=== PATIENT | male | born 1940 | race Caucasian/White ===

== ENCOUNTER 2017-03-13 10:06 | Outpatient (CLI) | payer MEDICARE, BC, SELFPAY | END 2017-03-13 13:30 | disposition home or self-care (01) | PROVIDERS: Visit Provider Internal Medicine | DX: R06.02 Shortness of breath (principal); Z86.39 Personal history of other endocrine, nutritional and metabolic disease; C67.9 Malignant neoplasm of bladder, unspecified | CPT/HCPCS: 71250; 94060; 94620; 94726; 94729; 96365; J0256 ==

== ENCOUNTER 2017-03-21 09:00 | Outpatient (CLI) | payer MEDICARE, BC, SELFPAY | END 2017-03-21 11:55 | disposition home or self-care (01) | PROVIDERS: Visit Provider Internal Medicine Adolescent Medicine | DX: C67.9 Malignant neoplasm of bladder, unspecified (principal) | CPT/HCPCS: 82728; 96365; J0256 ==

== ENCOUNTER 2017-03-28 11:30 | Outpatient (CLI) | payer MEDICARE, BC, SELFPAY ==
[2017-03-28 12:02] VITALS: BMI 24.7
[2017-03-28 14:30] VITALS: BP 145/70; PULSE 83; RESP 20; TEMP 37.1; O2SAT 96
== END 2017-03-28 15:00 | disposition home or self-care (01) ==
LOC: INF 13:16
PROVIDERS: Family Provider Internal Medicine Adolescent Medicine; PCP Internal Medicine Adolescent Medicine; Visit Provider Internal Medicine Adolescent Medicine
DX: C67.9 Malignant neoplasm of bladder, unspecified (principal)
CPT/HCPCS: 96365; 96366; 99195; J0256

== ENCOUNTER 2017-04-04 12:30 | Outpatient (CLI) | payer MEDICARE, BC, SELFPAY ==
[2017-04-04 12:51] VITALS: BMI 25.2
[2017-04-04 13:20] VITALS: BP 141/83; PULSE 68; RESP 20; TEMP 36.9; O2SAT 98
[2017-04-04 14:00] VITALS: BP 135/78; PULSE 72; RESP 18; TEMP 36.9; O2SAT 98
[2017-04-04 14:25] LABS: Ferritin 52 ng/mL (8-388)
[2017-04-04 14:55] VITALS: BP 133/71; PULSE 68; RESP 18; TEMP 36.9; O2SAT 98
--- NOTE | 2017-04-04 15:15 | PC.NURSE ---
START TIME 1320 STOP TIME 2467
--- NOTE | 2017-04-04 15:16 | PC.NURSE ---
START TIME 1320 STOP TIME 1500
== END 2017-04-04 15:10 | disposition home or self-care (01) ==
PROVIDERS: Family Provider Internal Medicine Adolescent Medicine; PCP Internal Medicine Adolescent Medicine; Visit Provider Internal Medicine Adolescent Medicine
DX: C67.9 Malignant neoplasm of bladder, unspecified (principal)
CPT/HCPCS: 82728; 96365; J0256

== ENCOUNTER 2017-04-11 12:15 | Outpatient (CLI) | payer MEDICARE, BC, SELFPAY ==
[2017-04-11 12:55] VITALS: BP 134/87; PULSE 90; RESP 20; O2SAT 93
[2017-04-11 13:25] VITALS: BP 170/88; PULSE 86; RESP 18
[2017-04-11 13:55] VITALS: BP 129/72; PULSE 81; RESP 18
[2017-04-11 14:25] VITALS: BP 128/79; PULSE 78; RESP 18
[2017-04-11 14:40] VITALS: BP 140/76; PULSE 79; RESP 18
--- NOTE | 2017-04-11 15:03 | PC.NURSE ---
TOTAL VOLUME INCLUDES PROLASTIN AND NS.
== END 2017-04-11 15:00 | disposition home or self-care (01) ==
LOC: INF 12:23
PROVIDERS: Family Provider Internal Medicine Adolescent Medicine; PCP Internal Medicine Adolescent Medicine; Visit Provider Internal Medicine Adolescent Medicine
DX: C67.9 Malignant neoplasm of bladder, unspecified (principal)
CPT/HCPCS: 96365; 96366; J0256

== ENCOUNTER 2017-04-18 10:35 | Outpatient (CLI) | payer MEDICARE, BC, SELFPAY ==
[2017-04-18 10:34] VITALS: BP 141/58; PULSE 68; RESP 20; TEMP 36.4; O2SAT 98
[2017-04-18 15:20] VITALS: BP 123/49; PULSE 68; RESP 20; TEMP 36.4; O2SAT 98
== END 2017-04-18 12:00 | disposition home or self-care (01) ==
LOC: INF 15:25
PROVIDERS: Family Provider Internal Medicine Adolescent Medicine; PCP Internal Medicine Adolescent Medicine; Visit Provider Internal Medicine Adolescent Medicine
DX: C67.9 Malignant neoplasm of bladder, unspecified (principal)
CPT/HCPCS: 96365; J0256

== ENCOUNTER 2017-04-25 11:00 | Outpatient (CLI) | payer MEDICARE, BC, SELFPAY ==
[2017-04-25 11:45] VITALS: BP 140/80; PULSE 68; RESP 20; TEMP 36.4; O2SAT 98
[2017-04-25 12:30] VITALS: BP 118/70; PULSE 68; RESP 20; TEMP 36.6; O2SAT 96
[2017-04-25 13:05] VITALS: BP 150/65; PULSE 68; RESP 20; TEMP 36.4; O2SAT 94
== END 2017-04-25 13:10 | disposition home or self-care (01) ==
LOC: INF 18:12
PROVIDERS: Family Provider Internal Medicine Adolescent Medicine; PCP Internal Medicine Adolescent Medicine; Visit Provider Internal Medicine Adolescent Medicine
DX: C67.9 Malignant neoplasm of bladder, unspecified (principal)
CPT/HCPCS: 96365; J0256

== ENCOUNTER 2017-05-02 12:00 | Outpatient (CLI) | payer MEDICARE, BC, SELFPAY ==
[2017-05-02 12:49] VITALS: BMI 24.7
[2017-05-02 13:10] VITALS: BP 164/85; PULSE 72; RESP 20
[2017-05-02 13:54] LABS: Ferritin 54 ng/mL (8-388)
[2017-05-02 14:10] VITALS: BP 156/81; PULSE 77; RESP 18
--- NOTE | 2017-05-02 17:19 | PC.NURSE ---
NS AND PROLASTIN TOTAL VOLUME = 150 ML
== END 2017-05-02 14:20 | disposition home or self-care (01) ==
LOC: INF 13:09
PROVIDERS: Family Provider Internal Medicine Adolescent Medicine; PCP Internal Medicine Adolescent Medicine; Visit Provider Internal Medicine Adolescent Medicine
DX: C67.9 Malignant neoplasm of bladder, unspecified (principal)
CPT/HCPCS: 82728; 96365; J0256

== ENCOUNTER 2017-05-09 12:00 | Outpatient (CLI) | payer MEDICARE, BC, SELFPAY ==
[2017-05-09 12:30] VITALS: BP 137/75; PULSE 81; RESP 20; TEMP 36.6; O2SAT 95
[2017-05-09 12:45] VITALS: BP 132/69; PULSE 79; RESP 20; TEMP 36.6; O2SAT 96
[2017-05-09 13:15] VITALS: BP 140/72; PULSE 69; RESP 20; O2SAT 95
[2017-05-09 13:45] VITALS: BP 139/68; PULSE 74; RESP 18; O2SAT 95
[2017-05-09 14:00] VITALS: BP 136/78; PULSE 72; RESP 20; TEMP 36.5; O2SAT 94
== END 2017-05-09 14:00 | disposition home or self-care (01) ==
LOC: INF 16:05
PROVIDERS: Family Provider Internal Medicine Adolescent Medicine; PCP Internal Medicine Adolescent Medicine; Visit Provider Internal Medicine Adolescent Medicine
DX: C67.9 Malignant neoplasm of bladder, unspecified (principal)
CPT/HCPCS: 96365; J0256

== ENCOUNTER 2017-05-16 11:00 | Outpatient (CLI) | payer MEDICARE, BC, SELFPAY ==
[2017-05-16 11:45] VITALS: BP 152/85; PULSE 81; RESP 16; O2SAT 94
[2017-05-16 12:15] VITALS: BP 148/81; PULSE 73; RESP 16; O2SAT 94
[2017-05-16 12:45] VITALS: BP 134/71; PULSE 78; RESP 16; O2SAT 94
[2017-05-16 16:31] VITALS: BP 122/71; PULSE 71; RESP 18
--- NOTE | 2017-05-16 16:35 | PC.NURSE ---
iv dc'd @[id number]. CATHETER INTACT. COVERED WITH 2X2S AND FLORINDA PER ROSLYN.
== END 2017-05-16 13:55 | disposition home or self-care (01) ==
LOC: INF 11:15
PROVIDERS: Family Provider Internal Medicine Adolescent Medicine; PCP Internal Medicine Adolescent Medicine; Visit Provider Internal Medicine Adolescent Medicine
DX: C67.9 Malignant neoplasm of bladder, unspecified (principal); Z51.11 Encounter for antineoplastic chemotherapy
CPT/HCPCS: 96365; J0256

== ENCOUNTER 2017-05-23 11:27 | Outpatient (CLI) | payer MEDICARE, BC, SELFPAY ==
[2017-05-23 12:30] VITALS: BP 140/72; PULSE 79; RESP 18; TEMP 36.7; O2SAT 92
[2017-05-23 13:00] VITALS: BP 138/77; PULSE 77
[2017-05-23 13:30] VITALS: BP 101/83; PULSE 77; RESP 22
== END 2017-05-23 13:30 | disposition home or self-care (01) ==
LOC: INF 11:27
PROVIDERS: Family Provider Internal Medicine Adolescent Medicine; PCP Internal Medicine Adolescent Medicine; Visit Provider Internal Medicine Adolescent Medicine
DX: C67.9 Malignant neoplasm of bladder, unspecified
CPT/HCPCS: 96365; J0256

== ENCOUNTER 2017-05-30 11:00 | Outpatient (CLI) | payer MEDICARE, BC, SELFPAY ==
[2017-05-30 11:04] VITALS: BMI 24.7
[2017-05-30 11:59] LABS: Ferritin 48 ng/mL (8-388)
[2017-05-30 12:10] VITALS: BP 161/92; PULSE 75; RESP 20; O2SAT 90
[2017-05-30 12:40] VITALS: BP 152/91; PULSE 81; RESP 18
[2017-05-30 13:10] VITALS: BP 141/74; PULSE 82; RESP 18
[2017-05-30 13:35] VITALS: BP 123/60; PULSE 71; RESP 18
--- NOTE | 2017-05-30 15:48 | PC.NURSE ---
1210 - PROLASTIN INFUSION STARTED AT THIS TIME.
--- NOTE | 2017-05-30 15:51 | PC.NURSE ---
TOTAL VOLUME INCLUDES NS AND PROLASTIN
== END 2017-05-30 14:00 | disposition home or self-care (01) ==
LOC: INF 11:16
PROVIDERS: Family Provider Internal Medicine Adolescent Medicine; PCP Internal Medicine Adolescent Medicine; Visit Provider Internal Medicine Adolescent Medicine
DX: Z51.11 Encounter for antineoplastic chemotherapy (principal); C67.9 Malignant neoplasm of bladder, unspecified
CPT/HCPCS: 82728; 96365; J0256

== ENCOUNTER 2017-06-06 10:50 | Outpatient (CLI) | payer MEDICARE, BC, SELFPAY ==
[2017-06-06 11:05] VITALS: BP 124/70; PULSE 68; RESP 20; TEMP 36.9; O2SAT 96
[2017-06-06 12:00] VITALS: BP 126/70; PULSE 70; RESP 20; TEMP 36.9; O2SAT 96
[2017-06-06 13:00] VITALS: BP 132/70; PULSE 72; RESP 20; TEMP 36.4; O2SAT 96
== END 2017-06-06 13:00 | disposition home or self-care (01) ==
LOC: INF 10:50
PROVIDERS: Family Provider Internal Medicine Adolescent Medicine; PCP Internal Medicine Adolescent Medicine; Visit Provider Internal Medicine Adolescent Medicine
DX: Z51.11 Encounter for antineoplastic chemotherapy (principal); C67.9 Malignant neoplasm of bladder, unspecified
CPT/HCPCS: 96365; 96366; J0256

== ENCOUNTER 2017-06-13 11:40 | Outpatient (CLI) | payer MEDICARE, BC, SELFPAY ==
[2017-06-13 12:20] VITALS: BP 151/92; PULSE 89; RESP 22
[2017-06-13 12:50] VITALS: BP 156/86; PULSE 91; RESP 20
[2017-06-13 13:20] VITALS: BP 148/80; PULSE 90; RESP 20
[2017-06-13 13:40] VITALS: BP 142/72; PULSE 91; RESP 20
== END 2017-06-13 15:10 | disposition home or self-care (01) ==
LOC: INF 11:48
PROVIDERS: Family Provider Internal Medicine Adolescent Medicine; PCP Internal Medicine Adolescent Medicine; Visit Provider Internal Medicine Adolescent Medicine
DX: C67.9 Malignant neoplasm of bladder, unspecified (principal)
CPT/HCPCS: 96365; J0256

== ENCOUNTER 2017-06-20 10:40 | Outpatient (CLI) | payer MEDICARE, BC, SELFPAY ==
[2017-06-20 11:30] VITALS: BP 140/88; PULSE 79; RESP 20
[2017-06-20 12:00] VITALS: BP 158/83; PULSE 101; RESP 18
[2017-06-20 12:30] VITALS: BP 144/72; PULSE 88; RESP 18
--- NOTE | 2017-06-20 14:18 | PC.NURSE ---
TOTAL VOLUME INCLUDES PROLASTIN AND NS
== END 2017-06-20 14:00 | disposition home or self-care (01) ==
LOC: INF 10:44
PROVIDERS: Family Provider Internal Medicine Adolescent Medicine; PCP Internal Medicine Adolescent Medicine; Visit Provider Internal Medicine Adolescent Medicine
DX: Z51.11 Encounter for antineoplastic chemotherapy (principal); C67.9 Malignant neoplasm of bladder, unspecified
CPT/HCPCS: 96365; J0256

== ENCOUNTER → 2017-06-23 10:42 | Outpatient (CLI) | payer MEDICARE, BC, SELFPAY ==
--- NOTE | 2017-06-23 10:55 | XR_ITS ---
XR chest 2V XR chest 2V Ordering Physician: Fatemeh Harper Patient Age: 76 years: Male HISTORY: ITS.REASON: COPD, SOB TECHNIQUE: PA and lateral chest COMPARISON :02/25/2017 2 view chest . Also CTA chest from February 2017 FINDINGS Advanced COPD hyperexpansion again noted but I see nothing definitely acute. No focal pneumonia. No pneumothorax. No pleural effusion. Abundant chronic changes . Again on as on previous studies are some thickening at the top of a bleb along,. Beneath the fissure on right. Most prominent bleb is was previously seen at the medial right base, again noted-stable. Fibrotic changes at the left lower lobe are again noted and yield stable coarsening markings here. No pleural effusion with no pneumothorax. Heart jaky and Structures appear stable. Chest wall intact. Old wedge compression fracture at lower T-spine stable I believe T12 IMPRESSION: Nothing definitely acute Stable chest Advanced COPD/emphysema
[2017-06-23 11:03] LABS: Basophils % 0.3 % (0.1-2.0); Eosinophils # 0.2 K/mm3 (0.0-0.4); Eosinophils % 1.7 % (0.1-12.0); Hematocrit 43.8 % (42.0-52.0); Hemoglobin 13.3 g/dL (14.1-18.0); Lymphocytes # 1.4 K/mm3 (0.7-4.5); Mean Corpuscular HGB Conc 30.4 g/dL (31.8-35.4); Mean Corpuscular Hemoglobin 20.7 pg (27.0-31.2); Mean Corpuscular Volume 68.3 fl (80-94); Mean Platelet Volume 8.2 fl (7.4-10.4); Monocytes # 0.8 K/mm3 (0.1-1.0); Monocytes % 7.7 % (1.7-9.3); Neutrophils # 8.5 K/mm3 (1.8-7.8); Neutrophils % 77.3 % (37.0-80.0); Platelet Count 160 K/mm3 (142-424); Red Blood Count 6.42 M/mm3 (4.60-6.20); Red Cell Distribution Width 16.7 % (11.5-17.5)
[2017-06-23 11:08] LABS: Alanine Aminotransferase 24 U/L (12-78); Albumin Level 3.2 gm/dL (3.4-5.0); Albumin/Globulin Ratio 0.8 (1.1-1.8); Alkaline Phosphatase 114 U/L (46-116); Anion Gap 10.2 mEq/L (5-15); Aspartate Amino Transferase 17 U/L (15-37); Bilirubin,Total 1.4 mg/dL (0.2-1.0); Blood Urea Nitrogen 20 mg/dL (7-18); Calcium 8.5 mg/dL (8.5-10.1); Carbon Dioxide 29 mmol/L (21.0-32.0); Chloride 106 mmol/L (98-107); Creatinine,Serum 0.75 mg/dL (0.70-1.30); Estimated Glomerular Filt Rate 101 ml/min (>60); GFR (African American) 122 ML/MIN (>60); Globulin 3.8 gm/dl (1.3-3.2); Glucose 94 mg/dL (74-106); Potassium 4.2 mmoL/L (3.5-5.1); Sodium 141 mmol/L (136-145)
== END ==
PROVIDERS: Visit Provider Nurse Practitioner Family
DX: J44.1 Chronic obstructive pulmonary disease with (acute) exacerbation (principal); R06.02 Shortness of breath
CPT/HCPCS: 36415; 71046; 80053; 85025

== ENCOUNTER 2017-06-27 11:35 | Outpatient (CLI) | payer MEDICARE, BC, SELFPAY ==
[2017-06-27 11:55] VITALS: BMI 25.4
[2017-06-27 12:40] VITALS: BP 147/74; PULSE 79; RESP 20
[2017-06-27 13:03] LABS: Ferritin 155 ng/mL (8-388)
[2017-06-27 14:30] VITALS: BP 130/80; PULSE 91; RESP 18
== END 2017-06-27 14:45 | disposition home or self-care (01) ==
LOC: INF 11:44
PROVIDERS: Family Provider Internal Medicine Adolescent Medicine; PCP Internal Medicine Adolescent Medicine; Visit Provider Internal Medicine Adolescent Medicine
DX: Z51.11 Encounter for antineoplastic chemotherapy (principal); C67.9 Malignant neoplasm of bladder, unspecified
CPT/HCPCS: 82728; 96365; 96366; J0256

== ENCOUNTER 2017-07-04 09:50 | Outpatient (CLI) | payer MEDICARE, BC, SELFPAY ==
[2017-07-04 11:30] VITALS: BP 125/78; PULSE 68; RESP 20; TEMP 36.9; O2SAT 98
[2017-07-04 12:30] VITALS: BP 122/70; PULSE 68; RESP 20; TEMP 36.9; O2SAT 96
[2017-07-04 13:40] VITALS: BP 135/70; PULSE 68; RESP 20; TEMP 36.9; O2SAT 96
== END 2017-07-04 13:45 | disposition home or self-care (01) ==
LOC: INF 11:00
PROVIDERS: Family Provider Internal Medicine Adolescent Medicine; PCP Internal Medicine Adolescent Medicine; Visit Provider Internal Medicine Adolescent Medicine
DX: C67.9 Malignant neoplasm of bladder, unspecified (principal)
CPT/HCPCS: 96365; 96366; 99195; J0256

== ENCOUNTER 2017-07-11 09:25 | Outpatient (CLI) | payer MEDICARE, BC, SELFPAY ==
[2017-07-11 09:43] VITALS: BMI 25.4
[2017-07-11 10:50] VITALS: BP 166/68; PULSE 77; RESP 20; O2SAT 94
[2017-07-11 10:59] LABS: Ferritin 79 ng/mL (8-388)
[2017-07-11 11:20] VITALS: BP 149/73; PULSE 88; RESP 18
[2017-07-11 11:50] VITALS: BP 142/84; PULSE 83; RESP 18
[2017-07-11 12:10] VITALS: BP 127/103; PULSE 100; RESP 18
== END 2017-07-11 12:40 | disposition home or self-care (01) ==
LOC: INF 09:40
PROVIDERS: Family Provider Internal Medicine Adolescent Medicine; PCP Internal Medicine Adolescent Medicine; Visit Provider Internal Medicine Adolescent Medicine
DX: Z51.11 Encounter for antineoplastic chemotherapy (principal); R79.89 Other specified abnormal findings of blood chemistry; C67.9 Malignant neoplasm of bladder, unspecified
CPT/HCPCS: 82728; 96365; J0256

== ENCOUNTER → 2017-07-15 08:42 | Outpatient (POV) | payer MEDICARE, BC, SELFPAY | PROVIDERS: Visit Provider Internal Medicine | DX: Z00.00 Encounter for general adult medical examination without abnormal findings (principal) ==

== ENCOUNTER 2017-07-18 13:41 | Outpatient (CLI) | payer MEDICARE, BC, SELFPAY ==
[2017-07-18 14:10] VITALS: BP 122/78; PULSE 66; RESP 20; TEMP 37.1; O2SAT 96
[2017-07-18 15:30] VITALS: BP 142/75; PULSE 68; RESP 20; TEMP 36.4; O2SAT 96
== END 2017-07-18 15:20 | disposition home or self-care (01) ==
LOC: INF 13:41
PROVIDERS: Family Provider Internal Medicine Adolescent Medicine; Visit Provider Internal Medicine Adolescent Medicine
DX: C67.9 Malignant neoplasm of bladder, unspecified (principal)
CPT/HCPCS: 96365; J0256

== ENCOUNTER 2017-07-25 08:21 | Outpatient (CLI) | payer MEDICARE, BC, SELFPAY ==
[2017-07-25 10:00] VITALS: BP 162/88; PULSE 67; RESP 18; TEMP 36.6
[2017-07-25 10:30] VITALS: BP 158/78; PULSE 62; RESP 18
[2017-07-25 11:00] VITALS: BP 164/89; PULSE 66; RESP 18
[2017-07-25 11:15] VITALS: BP 164/89; PULSE 66; RESP 18
== END 2017-07-25 11:15 | disposition home or self-care (01) ==
LOC: INF 08:21
PROVIDERS: Family Provider Internal Medicine Adolescent Medicine; Visit Provider Internal Medicine Adolescent Medicine
DX: C67.9 Malignant neoplasm of bladder, unspecified (principal)
CPT/HCPCS: 96365; J0256

== ENCOUNTER 2017-08-01 15:00 | Outpatient (CLI) | payer MEDICARE, BC, SELFPAY ==
[2017-08-01 15:15] VITALS: BP 124/70; PULSE 68; RESP 20; TEMP 36.9; O2SAT 98
[2017-08-01 16:20] VITALS: BP 128/70; PULSE 68; RESP 20; TEMP 36.9; O2SAT 96
== END 2017-08-01 16:30 | disposition home or self-care (01) ==
LOC: INF 16:28
PROVIDERS: Family Provider Internal Medicine Adolescent Medicine; Visit Provider Internal Medicine Adolescent Medicine
DX: C67.9 Malignant neoplasm of bladder, unspecified (principal)
CPT/HCPCS: 96365; J0256

== ENCOUNTER 2017-08-08 12:30 | Outpatient (CLI) | payer MEDICARE, BC, SELFPAY ==
[2017-08-08 14:15] VITALS: BP 128/69; PULSE 82; RESP 20; TEMP 36.5; O2SAT 96
[2017-08-08 14:45] VITALS: BP 128/67; PULSE 79; RESP 18
[2017-08-08 15:25] VITALS: BP 132/71; PULSE 79; RESP 18
== END 2017-08-08 15:46 | disposition home or self-care (01) ==
LOC: INF 12:54
PROVIDERS: Family Provider Internal Medicine Adolescent Medicine; Visit Provider Internal Medicine Adolescent Medicine
DX: Z51.11 Encounter for antineoplastic chemotherapy (principal); C67.9 Malignant neoplasm of bladder, unspecified
CPT/HCPCS: 96365; 99195; J0256

== ENCOUNTER 2017-08-15 11:31 | Outpatient (CLI) | payer MEDICARE, BC, SELFPAY ==
[2017-08-15 11:37] VITALS: BMI 25.4
[2017-08-15 12:00] VITALS: BP 151/87; PULSE 72; RESP 18; TEMP 36.7; O2SAT 94
[2017-08-15 12:20] VITALS: BP 166/97; PULSE 83; RESP 22
[2017-08-15 12:44] LABS: Ferritin 76 ng/mL (8-388)
[2017-08-15 12:50] VITALS: BP 158/78; PULSE 82; RESP 22
[2017-08-15 13:20] VITALS: BP 141/74; PULSE 74; RESP 20
[2017-08-15 13:45] VITALS: BP 141/76; PULSE 79; RESP 18
== END 2017-08-15 13:45 | disposition home or self-care (01) ==
LOC: INF 11:31
PROVIDERS: Family Provider Internal Medicine Adolescent Medicine; Visit Provider Internal Medicine Adolescent Medicine
DX: Z51.11 Encounter for antineoplastic chemotherapy (principal); C67.9 Malignant neoplasm of bladder, unspecified
CPT/HCPCS: 82728; 96365; J0256

== ENCOUNTER 2017-08-22 12:25 | Outpatient (CLI) | payer MEDICARE, BC, SELFPAY ==
[2017-08-22 13:30] VITALS: BP 120/74; PULSE 87; RESP 20; O2SAT 91
[2017-08-22 14:00] VITALS: BP 126/58; PULSE 84; RESP 20
[2017-08-22 14:30] VITALS: BP 128/58; PULSE 74; RESP 20
== END 2017-08-22 15:00 | disposition home or self-care (01) ==
LOC: INF 12:44
PROVIDERS: Family Provider Internal Medicine Adolescent Medicine; Visit Provider Internal Medicine Adolescent Medicine
DX: Z51.11 Encounter for antineoplastic chemotherapy (principal); C67.9 Malignant neoplasm of bladder, unspecified
CPT/HCPCS: 96365; J0256

== ENCOUNTER 2017-08-29 09:50 | Outpatient (CLI) | payer MEDICARE, BC, SELFPAY ==
[2017-08-29 10:14] VITALS: BMI 25.4
[2017-08-29 10:55] VITALS: BP 155/88; PULSE 77; RESP 20; O2SAT 97
[2017-08-29 10:57] LABS: Ferritin 53 ng/mL (8-388)
[2017-08-29 11:25] VITALS: BP 151/87; PULSE 72; RESP 20
[2017-08-29 11:55] VITALS: BP 156/97; PULSE 85; RESP 20
[2017-08-29 12:20] VITALS: BP 124/72; PULSE 77; RESP 20
== END 2017-08-29 12:40 | disposition home or self-care (01) ==
LOC: INF 10:12
PROVIDERS: Family Provider Internal Medicine Adolescent Medicine; Visit Provider Internal Medicine Adolescent Medicine
DX: Z51.11 Encounter for antineoplastic chemotherapy (principal); C67.9 Malignant neoplasm of bladder, unspecified; E88.01 Alpha-1-antitrypsin deficiency
CPT/HCPCS: 82728; 96365; J0256

== ENCOUNTER 2017-09-05 10:50 | Outpatient (CLI) | payer MEDICARE, BC, SELFPAY ==
[2017-09-05 11:50] VITALS: BP 161/95; PULSE 70; RESP 20; O2SAT 96
[2017-09-05 12:20] VITALS: BP 139/70; PULSE 75; RESP 18
[2017-09-05 12:50] VITALS: BP 141/82; PULSE 79; RESP 18
[2017-09-05 13:10] VITALS: BP 130/73; PULSE 84; RESP 20
== END 2017-09-05 13:45 | disposition home or self-care (01) ==
LOC: INF 11:04
PROVIDERS: Family Provider Internal Medicine Adolescent Medicine; Visit Provider Internal Medicine Adolescent Medicine
DX: E88.01 Alpha-1-antitrypsin deficiency (principal)
CPT/HCPCS: 96365; J0256

== ENCOUNTER 2017-09-12 12:30 | Outpatient (CLI) | payer MEDICARE, BC, SELFPAY ==
[2017-09-12 13:15] VITALS: BP 170/95; PULSE 69; RESP 20; O2SAT 98
[2017-09-12 13:45] VITALS: BP 149/72; PULSE 74; RESP 18
[2017-09-12 14:15] VITALS: BP 128/90; PULSE 95; RESP 18
[2017-09-12 15:00] VITALS: BP 134/83; PULSE 76; RESP 18
== END 2017-09-12 15:15 | disposition home or self-care (01) ==
LOC: INF 12:41
PROVIDERS: Family Provider Internal Medicine Adolescent Medicine; Visit Provider Internal Medicine Adolescent Medicine
DX: E88.01 Alpha-1-antitrypsin deficiency (principal)
CPT/HCPCS: 96365; 96366; J0256

== ENCOUNTER 2017-09-19 09:50 | Outpatient (CLI) | payer MEDICARE, BC, SELFPAY ==
[2017-09-19 11:25] VITALS: BP 122/70; PULSE 68; RESP 20; TEMP 36.9; O2SAT 92
[2017-09-19 12:32] VITALS: BP 136/78; PULSE 79; RESP 22; TEMP 36.8; O2SAT 93
== END 2017-09-19 13:00 | disposition home or self-care (01) ==
LOC: INF 09:54
PROVIDERS: Family Provider Internal Medicine Adolescent Medicine; Visit Provider Internal Medicine Adolescent Medicine
DX: E88.01 Alpha-1-antitrypsin deficiency (principal)
CPT/HCPCS: 96365; J0256

== ENCOUNTER 2017-09-26 13:35 | Outpatient (CLI) | payer MEDICARE, BC, SELFPAY ==
[2017-09-26 13:35] VITALS: BP 162/99; PULSE 63; RESP 22; TEMP 36.9; O2SAT 95
[2017-09-26 14:00] VITALS: BP 122/70; PULSE 68; RESP 20; TEMP 36.9; O2SAT 95
[2017-09-26 15:00] VITALS: BP 150/78; PULSE 68; RESP 20; TEMP 36.9; O2SAT 94
== END 2017-09-26 15:15 | disposition home or self-care (01) ==
LOC: INF 14:02
PROVIDERS: Family Provider Internal Medicine Adolescent Medicine; Visit Provider Internal Medicine Adolescent Medicine
DX: E88.01 Alpha-1-antitrypsin deficiency (principal)
CPT/HCPCS: 96365; J0256

== ENCOUNTER → 2017-10-03 11:35 | Outpatient (CLI) | payer MEDICARE, BC, SELFPAY ==
[2017-10-03 12:40] VITALS: BP 133/71; PULSE 68; RESP 20; TEMP 37.1; O2SAT 94
[2017-10-03 13:15] VITALS: BP 136/72; PULSE 68; RESP 20; TEMP 37.1; O2SAT 64
[2017-10-03 13:45] VITALS: BP 140/74; PULSE 68; RESP 20; TEMP 36.7; O2SAT 94
== END ==
PROVIDERS: Family Provider Internal Medicine Adolescent Medicine; Visit Provider Internal Medicine Adolescent Medicine
DX: E88.01 Alpha-1-antitrypsin deficiency (principal)
CPT/HCPCS: 96365; J0256

== ENCOUNTER 2017-10-13 10:59 | Outpatient (CLI) | payer MEDICARE, BC, SELFPAY ==
[2017-10-13 12:50] VITALS: BP 101/69; PULSE 75; RESP 16; TEMP 36.6; O2SAT 95
[2017-10-13 13:30] VITALS: BP 127/71; PULSE 77; RESP 18; O2SAT 95
== END 2017-10-13 13:30 | disposition home or self-care (01) ==
LOC: INF 10:59
PROVIDERS: Family Provider Internal Medicine Adolescent Medicine; Visit Provider Internal Medicine Adolescent Medicine
DX: E88.01 Alpha-1-antitrypsin deficiency (principal)
CPT/HCPCS: 96365; J0256

== ENCOUNTER 2017-10-17 13:45 | Outpatient (CLI) | payer MEDICARE, BC, SELFPAY ==
[2017-10-17 14:11] VITALS: BMI 25.4
[2017-10-17 14:45] VITALS: BP 149/76; PULSE 104; RESP 20; O2SAT 91
[2017-10-17 15:04] LABS: Ferritin 130 ng/mL (8-388)
[2017-10-17 15:15] VITALS: BP 116/59; PULSE 91; RESP 18
[2017-10-17 15:45] VITALS: BP 123/67; PULSE 87; RESP 18
[2017-10-17 16:00] VITALS: BP 134/76; PULSE 91; RESP 18
== END 2017-10-17 16:25 | disposition home or self-care (01) ==
LOC: INF 14:07
PROVIDERS: Family Provider Internal Medicine Adolescent Medicine; Visit Provider Internal Medicine Adolescent Medicine
DX: E88.01 Alpha-1-antitrypsin deficiency (principal); C67.9 Malignant neoplasm of bladder, unspecified
CPT/HCPCS: 82728; 96365; J0256

== ENCOUNTER 2017-10-24 11:50 | Outpatient (CLI) | payer MEDICARE, BC, SELFPAY ==
[2017-10-24 12:45] VITALS: BP 156/92; PULSE 74; RESP 18; TEMP 36.2; O2SAT 97
[2017-10-24 13:15] VITALS: BP 152/94; PULSE 65; RESP 18
[2017-10-24 13:45] VITALS: BP 168/83; PULSE 83; RESP 20
[2017-10-24 14:00] VITALS: BP 168/83; PULSE 83; RESP 20
== END 2017-10-24 14:00 | disposition home or self-care (01) ==
LOC: INF 12:04
PROVIDERS: Family Provider Internal Medicine Adolescent Medicine; Visit Provider Internal Medicine Adolescent Medicine
DX: E88.01 Alpha-1-antitrypsin deficiency (principal)
CPT/HCPCS: 96365; 99195; J0256

== ENCOUNTER 2017-10-31 10:00 | Outpatient (CLI) | payer MEDICARE, BC, SELFPAY ==
[2017-10-31 10:00] VITALS: BMI 25.5
[2017-10-31 11:23] LABS: Ferritin 174 ng/mL (8-388)
[2017-10-31 11:40] VITALS: BP 125/70; PULSE 66; RESP 20; TEMP 36.7; O2SAT 96
[2017-10-31 12:10] VITALS: BP 122/78; PULSE 68; RESP 20; TEMP 36.9; O2SAT 96
[2017-10-31 12:40] VITALS: BP 118/70; PULSE 68; RESP 20; TEMP 36.9; O2SAT 96
== END 2017-10-31 13:00 | disposition home or self-care (01) ==
LOC: INF 10:03
PROVIDERS: Family Provider Internal Medicine Adolescent Medicine; Visit Provider Internal Medicine Adolescent Medicine
DX: R79.89 Other specified abnormal findings of blood chemistry (principal); E88.01 Alpha-1-antitrypsin deficiency
CPT/HCPCS: 82728; 96365; J0256

== ENCOUNTER 2017-11-07 13:33 | Outpatient (CLI) | payer MEDICARE, BC, SELFPAY ==
[2017-11-07 14:32] VITALS: BP 147/78; PULSE 90; RESP 18; TEMP 37.2; O2SAT 95
[2017-11-07 15:44] VITALS: BP 124/68; PULSE 82; RESP 18; TEMP 36.9
== END 2017-11-07 15:47 | disposition home or self-care (01) ==
LOC: INF 13:34
PROVIDERS: Family Provider Internal Medicine Adolescent Medicine; Visit Provider Internal Medicine Adolescent Medicine
DX: Z51.11 Encounter for antineoplastic chemotherapy (principal); E88.01 Alpha-1-antitrypsin deficiency; C67.9 Malignant neoplasm of bladder, unspecified
CPT/HCPCS: 96365; J0256

== ENCOUNTER 2017-11-14 11:21 | Outpatient (CLI) | payer MEDICARE, BC, SELFPAY ==
[2017-11-14 12:45] VITALS: BP 122/70; PULSE 66; RESP 20; TEMP 36.9; O2SAT 96
[2017-11-14 13:45] VITALS: BP 150/70; PULSE 68; RESP 20; TEMP 36.6; O2SAT 92
[2017-11-14 14:10] VITALS: BP 145/70; PULSE 66; RESP 20; TEMP 37.1; O2SAT 96
== END 2017-11-14 14:15 | disposition home or self-care (01) ==
LOC: INF 11:21
PROVIDERS: Family Provider Internal Medicine Adolescent Medicine; Visit Provider Internal Medicine Adolescent Medicine
DX: Z51.11 Encounter for antineoplastic chemotherapy (principal); C67.9 Malignant neoplasm of bladder, unspecified; E88.01 Alpha-1-antitrypsin deficiency
CPT/HCPCS: 96365; 96366; J0256

== ENCOUNTER → 2017-11-21 15:00 | Outpatient (CLI) | payer MEDICARE, BC, SELFPAY ==
[2017-11-21 16:00] VITALS: BP 112/63; PULSE 68; RESP 20; TEMP 36.7; O2SAT 98
[2017-11-21 16:24] VITALS: BP 118/74; PULSE 68; RESP 20; TEMP 36.9; O2SAT 98
[2017-11-21 16:46] VITALS: BP 118/62; PULSE 66; RESP 20; TEMP 36.9; O2SAT 96
== END ==
PROVIDERS: Family Provider Internal Medicine Adolescent Medicine; Visit Provider Internal Medicine Adolescent Medicine
DX: E88.01 Alpha-1-antitrypsin deficiency (principal); C67.9 Malignant neoplasm of bladder, unspecified
CPT/HCPCS: 96365; J0256

== ENCOUNTER 2017-11-28 09:10 | Outpatient (CLI) | payer MEDICARE, BC, SELFPAY ==
[2017-11-28 09:38] VITALS: BMI 24.5
[2017-11-28 10:13] LABS: Basophils % 0.5 % (0.1-2.0); Eosinophils # 0.2 K/mm3 (0.0-0.4); Eosinophils % 3.5 % (0.1-12.0); Hematocrit 40.8 % (42.0-52.0); Hemoglobin 12.6 g/dL (14.1-18.0); Lymphocytes # 1.7 K/mm3 (0.7-4.5); Lymphocytes % 25.2 K/mm3 (10-50); Mean Corpuscular HGB Conc 30.8 g/dL (31.8-35.4); Mean Corpuscular Hemoglobin 20.5 pg (27.0-31.2); Mean Corpuscular Volume 66.4 fl (80-94); Mean Platelet Volume 7.7 fl (7.4-10.4); Monocytes # 0.5 K/mm3 (0.1-1.0); Monocytes % 8.2 % (1.7-9.3); Neutrophils # 4.1 K/mm3 (1.8-7.8); Neutrophils % 62.5 % (37.0-80.0); Platelet Count 189 K/mm3 (142-424); Red Blood Count 6.15 M/mm3 (4.60-6.20); White Blood Count 6.6 K/mm3 (4.8-10.8)
[2017-11-28 10:40] VITALS: BP 120/98; PULSE 66; RESP 20; TEMP 36.7; O2SAT 96
[2017-11-28 10:41] LABS: Alanine Aminotransferase 26 U/L (12-78); Albumin Level 3.3 gm/dL (3.4-5.0); Albumin/Globulin Ratio 0.9 (1.1-1.8); Alkaline Phosphatase 160 U/L (46-116); Anion Gap 10.9 mEq/L (5-15); Aspartate Amino Transferase 20 U/L (15-37); Bilirubin,Direct 0.2 mg/dL (0.0-0.2); Bilirubin,Indirect 0.7 mg/dL (0.0-0.9); Bilirubin,Total 0.9 mg/dL (0.2-1.0); Blood Urea Nitrogen 16 mg/dL (7-18); Calcium 8.4 mg/dL (8.5-10.1); Carbon Dioxide 28 mmol/L (21.0-32.0); Chloride 109 mmol/L (98-107); Creatinine Clearance Estimated 65 mL/min (0-300); Creatinine,Serum 0.77 mg/dL (0.70-1.30); Estimated Glomerular Filt Rate 98 ml/min (>60); Ferritin 116 ng/mL (8-388); GFR (African American) 118 ML/MIN (>60); Globulin 3.7 gm/dl (1.3-3.2); Glucose 94 mg/dL (74-106); Potassium 3.9 mmoL/L (3.5-5.1); Sodium 144 mmol/L (136-145)
[2017-11-28 11:10] VITALS: BP 122/70; PULSE 68; RESP 20; TEMP 36.9; O2SAT 94
[2017-11-28 11:40] VITALS: BP 122/74; PULSE 68; RESP 20; TEMP 36.9; O2SAT 93
== END 2017-11-28 11:55 | disposition home or self-care (01) ==
LOC: INF 09:36
PROVIDERS: Family Provider Internal Medicine Adolescent Medicine; Visit Provider Internal Medicine Adolescent Medicine
DX: Z51.11 Encounter for antineoplastic chemotherapy (principal); E88.01 Alpha-1-antitrypsin deficiency; C67.9 Malignant neoplasm of bladder, unspecified
CPT/HCPCS: 80053; 80076; 82728; 85025; 96365; J0256

== ENCOUNTER 2017-12-05 09:15 | Outpatient (CLI) | payer MEDICARE, BC, SELFPAY ==
[2017-12-05 10:15] VITALS: BP 154/86; PULSE 64; RESP 18; O2SAT 93
[2017-12-05 10:45] VITALS: BP 141/76; PULSE 61; RESP 18
[2017-12-05 11:15] VITALS: BP 179/94; PULSE 79; RESP 18
[2017-12-05 11:30] VITALS: BP 172/91; PULSE 75; RESP 18
== END 2017-12-05 11:50 | disposition home or self-care (01) ==
LOC: INF 09:34
PROVIDERS: PCP Internal Medicine Adolescent Medicine; Visit Provider Internal Medicine Adolescent Medicine
DX: E88.01 Alpha-1-antitrypsin deficiency (principal); C67.9 Malignant neoplasm of bladder, unspecified
CPT/HCPCS: 96365; J0256

== ENCOUNTER 2017-12-12 10:45 | Outpatient (CLI) | payer MEDICARE, BC, SELFPAY ==
[2017-12-12 10:55] VITALS: BMI 25.1
[2017-12-12 12:15] VITALS: BP 131/76; PULSE 67; RESP 20
[2017-12-12 12:33] LABS: Ferritin 104 ng/mL (8-388)
[2017-12-12 12:45] VITALS: BP 120/78; PULSE 77; RESP 18
[2017-12-12 13:15] VITALS: BP 121/71; PULSE 63; RESP 18
== END 2017-12-12 14:10 | disposition home or self-care (01) ==
LOC: INF 10:52
PROVIDERS: PCP Internal Medicine Adolescent Medicine; Visit Provider Internal Medicine Adolescent Medicine
DX: E88.01 Alpha-1-antitrypsin deficiency (principal); C67.9 Malignant neoplasm of bladder, unspecified
CPT/HCPCS: 82728; 96365; 99195; J0256

== ENCOUNTER 2017-12-19 13:30 | Outpatient (CLI) | payer MEDICARE, BC, SELFPAY ==
[2017-12-19 13:30] VITALS: BP 167/88; PULSE 82; RESP 18; TEMP 36.6; O2SAT 94
[2017-12-19 14:12] VITALS: BMI 25.2
[2017-12-19 14:46] LABS: Ferritin 113 ng/mL (8-388)
[2017-12-19 15:31] VITALS: BMI 25.1
== END 2017-12-19 16:05 | disposition home or self-care (01) ==
LOC: INF 14:51
PROVIDERS: Visit Provider Internal Medicine Adolescent Medicine
DX: E88.01 Alpha-1-antitrypsin deficiency; R79.89 Other specified abnormal findings of blood chemistry
CPT/HCPCS: 82728; 96365; J0256

== ENCOUNTER 2017-12-26 12:17 | Outpatient (CLI) | payer MEDICARE, BC, SELFPAY ==
[2017-12-26 13:15] VITALS: BP 118/74; PULSE 68; RESP 20; TEMP 36.4; O2SAT 93
[2017-12-26 13:40] VITALS: BP 116/70; PULSE 66; RESP 20; TEMP 36.9; O2SAT 93
[2017-12-26 14:30] VITALS: BP 142/78; PULSE 66; RESP 20; TEMP 36.9; O2SAT 93
== END 2017-12-26 14:30 | disposition home or self-care (01) ==
LOC: INF 12:17
PROVIDERS: Family Provider Internal Medicine Adolescent Medicine; PCP Internal Medicine Adolescent Medicine; Visit Provider Internal Medicine Adolescent Medicine
DX: E88.01 Alpha-1-antitrypsin deficiency (principal)
CPT/HCPCS: 96365; 99195; J0256

== ENCOUNTER 2018-01-02 09:35 | Outpatient (CLI) | payer MEDICARE, BC, SELFPAY ==
[2018-01-02 09:44] VITALS: BMI 25.1
[2018-01-02 10:15] VITALS: BP 142/75; PULSE 43; RESP 20; O2SAT 95
[2018-01-02 10:31] LABS: Ferritin 99 ng/mL (8-388)
[2018-01-02 10:45] VITALS: BP 162/88; PULSE 74; RESP 18
[2018-01-02 11:15] VITALS: BP 156/83; PULSE 72; RESP 18
== END 2018-01-02 11:40 | disposition home or self-care (01) ==
LOC: INF 09:41
PROVIDERS: Family Provider Internal Medicine Adolescent Medicine; PCP Internal Medicine Adolescent Medicine; Visit Provider Internal Medicine Adolescent Medicine
DX: R79.89 Other specified abnormal findings of blood chemistry (principal); E88.01 Alpha-1-antitrypsin deficiency
CPT/HCPCS: 82728; 96365; J0256

== ENCOUNTER 2018-01-09 09:05 | Outpatient (CLI) | payer MEDICARE, BC, SELFPAY ==
[2018-01-09 10:10] VITALS: BP 131/75; PULSE 75; RESP 22; TEMP 36.5; O2SAT 93
[2018-01-09 10:47] VITALS: RESP 20
--- NOTE | 2018-01-09 10:48 | PC.NURSE ---
pt sleeping at this time, no distress noted
[2018-01-09 11:15] VITALS: BP 135/80; PULSE 76; RESP 22; O2SAT 93
== END 2018-01-09 11:26 | disposition home or self-care (01) ==
LOC: INF 09:32
PROVIDERS: Family Provider Internal Medicine Adolescent Medicine; PCP Internal Medicine Adolescent Medicine; Visit Provider Internal Medicine Adolescent Medicine
DX: E88.01 Alpha-1-antitrypsin deficiency (principal)
CPT/HCPCS: 96365; J0256

== ENCOUNTER 2018-01-16 14:45 | Outpatient (CLI) | payer MEDICARE, BC, SELFPAY ==
[2018-01-16 15:25] VITALS: BP 151/96; PULSE 76; RESP 20; O2SAT 95
[2018-01-16 15:55] VITALS: BP 157/89; PULSE 76; RESP 18
[2018-01-16 16:25] VITALS: BP 148/82; PULSE 78; RESP 18
[2018-01-16 16:45] VITALS: BP 145/78; PULSE 74; RESP 18
== END 2018-01-16 17:10 | disposition home or self-care (01) ==
LOC: INF 15:07
PROVIDERS: Visit Provider Internal Medicine Adolescent Medicine
DX: E88.01 Alpha-1-antitrypsin deficiency (principal)
CPT/HCPCS: 96365; J0256

== ENCOUNTER 2018-01-23 11:51 | Outpatient (CLI) | payer MEDICARE, BC, SELFPAY ==
[2018-01-23 12:15] VITALS: BP 133/74; PULSE 68; RESP 20; TEMP 36.9; O2SAT 94
[2018-01-23 12:45] VITALS: BP 132/74; PULSE 68; RESP 20; TEMP 36.9; O2SAT 94
[2018-01-23 13:20] VITALS: BP 133/74; PULSE 68; RESP 20; TEMP 36.9; O2SAT 94
== END 2018-01-23 13:15 | disposition home or self-care (01) ==
LOC: INF 11:51
PROVIDERS: Visit Provider Internal Medicine Adolescent Medicine
DX: E88.01 Alpha-1-antitrypsin deficiency (principal)
CPT/HCPCS: 96365; J0256

== ENCOUNTER 2018-01-30 12:35 | Outpatient (CLI) | payer MEDICARE, BC, SELFPAY ==
[2018-01-30 13:14] VITALS: BMI 23.1
[2018-01-30 13:35] VITALS: BP 153/71; PULSE 79; RESP 20
[2018-01-30 13:59] LABS: Ferritin 86 ng/mL (8-388)
[2018-01-30 14:05] VITALS: BP 162/96; PULSE 84; RESP 18
[2018-01-30 14:35] VITALS: BP 123/54; PULSE 78; RESP 18
== END 2018-01-30 15:40 | disposition home or self-care (01) ==
LOC: INF 12:56
PROVIDERS: Visit Provider Internal Medicine Adolescent Medicine
DX: R79.89 Other specified abnormal findings of blood chemistry (principal); E88.01 Alpha-1-antitrypsin deficiency
CPT/HCPCS: 82728; 96365; J0256

== ENCOUNTER 2018-02-06 12:23 | Outpatient (CLI) | payer MEDICARE, BC, SELFPAY ==
[2018-02-06 13:20] VITALS: BP 143/84; PULSE 72; RESP 20; O2SAT 92
[2018-02-06 13:50] VITALS: BP 140/80; PULSE 84; RESP 18
[2018-02-06 14:20] VITALS: BP 124/65; PULSE 70; RESP 18
== END 2018-02-06 14:45 | disposition home or self-care (01) ==
LOC: INF 12:23
PROVIDERS: Visit Provider Internal Medicine Adolescent Medicine
DX: E88.01 Alpha-1-antitrypsin deficiency (principal)
CPT/HCPCS: 96365; 99195; J0256

== ENCOUNTER 2018-02-11 13:50 | Outpatient (CLI) | payer MEDICARE, BC, SELFPAY ==
[2018-02-11 14:05] VITALS: BP 140/91; PULSE 82; RESP 22; TEMP 36.3; O2SAT 95
[2018-02-11 14:35] VITALS: RESP 20; O2SAT 2
[2018-02-11 15:05] VITALS: PULSE 80; RESP 20
[2018-02-11 15:32] VITALS: BP 163/98; PULSE 88; RESP 20; O2SAT 95
== END 2018-02-11 15:39 | disposition home or self-care (01) ==
LOC: INF 13:50
PROVIDERS: Visit Provider Internal Medicine Adolescent Medicine
DX: E88.01 Alpha-1-antitrypsin deficiency (principal)
CPT/HCPCS: 96365; J0256

== ENCOUNTER 2018-02-20 14:35 | Outpatient (CLI) | payer MEDICARE, BC, SELFPAY ==
[2018-02-20 15:10] VITALS: BP 146/80; PULSE 77; RESP 20
[2018-02-20 15:40] VITALS: BP 157/103; PULSE 78; RESP 18
[2018-02-20 16:10] VITALS: BP 148/79; PULSE 78; RESP 18
[2018-02-20 16:40] VITALS: BP 128/71; PULSE 67; RESP 18
== END 2018-02-20 17:05 | disposition home or self-care (01) ==
LOC: INF 14:40
PROVIDERS: Visit Provider Internal Medicine Adolescent Medicine
DX: E88.01 Alpha-1-antitrypsin deficiency (principal)
CPT/HCPCS: 96365; J0256

== ENCOUNTER 2018-02-27 12:40 | Outpatient (CLI) | payer MEDICARE, BC, SELFPAY ==
[2018-02-27 13:15] VITALS: BP 179/92; PULSE 82; RESP 20
[2018-02-27 13:45] VITALS: BP 146/74; PULSE 84; RESP 20
[2018-02-27 14:15] VITALS: BP 134/64; PULSE 76; RESP 18
[2018-02-27 14:45] VITALS: BP 136/67; PULSE 75; RESP 18
== END 2018-02-27 15:30 | disposition home or self-care (01) ==
LOC: INF 12:46
PROVIDERS: Visit Provider Internal Medicine Adolescent Medicine
DX: E88.01 Alpha-1-antitrypsin deficiency (principal)
CPT/HCPCS: 96365; J0256

== ENCOUNTER 2018-03-06 11:55 | Outpatient (CLI) | payer MEDICARE, BC, SELFPAY ==
[2018-03-06 12:02] VITALS: BMI 23.1
[2018-03-06 12:30] VITALS: BP 153/92; PULSE 74; RESP 20; O2SAT 95
[2018-03-06 13:00] VITALS: BP 147/86; PULSE 83; RESP 20
[2018-03-06 13:04] LABS: Ferritin 76 ng/mL (8-388)
[2018-03-06 13:30] VITALS: BP 149/78; PULSE 83; RESP 18
[2018-03-06 14:00] VITALS: BP 150/76; PULSE 79; RESP 18
[2018-03-06 14:30] VITALS: BP 126/65; PULSE 79; RESP 18
== END 2018-03-06 15:00 | disposition home or self-care (01) ==
LOC: INF 12:00
PROVIDERS: Visit Provider Internal Medicine Adolescent Medicine
DX: E88.01 Alpha-1-antitrypsin deficiency (principal); R79.89 Other specified abnormal findings of blood chemistry
CPT/HCPCS: 82728; 96365; 96366; J0256

== ENCOUNTER 2018-03-13 13:22 | Outpatient (CLI) | payer MEDICARE, BC, SELFPAY ==
[2018-03-13 13:30] VITALS: BP 169/84; PULSE 68; RESP 20; TEMP 36.9; O2SAT 95
[2018-03-13 14:30] VITALS: BP 135/82; PULSE 72; RESP 20; TEMP 36.9; O2SAT 94
== END 2018-03-13 14:30 | disposition home or self-care (01) ==
LOC: INF 13:22
PROVIDERS: Visit Provider Internal Medicine Adolescent Medicine
DX: E88.01 Alpha-1-antitrypsin deficiency (principal)
CPT/HCPCS: 96365; J0256

== ENCOUNTER 2018-03-20 12:46 | Outpatient (CLI) | payer MEDICARE, BC, SELFPAY ==
[2018-03-20 14:00] VITALS: BP 146/78; PULSE 70; RESP 20; TEMP 36.9; O2SAT 95
[2018-03-20 15:00] VITALS: BP 138/71; PULSE 72; RESP 20; TEMP 36.9; O2SAT 95
[2018-03-20 15:30] VITALS: BP 142/74; PULSE 68; RESP 20; TEMP 36.9; O2SAT 95
== END 2018-03-20 15:30 | disposition home or self-care (01) ==
LOC: INF 12:46
PROVIDERS: Visit Provider Internal Medicine Adolescent Medicine
DX: E88.01 Alpha-1-antitrypsin deficiency (principal)
CPT/HCPCS: 96365; 96366; 99195; J0256

== ENCOUNTER 2018-03-27 12:44 | Outpatient (CLI) | payer MEDICARE, BC, SELFPAY ==
[2018-03-27 13:14] VITALS: BMI 24.6
[2018-03-27 13:30] VITALS: BP 180/100; PULSE 77; RESP 18; O2SAT 93
[2018-03-27 13:45] LABS: Ferritin 62 ng/mL (8-388)
[2018-03-27 14:00] VITALS: BP 139/75; PULSE 78; RESP 18
[2018-03-27 14:40] VITALS: BP 144/78; PULSE 77; RESP 18; O2SAT 93
== END 2018-03-27 14:44 | disposition home or self-care (01) ==
LOC: INF 12:44
PROVIDERS: Visit Provider Internal Medicine Adolescent Medicine
DX: E88.01 Alpha-1-antitrypsin deficiency (principal); C67.9 Malignant neoplasm of bladder, unspecified
CPT/HCPCS: 82728; 96365; J0256

== ENCOUNTER 2018-04-03 14:39 | Outpatient (CLI) | payer MEDICARE, BC, SELFPAY ==
[2018-04-03] VITALS (7 sets, daily range): BP systolic 124–139; BP diastolic 69–82; PULSE 74–83; RESP 18–22; TEMP 36.5–36.7; O2SAT 94–95; BMI 24.6
[2018-04-03 15:22] LABS: Basophils % 0.5 % (0.1-2.0); Eosinophils # 0.3 K/mm3 (0.0-0.4); Eosinophils % 4.3 % (0.1-12.0); Hematocrit 41.3 % (42.0-52.0); Hemoglobin 12.1 g/dL (14.1-18.0); Lymphocytes # 1.6 K/mm3 (0.7-4.5); Lymphocytes % 24.7 % (10-50); Mean Corpuscular HGB Conc 29.4 g/dL (31.8-35.4); Mean Platelet Volume 7.9 fl (7.4-10.4); Monocytes # 0.7 K/mm3 (0.1-1.0); Monocytes % 10.3 % (1.7-9.3); Neutrophils % 60.3 % (37.0-80.0); Platelet Count 181 K/mm3 (142-424); Red Blood Count 6.08 M/mm3 (4.60-6.20); Red Cell Distribution Width 16.3 % (11.5-17.5); White Blood Count 6.6 K/mm3 (4.8-10.8)
[2018-04-03 15:50] LABS: Alanine Aminotransferase 26 U/L (12-78); Albumin Level 3.5 gm/dL (3.4-5.0); Alkaline Phosphatase 127 U/L (46-116); Anion Gap 11.3 mEq/L (5-15); Aspartate Amino Transferase 21 U/L (15-37); Bilirubin,Direct 0.3 mg/dL (0.0-0.2); Bilirubin,Total 0.9 mg/dL (0.2-1.0); Blood Urea Nitrogen 13 mg/dL (7-18); Calcium 8.5 mg/dL (8.5-10.1); Carbon Dioxide 29 mmol/L (21.0-32.0); Chloride 105 mmol/L (98-107); Creatinine Clearance Estimated 64 mL/min (50-200); Creatinine,Serum 0.92 mg/dL (0.70-1.30); Estimated Glomerular Filt Rate 79 ml/min (>60); GFR (African American) 96 ML/MIN (>60); Globulin 3.4 gm/dl (1.3-3.2); Glucose 83 mg/dL (74-106); Potassium 4.3 mmoL/L (3.5-5.1); Sodium 141 mmol/L (136-145); Total Protein,Serum 6.9 gm/dL (6.4-8.2)
== END 2018-04-03 16:55 | disposition home or self-care (01) ==
LOC: INF 14:40
PROVIDERS: Visit Provider Internal Medicine Adolescent Medicine
DX: E88.01 Alpha-1-antitrypsin deficiency (principal)
CPT/HCPCS: 80053; 82248; 85025; 96365; J0256

== ENCOUNTER 2018-04-10 12:31 | Outpatient (CLI) | payer MEDICARE, BC, SELFPAY ==
[2018-04-10] VITALS (7 sets, daily range): BP systolic 136–165; BP diastolic 69–92; PULSE 72–82; RESP 18–22; TEMP 36.5–36.7; O2SAT 93–94
== END 2018-04-10 15:00 | disposition home or self-care (01) ==
LOC: INF 12:31
PROVIDERS: Visit Provider Internal Medicine Adolescent Medicine
DX: E88.01 Alpha-1-antitrypsin deficiency (principal)
CPT/HCPCS: 96365; J0256

== ENCOUNTER 2018-04-17 13:00 | Outpatient (CLI) | payer MEDICARE, BC, SELFPAY ==
[2018-04-17 13:09] VITALS: BMI 24.6
[2018-04-17 13:50] VITALS: BP 165/82; PULSE 84; RESP 20; O2SAT 94
[2018-04-17 14:10] LABS: Ferritin 69 ng/mL (8-388)
[2018-04-17 14:20] VITALS: BP 147/75; PULSE 91; RESP 18
[2018-04-17 14:50] VITALS: BP 118/58; PULSE 82; RESP 18
[2018-04-17 15:20] VITALS: BP 108/55; PULSE 66; RESP 18
== END 2018-04-17 16:45 | disposition home or self-care (01) ==
LOC: INF 13:07
PROVIDERS: Visit Provider Internal Medicine Adolescent Medicine
DX: E88.01 Alpha-1-antitrypsin deficiency (principal); C67.9 Malignant neoplasm of bladder, unspecified
CPT/HCPCS: 82728; 96365; J0256

== ENCOUNTER 2018-04-24 12:30 | Outpatient (CLI) | payer MEDICARE, BC, SELFPAY ==
[2018-04-24 13:50] VITALS: BP 146/74; PULSE 78; RESP 18; TEMP 36.7; O2SAT 94
[2018-04-24 14:50] VITALS: BP 143/84; PULSE 81; RESP 18
[2018-04-24 15:40] VITALS: BP 145/72; PULSE 73; RESP 18
== END 2018-04-24 16:00 | disposition home or self-care (01) ==
LOC: INF 12:42
PROVIDERS: Visit Provider Internal Medicine Adolescent Medicine
DX: Z51.11 Encounter for antineoplastic chemotherapy (principal); E88.01 Alpha-1-antitrypsin deficiency; C67.9 Malignant neoplasm of bladder, unspecified
CPT/HCPCS: 96365; 96366; 99195; J0256

== ENCOUNTER 2018-05-01 13:22 | Outpatient (CLI) | payer MEDICARE, BC, SELFPAY ==
[2018-05-01 13:22] VITALS: BMI 24.6
[2018-05-01 14:30] VITALS: BP 132/75; PULSE 83; RESP 20; O2SAT 93
[2018-05-01 15:05] LABS: Ferritin 56 ng/mL (8-388)
[2018-05-01 15:30] VITALS: BP 125/70; PULSE 87; RESP 18
== END 2018-05-01 15:30 | disposition home or self-care (01) ==
LOC: INF 13:22
PROVIDERS: Visit Provider Internal Medicine Adolescent Medicine
DX: R79.89 Other specified abnormal findings of blood chemistry (principal); E88.01 Alpha-1-antitrypsin deficiency; C67.9 Malignant neoplasm of bladder, unspecified
CPT/HCPCS: 82728; 96365; J0256

== ENCOUNTER 2018-05-08 13:09 | Outpatient (CLI) | payer MEDICARE, BC, SELFPAY ==
[2018-05-08 14:00] VITALS: BP 156/74; PULSE 82; RESP 18; TEMP 36.8; O2SAT 98
[2018-05-08 15:15] VITALS: BP 140/82; PULSE 85; RESP 18; TEMP 36.8; O2SAT 98
== END 2018-05-08 15:21 | disposition home or self-care (01) ==
LOC: INF 13:09
PROVIDERS: Visit Provider Internal Medicine Adolescent Medicine
DX: E88.01 Alpha-1-antitrypsin deficiency (principal); C67.9 Malignant neoplasm of bladder, unspecified
CPT/HCPCS: 96365; J0256

== ENCOUNTER 2018-05-15 12:20 | Outpatient (CLI) | payer MEDICARE, BC, SELFPAY ==
[2018-05-15 13:00] VITALS: BP 165/99; PULSE 75; RESP 20; O2SAT 96
[2018-05-15 13:30] VITALS: BP 159/80; PULSE 74; RESP 20
[2018-05-15 14:00] VITALS: BP 133/78; PULSE 72; RESP 20
[2018-05-15 14:30] VITALS: BP 143/71; PULSE 75; RESP 20
== END 2018-05-15 14:55 | disposition home or self-care (01) ==
LOC: INF 12:30
PROVIDERS: Visit Provider Internal Medicine Adolescent Medicine
DX: E88.01 Alpha-1-antitrypsin deficiency (principal)
CPT/HCPCS: 96365; J0256

== ENCOUNTER 2018-05-22 12:35 | Outpatient (CLI) | payer MEDICARE, BC, SELFPAY ==
[2018-05-22 12:50] VITALS: BP 136/71; PULSE 80; RESP 18; TEMP 36.8; O2SAT 94
[2018-05-22 14:00] VITALS: BP 140/77; PULSE 76; RESP 20; O2SAT 93
== END 2018-05-22 14:00 | disposition home or self-care (01) ==
LOC: INF 12:57
PROVIDERS: PCP Internal Medicine Adolescent Medicine; Visit Provider Internal Medicine Adolescent Medicine
DX: E88.01 Alpha-1-antitrypsin deficiency (principal)
CPT/HCPCS: 96365; J0256

== ENCOUNTER 2018-05-29 12:14 | Outpatient (CLI) | payer MEDICARE, BC, SELFPAY ==
[2018-05-29 12:31] VITALS: BMI 24.6
[2018-05-29 13:50] VITALS: BP 158/77; PULSE 76; RESP 20; O2SAT 95
[2018-05-29 14:20] VITALS: BP 142/68; PULSE 71; RESP 20
[2018-05-29 14:32] LABS: Ferritin 117 ng/mL (8-388)
[2018-05-29 14:50] VITALS: BP 127/61; PULSE 68; RESP 18
[2018-05-29 15:15] VITALS: BP 122/72; PULSE 66; RESP 18
== END 2018-05-29 16:15 | disposition home or self-care (01) ==
LOC: INF 12:14
PROVIDERS: Visit Provider Internal Medicine Adolescent Medicine
DX: E88.01 Alpha-1-antitrypsin deficiency (principal); C67.9 Malignant neoplasm of bladder, unspecified; R79.89 Other specified abnormal findings of blood chemistry
CPT/HCPCS: 82728; 96365; J0256

== ENCOUNTER 2018-06-05 13:02 | Outpatient (CLI) | payer MEDICARE, BC, SELFPAY ==
[2018-06-05 14:35] VITALS: BP 131/72; PULSE 81; RESP 20; O2SAT 95
[2018-06-05 15:15] VITALS: BP 156/81; PULSE 74; RESP 18; O2SAT 95
[2018-06-05 16:20] VITALS: BP 152/68; PULSE 68; RESP 20; TEMP 36.9; O2SAT 95
== END 2018-06-05 16:35 | disposition home or self-care (01) ==
LOC: INF 13:02
PROVIDERS: Visit Provider Internal Medicine Adolescent Medicine
DX: E88.01 Alpha-1-antitrypsin deficiency (principal)
CPT/HCPCS: 96365; 99195; J0256

== ENCOUNTER 2018-06-12 12:05 | Outpatient (CLI) | payer MEDICARE, BC, SELFPAY ==
[2018-06-12 12:11] VITALS: BMI 24.6
[2018-06-12 12:30] VITALS: BP 197/101; PULSE 76; RESP 20; O2SAT 92
[2018-06-12 13:05] LABS: Ferritin 75 ng/mL (8-388)
[2018-06-12 13:15] VITALS: BP 159/86; PULSE 82; RESP 20
[2018-06-12 14:00] VITALS: BP 132/77; PULSE 80; RESP 20
== END 2018-06-12 14:45 | disposition home or self-care (01) ==
LOC: INF 12:10
PROVIDERS: Visit Provider Internal Medicine Adolescent Medicine
DX: R79.89 Other specified abnormal findings of blood chemistry (principal); E88.01 Alpha-1-antitrypsin deficiency
CPT/HCPCS: 82728; 96365; J0256

== ENCOUNTER 2018-06-19 13:10 | Outpatient (CLI) | payer MEDICARE, BC, SELFPAY ==
[2018-06-19 14:00] VITALS: BP 187/91; PULSE 84; RESP 20; O2SAT 95
[2018-06-19 14:30] VITALS: BP 152/76; PULSE 81; RESP 18
[2018-06-19 15:00] VITALS: BP 140/72; PULSE 86; RESP 18
[2018-06-19 15:25] VITALS: BP 144/79; PULSE 84; RESP 20
== END 2018-06-19 15:45 | disposition home or self-care (01) ==
LOC: INF 13:18
PROVIDERS: Visit Provider Internal Medicine Adolescent Medicine
DX: E88.01 Alpha-1-antitrypsin deficiency (principal)
CPT/HCPCS: 96365; J0256

== ENCOUNTER 2018-06-26 12:53 | Outpatient (CLI) | payer MEDICARE, BC, SELFPAY ==
[2018-06-26 13:00] VITALS: BP 123/84; PULSE 84; RESP 22; TEMP 36.6; O2SAT 95
[2018-06-26 14:15] VITALS: BP 134/80; PULSE 80; RESP 22
== END 2018-06-26 14:30 | disposition home or self-care (01) ==
LOC: INF 12:54
PROVIDERS: Visit Provider Internal Medicine Adolescent Medicine
DX: E88.01 Alpha-1-antitrypsin deficiency (principal)
CPT/HCPCS: 96365; J0256

== ENCOUNTER 2018-07-03 13:10 | Outpatient (CLI) | payer MEDICARE, BC, SELFPAY ==
[2018-07-03 13:24] VITALS: BMI 24.6
[2018-07-03 14:05] VITALS: BP 151/80; PULSE 77; RESP 20; O2SAT 93
[2018-07-03 14:32] LABS: Ferritin 59 ng/mL (8-388)
[2018-07-03 14:35] VITALS: BP 123/64; PULSE 91; RESP 18
[2018-07-03 15:05] VITALS: BP 136/69; PULSE 77; RESP 18
[2018-07-03 15:25] VITALS: BP 142/75; PULSE 83; RESP 18
== END 2018-07-03 16:00 | disposition home or self-care (01) ==
LOC: INF 13:19
PROVIDERS: Visit Provider Internal Medicine Adolescent Medicine
DX: R79.89 Other specified abnormal findings of blood chemistry (principal); E88.01 Alpha-1-antitrypsin deficiency
CPT/HCPCS: 82728; 96365; J0256

== ENCOUNTER 2018-07-10 13:00 | Outpatient (CLI) | payer MEDICARE, BC, SELFPAY ==
[2018-07-10 14:22] VITALS: BP 137/78; PULSE 68; RESP 20; TEMP 36.9; O2SAT 95
[2018-07-10 15:45] VITALS: BP 136/74; PULSE 68; RESP 20; TEMP 36.9; O2SAT 95
== END 2018-07-10 16:00 | disposition home or self-care (01) ==
LOC: INF 13:22
PROVIDERS: Visit Provider Internal Medicine Adolescent Medicine
DX: E88.01 Alpha-1-antitrypsin deficiency (principal)
CPT/HCPCS: 96365; J0256

== ENCOUNTER 2018-07-17 10:25 | Outpatient (CLI) | payer MEDICARE, BC, SELFPAY ==
[2018-07-17 10:25] VITALS: BMI 24.6
[2018-07-17 10:49] LABS: Basophils % 0.3 % (0.1-2.0); Eosinophils # 0.2 K/mm3 (0.0-0.4); Eosinophils % 3.1 % (0.1-12.0); Hematocrit 40.4 % (42.0-52.0); Hemoglobin 12.6 g/dL (14.1-18.0); Lymphocytes # 1.7 K/mm3 (0.7-4.5); Lymphocytes % 25.8 % (10-50); Mean Corpuscular HGB Conc 31.3 g/dL (31.8-35.4); Mean Corpuscular Hemoglobin 20.6 pg (27.0-31.2); Mean Corpuscular Volume 65.8 fl (80-94); Monocytes # 0.5 K/mm3 (0.1-1.0); Monocytes % 7.5 % (1.7-9.3); Neutrophils # 4.2 K/mm3 (1.8-7.8); Neutrophils % 63.2 % (37.0-80.0); Platelet Count 172 K/mm3 (142-424); Red Blood Count 6.13 M/mm3 (4.60-6.20); Red Cell Distribution Width 16.5 % (11.5-17.5); White Blood Count 6.6 K/mm3 (4.8-10.8)
[2018-07-17 11:24] LABS: Alanine Aminotransferase 27 U/L (12-78); Albumin Level 3.7 gm/dL (3.4-5.0); Alkaline Phosphatase 111 U/L (46-116); Anion Gap 13.1 mEq/L (5-15); Aspartate Amino Transferase 20 U/L (15-37); Bilirubin,Direct 0.2 mg/dL (0.0-0.2); Bilirubin,Indirect 0.6 mg/dL (0.0-0.9); Bilirubin,Total 0.8 mg/dL (0.2-1.0); Blood Urea Nitrogen 18 mg/dL (7-18); Calcium 8.7 mg/dL (8.5-10.1); Carbon Dioxide 28 mmol/L (21.0-32.0); Chloride 103 mmol/L (98-107); Creatinine Clearance Estimated 64 mL/min (50-200); Creatinine,Serum 0.88 mg/dL (0.70-1.30); Estimated Glomerular Filt Rate 84 ml/min (>60); GFR (African American) 101 ML/MIN (>60); Globulin 3.6 gm/dl (1.3-3.2); Glucose 110 mg/dL (74-106); Potassium 4.1 mmoL/L (3.5-5.1); Sodium 140 mmol/L (136-145); Total Protein,Serum 7.3 gm/dL (6.4-8.2)
[2018-07-17 11:27] LABS: Ferritin 69 ng/mL (8-388)
[2018-07-17 11:37] VITALS: BP 148/69; PULSE 69; RESP 18; TEMP 36.6; O2SAT 94
[2018-07-17 11:41] VITALS: BMI 24.6
[2018-07-17 12:08] VITALS: BP 145/70; PULSE 70; RESP 18; TEMP 36.4; O2SAT 91
== END 2018-07-17 12:12 | disposition home or self-care (01) ==
LOC: INF 10:25
PROVIDERS: Visit Provider Internal Medicine Adolescent Medicine
DX: E88.01 Alpha-1-antitrypsin deficiency (principal); R79.89 Other specified abnormal findings of blood chemistry
CPT/HCPCS: 80053; 80076; 82728; 85025; 96365; J0256

== ENCOUNTER → 2018-07-27 12:15 | Outpatient (CLI) | payer MEDICARE, BC, SELFPAY ==
[2018-07-27 14:00] VITALS: BP 128/76; PULSE 96; RESP 20; TEMP 36.9; O2SAT 95
[2018-07-27 15:00] VITALS: BP 132/74; PULSE 68; RESP 20; TEMP 36.9; O2SAT 98
[2018-07-27 15:45] VITALS: BP 132/74; PULSE 68; RESP 20; TEMP 36.9; O2SAT 95
== END ==
PROVIDERS: Visit Provider Internal Medicine Adolescent Medicine
DX: E88.01 Alpha-1-antitrypsin deficiency (principal)
CPT/HCPCS: 96365; 99195; J0256

== ENCOUNTER 2018-07-31 12:17 | Outpatient (CLI) | payer MEDICARE, BC, SELFPAY ==
[2018-07-31 12:17] VITALS: BMI 24.7
[2018-07-31 12:20] VITALS: BP 122/64; PULSE 68; RESP 20; TEMP 36.9; O2SAT 95
[2018-07-31 13:01] LABS: Ferritin 56 ng/mL (8-388)
[2018-07-31 15:30] VITALS: BP 134/74; PULSE 68; RESP 20; TEMP 36.9
== END 2018-07-31 15:40 | disposition home or self-care (01) ==
LOC: INF 12:17
PROVIDERS: Visit Provider Internal Medicine Adolescent Medicine
DX: R79.89 Other specified abnormal findings of blood chemistry (principal); E88.01 Alpha-1-antitrypsin deficiency
CPT/HCPCS: 82728; 96365; J0256

== ENCOUNTER 2018-08-07 10:00 | Outpatient (CLI) | payer MEDICARE, BC, SELFPAY ==
[2018-08-07 10:48] VITALS: BP 147/78; PULSE 74; RESP 20; O2SAT 94
[2018-08-07 11:00] VITALS: BP 147/80; PULSE 75; RESP 18
[2018-08-07 11:30] VITALS: BP 162/92; PULSE 82; RESP 20
[2018-08-07 12:00] VITALS: BP 143/78; PULSE 78; RESP 20
[2018-08-07 12:35] VITALS: BP 148/75; PULSE 80; RESP 20
== END 2018-08-07 12:35 | disposition home or self-care (01) ==
LOC: INF 10:16
PROVIDERS: Visit Provider Internal Medicine Adolescent Medicine
DX: E88.01 Alpha-1-antitrypsin deficiency (principal)
CPT/HCPCS: 96365; J0256

== ENCOUNTER 2018-08-14 14:10 | Outpatient (CLI) | payer MEDICARE, BC, SELFPAY ==
[2018-08-14 14:35] VITALS: BP 144/82; PULSE 75; RESP 20; O2SAT 93
[2018-08-14 15:05] VITALS: BP 152/83; PULSE 68; RESP 20
[2018-08-14 15:35] VITALS: BP 142/86; PULSE 78; RESP 20
[2018-08-14 16:05] VITALS: BP 142/74; PULSE 75; RESP 20
== END 2018-08-14 16:35 | disposition home or self-care (01) ==
LOC: INF 14:13
PROVIDERS: Visit Provider Internal Medicine Adolescent Medicine
DX: E88.01 Alpha-1-antitrypsin deficiency (principal)
CPT/HCPCS: 96365; J0256

== ENCOUNTER 2018-08-21 09:51 | Outpatient (CLI) | payer MEDICARE, BC, SELFPAY ==
[2018-08-21 10:50] VITALS: BP 159/71; PULSE 68; RESP 20; TEMP 36.9; O2SAT 95
[2018-08-21 11:50] VITALS: BP 139/71; PULSE 87; RESP 20; TEMP 36.9; O2SAT 95
[2018-08-21 12:35] VITALS: BP 135/74; PULSE 68; RESP 20; TEMP 36.9; O2SAT 95
== END 2018-08-21 12:40 | disposition home or self-care (01) ==
LOC: INF 09:51
PROVIDERS: Visit Provider Internal Medicine Adolescent Medicine
DX: E88.01 Alpha-1-antitrypsin deficiency (principal)
CPT/HCPCS: 96365; 96366; J0256

== ENCOUNTER 2018-08-28 11:00 | Outpatient (CLI) | payer MEDICARE, BC, SELFPAY ==
[2018-08-28 11:14] VITALS: BMI 24.9
[2018-08-28 12:14] LABS: Ferritin 88 ng/mL (8-388)
[2018-08-28 12:15] VITALS: BP 153/74; PULSE 82; RESP 20; O2SAT 95
[2018-08-28 13:25] VITALS: BP 135/67; PULSE 89; RESP 20
== END 2018-08-28 13:45 | disposition home or self-care (01) ==
LOC: INF 11:12
PROVIDERS: Visit Provider Internal Medicine Adolescent Medicine
DX: E88.01 Alpha-1-antitrypsin deficiency (principal); R79.89 Other specified abnormal findings of blood chemistry
CPT/HCPCS: 82728; 96365; J0256

== ENCOUNTER 2018-09-04 12:30 | Outpatient (CLI) | payer MEDICARE, BC, SELFPAY ==
[2018-09-04 13:25] VITALS: BP 145/88; PULSE 68; RESP 20; TEMP 36.9; O2SAT 95
[2018-09-04 14:00] VITALS: BP 152/78; PULSE 68; RESP 20; TEMP 36.9; O2SAT 95
[2018-09-04 15:00] VITALS: BP 115/68; PULSE 78; RESP 20; TEMP 36.9; O2SAT 95
== END 2018-09-04 15:00 | disposition home or self-care (01) ==
LOC: INF 12:43
PROVIDERS: Visit Provider Internal Medicine Adolescent Medicine
DX: E88.01 Alpha-1-antitrypsin deficiency (principal)
CPT/HCPCS: 96365; J0256

== ENCOUNTER 2018-09-11 13:00 | Outpatient (CLI) | payer MEDICARE, BC, SELFPAY ==
[2018-09-11 13:59] VITALS: BP 155/78; PULSE 69; RESP 22; TEMP 36.3; O2SAT 98
[2018-09-11 14:42] VITALS: BP 136/84; PULSE 80; RESP 22; O2SAT 98
[2018-09-11 15:00] VITALS: BP 159/72; PULSE 86; RESP 20
[2018-09-11 15:30] VITALS: BP 119/59; PULSE 78; RESP 20
== END 2018-09-11 16:35 | disposition home or self-care (01) ==
LOC: INF 14:06
PROVIDERS: Visit Provider Internal Medicine Adolescent Medicine
DX: E88.01 Alpha-1-antitrypsin deficiency (principal)
CPT/HCPCS: 96365; J0256

== ENCOUNTER 2018-09-18 12:53 | Outpatient (CLI) | payer MEDICARE, BC, SELFPAY ==
[2018-09-18 14:00] VITALS: BP 124/79; PULSE 84; RESP 20; O2SAT 97
[2018-09-18 15:00] VITALS: BP 135/77; PULSE 76; RESP 18; O2SAT 93
== END 2018-09-18 16:00 | disposition home or self-care (01) ==
LOC: INF 12:53
PROVIDERS: Visit Provider Internal Medicine Adolescent Medicine
DX: E88.01 Alpha-1-antitrypsin deficiency (principal)
CPT/HCPCS: 96365; J0256

== ENCOUNTER 2018-09-25 11:50 | Outpatient (CLI) | payer MEDICARE, BC, SELFPAY ==
[2018-09-25 11:57] VITALS: BMI 24.9
[2018-09-25 12:18] LABS: Basophils % 0.3 % (0.1-2.0); Eosinophils # 0.3 K/mm3 (0.0-0.4); Eosinophils % 3.5 % (0.1-12.0); Lymphocytes # 1.7 K/mm3 (0.7-4.5); Lymphocytes % 23.5 % (10-50); Mean Corpuscular HGB Conc 30.6 g/dL (31.8-35.4); Mean Corpuscular Hemoglobin 20.3 pg (27.0-31.2); Mean Corpuscular Volume 66.3 fl (80-94); Mean Platelet Volume 7.8 fl (7.4-10.4); Monocytes # 0.5 K/mm3 (0.1-1.0); Monocytes % 6.7 % (1.7-9.3); Neutrophils # 4.7 K/mm3 (1.8-7.8); Neutrophils % 65.9 % (37.0-80.0); Platelet Count 208 K/mm3 (142-424); White Blood Count 7.2 K/mm3 (4.8-10.8)
[2018-09-25 12:25] VITALS: BP 125/74; PULSE 85; RESP 18; O2SAT 94
[2018-09-25 12:34] LABS: Hemoglobin 12.3 g/dL (14.1-18.0); Red Blood Count 6.03 M/mm3 (4.60-6.20)
[2018-09-25 12:47] LABS: Alanine Aminotransferase 35 U/L (12-78); Albumin Level 3.2 gm/dL (3.4-5.0); Alkaline Phosphatase 132 U/L (46-116); Aspartate Amino Transferase 25 U/L (15-37); Bilirubin,Direct 0.2 mg/dL (0.0-0.2); Bilirubin,Indirect 0.7 mg/dL (0.0-0.9); Bilirubin,Total 0.9 mg/dL (0.2-1.0); Blood Urea Nitrogen 15 mg/dL (7-18); Calcium 8.5 mg/dL (8.5-10.1); Carbon Dioxide 27 mmol/L (21.0-32.0); Chloride 105 mmol/L (98-107); Creatinine Clearance Estimated 65 mL/min (50-200); Creatinine,Serum 0.77 mg/dL (0.70-1.30); Estimated Glomerular Filt Rate 97 ml/min (>60); Ferritin 96 ng/mL (8-388); GFR (African American) 118 ML/MIN (>60); Globulin 3.3 gm/dl (1.3-3.2); Glucose 91 mg/dL (74-106); Sodium 140 mmol/L (136-145); Total Protein,Serum 6.5 gm/dL (6.4-8.2)
[2018-09-25 14:40] VITALS: BP 141/76; PULSE 103; RESP 22; O2SAT 93
== END 2018-09-25 14:40 | disposition home or self-care (01) ==
LOC: INF 11:53
PROVIDERS: Visit Provider Internal Medicine Adolescent Medicine
DX: E88.01 Alpha-1-antitrypsin deficiency (principal); R79.89 Other specified abnormal findings of blood chemistry
CPT/HCPCS: 80053; 80076; 82728; 85025; 96365; J0256

== ENCOUNTER 2018-10-02 13:15 | Outpatient (CLI) | payer MEDICARE, BC, SELFPAY ==
[2018-10-02 14:02] VITALS: BP 139/67; PULSE 67; RESP 22; O2SAT 94
[2018-10-02 15:20] VITALS: BP 140/62; PULSE 82; RESP 20; O2SAT 93
== END 2018-10-02 15:20 | disposition home or self-care (01) ==
LOC: INF 13:17
PROVIDERS: Visit Provider Internal Medicine Adolescent Medicine
DX: E88.01 Alpha-1-antitrypsin deficiency (principal)
CPT/HCPCS: 96365; 99195; J0256

== ENCOUNTER 2018-10-09 15:09 | Outpatient (CLI) | payer MEDICARE, BC, SELFPAY ==
[2018-10-09 15:34] VITALS: BP 131/82; PULSE 75; RESP 18; TEMP 36.6; O2SAT 93
[2018-10-09 16:00] VITALS: BP 136/78; PULSE 78; RESP 20; TEMP 36.6; O2SAT 94
[2018-10-09 16:31] VITALS: BP 124/76; PULSE 80; RESP 20; TEMP 36.6; O2SAT 93
[2018-10-09 16:42] VITALS: BP 135/69; PULSE 74; RESP 22; TEMP 36.6; O2SAT 94
== END 2018-10-09 16:47 | disposition home or self-care (01) ==
LOC: INF 15:09
PROVIDERS: Visit Provider Internal Medicine Adolescent Medicine
DX: E88.01 Alpha-1-antitrypsin deficiency (principal)
CPT/HCPCS: 96365; J0256

== ENCOUNTER 2018-10-16 12:05 | Outpatient (CLI) | payer MEDICARE, BC, SELFPAY ==
[2018-10-16 12:45] VITALS: BP 157/79; PULSE 67; RESP 20; O2SAT 97
[2018-10-16 13:15] VITALS: BP 183/102; PULSE 84; RESP 20
[2018-10-16 13:45] VITALS: BP 167/85; PULSE 80; RESP 20
[2018-10-16 14:00] VITALS: BP 127/63; PULSE 86; RESP 20
== END 2018-10-16 14:15 | disposition home or self-care (01) ==
LOC: INF 12:15
PROVIDERS: Visit Provider Internal Medicine Adolescent Medicine
DX: E88.01 Alpha-1-antitrypsin deficiency (principal)
CPT/HCPCS: 96365; J0256

== ENCOUNTER 2018-10-23 12:00 | Outpatient (CLI) | payer MEDICARE, BC, SELFPAY ==
[2018-10-23 12:30] VITALS: BP 146/83; PULSE 71; RESP 20; TEMP 36.3; O2SAT 95
[2018-10-23 13:15] VITALS: BP 170/88; PULSE 75; RESP 20
[2018-10-23 14:00] VITALS: BP 161/83; PULSE 73; RESP 20
== END 2018-10-23 14:30 | disposition home or self-care (01) ==
LOC: INF 12:00
PROVIDERS: Visit Provider Internal Medicine Adolescent Medicine
DX: E88.01 Alpha-1-antitrypsin deficiency (principal)
CPT/HCPCS: 96365; J0256

== ENCOUNTER 2018-10-30 09:35 | Outpatient (CLI) | payer MEDICARE, BC, SELFPAY ==
[2018-10-30 09:40] VITALS: BMI 24.9
[2018-10-30 09:55] VITALS: BP 162/94; PULSE 72; RESP 20; O2SAT 94
[2018-10-30 10:29] LABS: Ferritin 83 ng/mL (8-388)
[2018-10-30 10:30] VITALS: BP 135/72; PULSE 79; RESP 20
[2018-10-30 11:00] VITALS: BP 144/80; PULSE 78; RESP 20; O2SAT 94
== END 2018-10-30 11:40 | disposition home or self-care (01) ==
LOC: INF 09:39
PROVIDERS: Visit Provider Internal Medicine Adolescent Medicine
DX: E88.01 Alpha-1-antitrypsin deficiency (principal); R79.89 Other specified abnormal findings of blood chemistry
CPT/HCPCS: 82728; 96365; J0256

== ENCOUNTER 2018-11-06 11:52 | Outpatient (CLI) | payer MEDICARE, BC, SELFPAY ==
[2018-11-06 12:30] VITALS: BP 125/76; PULSE 84; RESP 20
== END 2018-11-06 14:20 | disposition home or self-care (01) ==
LOC: INF 11:53
PROVIDERS: Visit Provider Internal Medicine Adolescent Medicine
DX: E88.01 Alpha-1-antitrypsin deficiency (principal)
CPT/HCPCS: 96365; 99195; J0256

== ENCOUNTER 2018-11-13 13:15 | Outpatient (CLI) | payer MEDICARE, BC, SELFPAY ==
[2018-11-13 13:24] VITALS: BMI 24.9
[2018-11-13 13:45] VITALS: BP 123/60; PULSE 82; RESP 20; O2SAT 100
[2018-11-13 14:40] LABS: Ferritin 60 ng/mL (8-388)
[2018-11-13 15:00] VITALS: BP 112/50; PULSE 72; RESP 20
== END 2018-11-13 15:15 | disposition home or self-care (01) ==
LOC: INF 13:23
PROVIDERS: Visit Provider Internal Medicine Adolescent Medicine
DX: E88.01 Alpha-1-antitrypsin deficiency (principal); R79.89 Other specified abnormal findings of blood chemistry
CPT/HCPCS: 82728; 96365; J0256

== ENCOUNTER 2018-11-20 11:25 | Outpatient (CLI) | payer MEDICARE, BC, SELFPAY ==
[2018-11-20 12:05] VITALS: BP 139/74; PULSE 76; RESP 20; O2SAT 91
[2018-11-20 12:35] VITALS: BP 145/81; PULSE 74; RESP 20
[2018-11-20 13:05] VITALS: BP 141/87; PULSE 83; RESP 20
[2018-11-20 13:20] VITALS: BP 124/68; PULSE 84; RESP 20
== END 2018-11-20 13:45 | disposition home or self-care (01) ==
LOC: INF 11:37
PROVIDERS: Visit Provider Internal Medicine Adolescent Medicine
DX: E88.01 Alpha-1-antitrypsin deficiency (principal)
CPT/HCPCS: 96365; J0256

== ENCOUNTER 2018-11-27 13:09 | Outpatient (CLI) | payer MEDICARE, BC, SELFPAY ==
[2018-11-27 13:25] VITALS: BP 154/87; PULSE 75; RESP 20; O2SAT 94
[2018-11-27 15:45] VITALS: BP 129/68; PULSE 70; RESP 20; O2SAT 93
== END 2018-11-27 15:45 | disposition home or self-care (01) ==
LOC: INF 13:09
PROVIDERS: Visit Provider Nurse Practitioner Family
DX: E88.01 Alpha-1-antitrypsin deficiency (principal)
CPT/HCPCS: 96365; J0256

== ENCOUNTER 2018-12-04 12:21 | Outpatient (CLI) | payer MEDICARE, BC, SELFPAY ==
[2018-12-04 13:19] VITALS: BMI 23.9
[2018-12-04 13:25] VITALS: BP 131/66; PULSE 81; RESP 18; TEMP 36.7; O2SAT 93
[2018-12-04 13:55] VITALS: BP 129/76; PULSE 78; RESP 22; TEMP 36.6; O2SAT 94
[2018-12-04 13:59] LABS: Ferritin 53 ng/mL (8-388)
[2018-12-04 14:25] VITALS: BP 133/74; PULSE 76; RESP 22; TEMP 36.5; O2SAT 93
[2018-12-04 15:05] VITALS: BP 138/79; PULSE 75; RESP 20; TEMP 36.6; O2SAT 93
== END 2018-12-04 15:05 | disposition home or self-care (01) ==
LOC: INF 12:21
PROVIDERS: Visit Provider Nurse Practitioner Family
DX: R79.89 Other specified abnormal findings of blood chemistry (principal); E88.01 Alpha-1-antitrypsin deficiency
CPT/HCPCS: 82728; 96365; J0256

== ENCOUNTER 2018-12-11 13:08 | Outpatient (CLI) | payer MEDICARE, BC, SELFPAY ==
[2018-12-11 13:25] VITALS: BP 140/70; PULSE 80; RESP 20; O2SAT 92
[2018-12-11 14:10] VITALS: BP 162/93; PULSE 78; RESP 18
[2018-12-11 14:55] VITALS: BP 136/73; PULSE 78; RESP 18
== END 2018-12-11 15:15 | disposition home or self-care (01) ==
LOC: INF 13:08
PROVIDERS: Visit Provider Internal Medicine Adolescent Medicine
DX: E88.01 Alpha-1-antitrypsin deficiency (principal)
CPT/HCPCS: 96365; J0256

== ENCOUNTER 2018-12-18 09:58 | Outpatient (CLI) | payer MEDICARE, BC, SELFPAY ==
[2018-12-18 10:35] VITALS: BP 125/70; PULSE 69; RESP 20
[2018-12-18 12:10] VITALS: BP 132/76; PULSE 73; RESP 20
== END 2018-12-18 12:10 | disposition home or self-care (01) ==
LOC: INF 09:58
PROVIDERS: Visit Provider Internal Medicine Adolescent Medicine
DX: E88.01 Alpha-1-antitrypsin deficiency (principal)
CPT/HCPCS: 96365; J0256

== ENCOUNTER 2018-12-25 10:25 | Outpatient (CLI) | payer MEDICARE, BC, SELFPAY ==
[2018-12-25 11:00] VITALS: BP 137/79; PULSE 75; RESP 20; TEMP 36.4
[2018-12-25 12:00] VITALS: BP 158/79; PULSE 72; RESP 18
[2018-12-25 12:45] VITALS: BP 166/76; PULSE 80; RESP 20
== END 2018-12-25 13:15 | disposition home or self-care (01) ==
LOC: INF 10:38
PROVIDERS: Visit Provider Internal Medicine Adolescent Medicine
DX: E88.01 Alpha-1-antitrypsin deficiency (principal)
CPT/HCPCS: 96365; 96366; J0256

== ENCOUNTER 2019-01-01 14:15 | Outpatient (CLI) | payer MEDICARE, BC, SELFPAY ==
[2019-01-01 14:28] VITALS: BMI 24.7
[2019-01-01 14:49] LABS: Basophils # 0.1 K/mm3 (0-0.2); Basophils % 0.6 % (0.1-2.0); Eosinophils # 0.3 K/mm3 (0.0-0.4); Eosinophils % 3.5 % (0.1-12.0); Hematocrit 42.7 % (42.0-52.0); Hemoglobin 12.7 g/dL (14.1-18.0); Lymphocytes # 2.2 K/mm3 (0.7-4.5); Lymphocytes % 25.7 % (10-50); Mean Corpuscular HGB Conc 29.8 g/dL (31.8-35.4); Mean Corpuscular Volume 67.1 fl (80-94); Mean Platelet Volume 7.6 fl (7.4-10.4); Monocytes # 0.8 K/mm3 (0.1-1.0); Monocytes % 8.8 % (1.7-9.3); Neutrophils # 5.3 K/mm3 (1.8-7.8); Neutrophils % 61.4 % (37.0-80.0); Platelet Count 212 K/mm3 (142-424); Red Blood Count 6.36 M/mm3 (4.60-6.20); Red Cell Distribution Width 16.1 % (11.5-17.5); White Blood Count 8.6 K/mm3 (4.8-10.8)
[2019-01-01 14:50] VITALS: BP 137/78; PULSE 83; RESP 20; O2SAT 95
[2019-01-01 15:25] VITALS: BP 130/82; PULSE 68; RESP 18
[2019-01-01 16:00] VITALS: BP 160/80; PULSE 76; RESP 20
[2019-01-01 18:21] LABS: Alanine Aminotransferase 24 U/L (12-78); Albumin Level 3.7 gm/dL (3.4-5.0); Albumin/Globulin Ratio 1.1 (1.1-1.8); Alkaline Phosphatase 121 U/L (46-116); Anion Gap 14.8 mEq/L (5-15); Aspartate Amino Transferase 23 U/L (15-37); Bilirubin,Direct 0.2 mg/dL (0.0-0.2); Bilirubin,Indirect 0.7 mg/dL (0.0-0.9); Bilirubin,Total 0.9 mg/dL (0.2-1.0); Blood Urea Nitrogen 15 mg/dL (7-18); Calcium 8.8 mg/dL (8.5-10.1); Carbon Dioxide 25 mmol/L (21.0-32.0); Chloride 105 mmol/L (98-107); Creatinine Clearance Estimated 64 mL/min (50-200); Creatinine,Serum 0.73 mg/dL (0.70-1.30); Estimated Glomerular Filt Rate 103 ml/min (>60); Ferritin 63 ng/mL (8-388); GFR (African American) 125 ML/MIN (>60); Globulin 3.5 gm/dl (1.3-3.2); Glucose 92 mg/dL (74-106); Potassium 3.8 mmoL/L (3.5-5.1); Sodium 141 mmol/L (136-145); Total Protein,Serum 7.2 gm/dL (6.4-8.2)
== END 2019-01-01 16:15 | disposition home or self-care (01) ==
LOC: INF 14:26
PROVIDERS: Visit Provider Internal Medicine Adolescent Medicine
DX: R79.89 Other specified abnormal findings of blood chemistry (principal); E88.01 Alpha-1-antitrypsin deficiency
CPT/HCPCS: 80053; 80076; 82728; 85025; 96365; J0256

== ENCOUNTER 2019-01-08 13:30 | Outpatient (CLI) | payer MEDICARE, BC, SELFPAY ==
[2019-01-08 14:05] VITALS: BP 130/78; PULSE 75; RESP 20; O2SAT 92
[2019-01-08 15:45] VITALS: BP 149/84; PULSE 77; RESP 20; O2SAT 93
== END 2019-01-08 15:45 | disposition home or self-care (01) ==
LOC: INF 13:37
PROVIDERS: Visit Provider Internal Medicine Adolescent Medicine
DX: E88.01 Alpha-1-antitrypsin deficiency (principal)
CPT/HCPCS: 96365; J0256

== ENCOUNTER 2019-01-15 10:17 | Outpatient (CLI) | payer MEDICARE, BC, SELFPAY ==
[2019-01-15 10:40] VITALS: BP 134/70; PULSE 73; RESP 20; O2SAT 94
[2019-01-15 11:10] VITALS: BP 155/83; PULSE 72; RESP 20
[2019-01-15 11:40] VITALS: BP 147/72; PULSE 70; RESP 18
== END 2019-01-15 12:05 | disposition home or self-care (01) ==
LOC: INF 10:17
PROVIDERS: Visit Provider Nurse Practitioner Family
DX: E88.01 Alpha-1-antitrypsin deficiency (principal)
CPT/HCPCS: 96365; J0256

== ENCOUNTER 2019-01-22 12:07 | Outpatient (CLI) | payer MEDICARE, BC, SELFPAY ==
[2019-01-22 12:26] VITALS: BMI 24.7
[2019-01-22 12:57] VITALS: BP 150/78; PULSE 65; RESP 22; TEMP 36.5; O2SAT 96
[2019-01-22 13:08] LABS: Ferritin 77 ng/mL (8-388)
[2019-01-22 13:15] VITALS: BP 142/74; PULSE 69; RESP 22; TEMP 36.6; O2SAT 95
[2019-01-22 13:45] VITALS: BP 135/79; PULSE 71; RESP 20; TEMP 36.6; O2SAT 94
[2019-01-22 14:10] VITALS: BP 140/80; PULSE 74; RESP 20; TEMP 36.6; O2SAT 94
== END 2019-01-22 14:10 | disposition home or self-care (01) ==
LOC: INF 12:07
PROVIDERS: Visit Provider Internal Medicine Adolescent Medicine
DX: E88.09 Other disorders of plasma-protein metabolism, not elsewhere classified (principal); R79.89 Other specified abnormal findings of blood chemistry
CPT/HCPCS: 82728; 96365; J0256

== ENCOUNTER 2019-01-29 09:58 | Outpatient (CLI) | payer MEDICARE, BC, SELFPAY ==
[2019-01-29 11:10] VITALS: BP 138/88; PULSE 68; RESP 20; TEMP 36.9; O2SAT 95
[2019-01-29 11:40] VITALS: BP 134/80; PULSE 68; RESP 20; TEMP 36.9; O2SAT 95
[2019-01-29 12:15] VITALS: BP 136/74; PULSE 68; RESP 20; TEMP 36.9; O2SAT 98
== END 2019-01-29 12:45 | disposition home or self-care (01) ==
LOC: INF 09:58
PROVIDERS: Visit Provider Internal Medicine Adolescent Medicine
DX: E88.01 Alpha-1-antitrypsin deficiency (principal)
CPT/HCPCS: 96365; 99195; J0256

== ENCOUNTER 2019-02-05 13:08 | Outpatient (CLI) | payer MEDICARE, BC, SELFPAY ==
[2019-02-05 13:12] VITALS: BMI 24.7
[2019-02-05 13:30] VITALS: BP 151/76; PULSE 87; RESP 20; O2SAT 100
[2019-02-05 13:58] LABS: Ferritin 81 ng/mL (8-388)
[2019-02-05 14:00] VITALS: BP 150/79; PULSE 86; RESP 20
[2019-02-05 14:30] VITALS: BP 138/71; PULSE 81; RESP 20
[2019-02-05 14:45] VITALS: BP 148/80; PULSE 74; RESP 20
== END 2019-02-05 15:25 | disposition home or self-care (01) ==
LOC: INF 13:08
PROVIDERS: Visit Provider Nurse Practitioner Family
DX: R79.89 Other specified abnormal findings of blood chemistry (principal); E88.01 Alpha-1-antitrypsin deficiency
CPT/HCPCS: 82728; 96365; J0256

== ENCOUNTER 2019-02-12 12:45 | Outpatient (CLI) | payer MEDICARE, BC, SELFPAY ==
[2019-02-12 13:07] VITALS: BMI 24.7
[2019-02-12 13:45] VITALS: BP 140/77; PULSE 91; RESP 20; O2SAT 92
[2019-02-12 13:51] LABS: Ferritin 108 ng/mL (8-388)
[2019-02-12 14:30] VITALS: BP 142/80; PULSE 94; RESP 20
== END 2019-02-12 15:30 | disposition home or self-care (01) ==
LOC: INF 13:03
PROVIDERS: Visit Provider Internal Medicine Adolescent Medicine
DX: E88.01 Alpha-1-antitrypsin deficiency (principal); R79.89 Other specified abnormal findings of blood chemistry
CPT/HCPCS: 82728; 96365; J0256

== ENCOUNTER 2019-02-17 14:15 | Outpatient (CLI) | payer MEDICARE, BC, SELFPAY ==
[2019-02-17 14:50] VITALS: BP 126/63; PULSE 92; RESP 20; O2SAT 92
[2019-02-17 15:25] VITALS: BP 112/59; PULSE 76; RESP 20
[2019-02-17 16:00] VITALS: BP 135/83; PULSE 81; RESP 20
== END 2019-02-17 16:35 | disposition home or self-care (01) ==
LOC: INF 14:19
PROVIDERS: Visit Provider Nurse Practitioner Family
DX: E88.01 Alpha-1-antitrypsin deficiency (principal)
CPT/HCPCS: 96365; 99195; J0256

== ENCOUNTER 2019-02-26 13:44 | Outpatient (CLI) | payer MEDICARE, BC, SELFPAY ==
[2019-02-26 13:44] VITALS: BMI 24.5
[2019-02-26 13:45] VITALS: BP 143/68; PULSE 84; RESP 20; O2SAT 93
[2019-02-26 14:00] VITALS: BP 136/76; PULSE 96; RESP 20; O2SAT 93
[2019-02-26 14:23] LABS: Ferritin 100 ng/mL (8-388)
== END 2019-02-26 15:45 | disposition home or self-care (01) ==
LOC: INF 13:44
PROVIDERS: Visit Provider Nurse Practitioner Family
DX: R79.89 Other specified abnormal findings of blood chemistry (principal); E88.01 Alpha-1-antitrypsin deficiency
CPT/HCPCS: 82728; 96365; J0256

== ENCOUNTER 2019-03-05 12:44 | Outpatient (CLI) | payer MEDICARE, BC, SELFPAY ==
[2019-03-05 13:50] VITALS: BP 149/79; PULSE 80; RESP 22; O2SAT 84
[2019-03-05 15:15] VITALS: BP 136/58; PULSE 73; RESP 22
== END 2019-03-05 16:00 | disposition home or self-care (01) ==
LOC: INF 12:44
PROVIDERS: Visit Provider Nurse Practitioner Family
DX: E88.01 Alpha-1-antitrypsin deficiency (principal)
CPT/HCPCS: 96365; 99195; J0256

== ENCOUNTER 2019-03-12 10:59 | Outpatient (CLI) | payer MEDICARE, BC, SELFPAY ==
[2019-03-12 11:00] VITALS: BMI 24.5
[2019-03-12 11:30] VITALS: BP 173/95; PULSE 69; RESP 20; O2SAT 94
[2019-03-12 12:00] VITALS: BP 152/73; PULSE 83; RESP 18
[2019-03-12 12:19] LABS: Ferritin 70 ng/mL (8-388)
[2019-03-12 12:50] VITALS: BP 135/67; PULSE 93; RESP 18
== END 2019-03-12 13:24 | disposition home or self-care (01) ==
LOC: INF 10:59
PROVIDERS: Visit Provider Internal Medicine Adolescent Medicine
DX: R79.89 Other specified abnormal findings of blood chemistry (principal); E88.01 Alpha-1-antitrypsin deficiency
CPT/HCPCS: 82728; 96365; J0256

== ENCOUNTER 2019-03-19 13:28 | Outpatient (CLI) | payer MEDICARE, BC, SELFPAY ==
[2019-03-19 13:35] VITALS: BP 136/81; PULSE 91; RESP 20; O2SAT 94
[2019-03-19 14:15] VITALS: BP 131/56; PULSE 80; RESP 18
== END 2019-03-19 15:15 | disposition home or self-care (01) ==
LOC: INF 13:28
PROVIDERS: Visit Provider Internal Medicine Adolescent Medicine
DX: E88.01 Alpha-1-antitrypsin deficiency (principal)
CPT/HCPCS: 96365; J0256

== ENCOUNTER 2019-03-23 14:23 | Outpatient (CLI) | payer MEDICARE, BC, SELFPAY ==
[2019-03-23 14:20] VITALS: BP 112/74; PULSE 80; RESP 20; TEMP 36.9; O2SAT 95
[2019-03-23 15:20] VITALS: BP 118/61; PULSE 83; RESP 20; TEMP 36.9; O2SAT 95
[2019-03-23 15:30] VITALS: BP 132/68; PULSE 68; RESP 20; TEMP 36.9; O2SAT 95
== END 2019-03-23 15:30 | disposition home or self-care (01) ==
LOC: INF 14:23
PROVIDERS: Visit Provider Nurse Practitioner Family
DX: E88.01 Alpha-1-antitrypsin deficiency (principal)
CPT/HCPCS: 96365; 96366; J0256

== ENCOUNTER 2019-04-02 12:20 | Outpatient (CLI) | payer MEDICARE, BC, SELFPAY ==
[2019-04-02 12:35] VITALS: BMI 24.7
[2019-04-02 13:05] VITALS: BP 143/84; PULSE 74; RESP 20; O2SAT 93
[2019-04-02 13:19] LABS: Ferritin 45 ng/mL (8-388)
[2019-04-02 14:30] VITALS: BP 153/75; PULSE 99; RESP 20
== END 2019-04-02 14:55 | disposition home or self-care (01) ==
LOC: INF 12:30
PROVIDERS: Visit Provider Internal Medicine Adolescent Medicine
DX: E88.01 Alpha-1-antitrypsin deficiency; R79.89 Other specified abnormal findings of blood chemistry
CPT/HCPCS: 82728; 96365; J0256

== ENCOUNTER 2019-04-09 12:04 | Outpatient (CLI) | payer MEDICARE, BC, SELFPAY ==
[2019-04-09 12:11] VITALS: BMI 24.3
[2019-04-09 12:35] VITALS: BP 140/70; PULSE 76; RESP 20
[2019-04-09 12:38] LABS: Basophils % 0.6 % (0.1-2.0); Eosinophils # 0.3 K/mm3 (0.0-0.4); Eosinophils % 5.1 % (0.1-12.0); Hematocrit 38.2 % (42.0-52.0); Hemoglobin 12.1 g/dL (14.1-18.0); Lymphocytes # 1.6 K/mm3 (0.7-4.5); Lymphocytes % 27.2 % (10-50); Mean Corpuscular HGB Conc 31.8 g/dL (31.8-35.4); Mean Corpuscular Hemoglobin 21.9 pg (27.0-31.2); Mean Corpuscular Volume 68.9 fl (80-94); Mean Platelet Volume 7.9 fl (7.4-10.4); Monocytes # 0.6 K/mm3 (0.1-1.0); Monocytes % 9.9 % (1.7-9.3); Neutrophils # 3.3 K/mm3 (1.8-7.8); Neutrophils % 57.3 % (37.0-80.0); Platelet Count 155 K/mm3 (142-424); Red Blood Count 5.55 M/mm3 (4.60-6.20); Red Cell Distribution Width 16.3 % (11.5-17.5); White Blood Count 5.7 K/mm3 (4.8-10.8)
[2019-04-09 13:00] LABS: Alanine Aminotransferase 29 U/L (12-78); Albumin Level 3.4 gm/dL (3.4-5.0); Alkaline Phosphatase 117 U/L (46-116); Anion Gap 10.9 mEq/L (5-15); Aspartate Amino Transferase 21 U/L (15-37); Bilirubin,Direct 0.2 mg/dL (0.0-0.2); Bilirubin,Indirect 0.7 mg/dL (0.0-0.9); Bilirubin,Total 0.9 mg/dL (0.2-1.0); Blood Urea Nitrogen 16 mg/dL (7-18); Calcium 8.5 mg/dL (8.5-10.1); Carbon Dioxide 30 mmol/L (21.0-32.0); Chloride 104 mmol/L (98-107); Creatinine Clearance Estimated 62 mL/min (50-200); Creatinine,Serum 0.83 mg/dL (0.70-1.30); Estimated Glomerular Filt Rate 89 ml/min (>60); Ferritin 53 ng/mL (8-388); GFR (African American) 108 ML/MIN (>60); Globulin 3.3 gm/dl (1.3-3.2); Glucose 87 mg/dL (74-106); Potassium 3.9 mmoL/L (3.5-5.1); Sodium 141 mmol/L (136-145); Total Protein,Serum 6.7 gm/dL (6.4-8.2)
[2019-04-09 15:10] VITALS: BP 132/78; PULSE 81; RESP 20
== END 2019-04-09 15:15 | disposition home or self-care (01) ==
LOC: INF 12:04
PROVIDERS: Visit Provider Internal Medicine Adolescent Medicine
DX: E88.01 Alpha-1-antitrypsin deficiency (principal); R79.89 Other specified abnormal findings of blood chemistry
CPT/HCPCS: 80053; 80076; 82728; 85025; 96365; J0256

== ENCOUNTER 2019-04-16 13:22 | Outpatient (CLI) | payer MEDICARE, BC, SELFPAY ==
[2019-04-16 14:05] VITALS: BP 126/70; PULSE 84; RESP 20; O2SAT 92
[2019-04-16 14:35] VITALS: BP 134/70; PULSE 82; RESP 20
[2019-04-16 15:05] VITALS: BP 148/76; PULSE 88; RESP 20
== END 2019-04-16 16:05 | disposition home or self-care (01) ==
LOC: INF 13:22
PROVIDERS: Visit Provider Nurse Practitioner Family
DX: E88.01 Alpha-1-antitrypsin deficiency (principal)
CPT/HCPCS: 96365; J0256

== ENCOUNTER 2019-04-22 13:07 | Outpatient (CLI) | payer MEDICARE, BC, SELFPAY ==
[2019-04-22 13:35] VITALS: BP 153/81; PULSE 83; RESP 20; O2SAT 95
[2019-04-22 14:35] VITALS: BP 132/62; PULSE 84; RESP 20
== END 2019-04-22 15:18 | disposition home or self-care (01) ==
LOC: INF 13:07
PROVIDERS: Visit Provider Nurse Practitioner Family
DX: E88.01 Alpha-1-antitrypsin deficiency (principal); R79.89 Other specified abnormal findings of blood chemistry
CPT/HCPCS: 96365; J0256

== ENCOUNTER 2019-04-30 13:00 | Outpatient (CLI) | payer MEDICARE, BC, SELFPAY ==
[2019-04-30 13:50] VITALS: BP 124/58; PULSE 89; RESP 22; O2SAT 97
[2019-04-30 14:35] VITALS: BP 102/83; PULSE 69; RESP 20
[2019-04-30 15:20] VITALS: BP 140/58; PULSE 78; RESP 20
== END 2019-04-30 15:45 | disposition home or self-care (01) ==
LOC: INF 13:03
PROVIDERS: Visit Provider Internal Medicine Adolescent Medicine
DX: E88.01 Alpha-1-antitrypsin deficiency (principal)
CPT/HCPCS: 96365; J0256

== ENCOUNTER 2019-05-07 13:25 | Outpatient (CLI) | payer MEDICARE, BC, SELFPAY ==
[2019-05-07 13:30] VITALS: BMI 24.7
[2019-05-07 14:00] VITALS: BP 145/90; PULSE 76; RESP 22; O2SAT 93
[2019-05-07 14:18] LABS: Ferritin 57 ng/mL (8-388)
[2019-05-07 14:45] VITALS: BP 143/69; PULSE 83; RESP 20
[2019-05-07 15:30] VITALS: BP 151/70; PULSE 85; RESP 18
== END 2019-05-07 16:35 | disposition home or self-care (01) ==
LOC: INF 13:28
PROVIDERS: Visit Provider Internal Medicine Adolescent Medicine
DX: E88.01 Alpha-1-antitrypsin deficiency (principal)
CPT/HCPCS: 82728; 96365; J0256

== ENCOUNTER 2019-05-14 13:03 | Outpatient (CLI) | payer MEDICARE, BC, SELFPAY ==
[2019-05-14 13:21] VITALS: BP 152/90; PULSE 69; RESP 18; TEMP 36.6; O2SAT 98
[2019-05-14 14:00] VITALS: BP 148/89; PULSE 67; RESP 18; O2SAT 97
== END 2019-05-14 14:20 | disposition home or self-care (01) ==
LOC: INF 13:03
PROVIDERS: Visit Provider Internal Medicine Adolescent Medicine
DX: E88.01 Alpha-1-antitrypsin deficiency (principal)
CPT/HCPCS: 96365; J0256

== ENCOUNTER 2019-05-21 11:04 | Outpatient (CLI) | payer MEDICARE, BC, SELFPAY ==
[2019-05-21 11:30] VITALS: BP 157/105; PULSE 79; RESP 22; O2SAT 93
[2019-05-21 12:00] VITALS: BP 151/74; PULSE 76; RESP 20
[2019-05-21 12:40] VITALS: BP 138/68; PULSE 76; RESP 20
== END 2019-05-21 13:20 | disposition home or self-care (01) ==
LOC: INF 11:04
PROVIDERS: Visit Provider Internal Medicine Adolescent Medicine
DX: E88.01 Alpha-1-antitrypsin deficiency (principal)
CPT/HCPCS: 96365; J0256

== ENCOUNTER 2019-05-28 12:43 | Outpatient (CLI) | payer MEDICARE, BC, SELFPAY ==
[2019-05-28 12:43] VITALS: BMI 24.7
[2019-05-28 13:05] VITALS: BP 159/86; PULSE 66; RESP 20; O2SAT 96
[2019-05-28 13:40] LABS: Ferritin 39.5 ng/ml (17.9-464)
[2019-05-28 15:20] VITALS: BP 146/76; PULSE 81; RESP 20; O2SAT 94
== END 2019-05-28 15:21 | disposition home or self-care (01) ==
LOC: INF 12:43
PROVIDERS: Visit Provider Internal Medicine Adolescent Medicine
DX: R79.89 Other specified abnormal findings of blood chemistry (principal); E88.01 Alpha-1-antitrypsin deficiency
CPT/HCPCS: 82728; 96365; J0256

== ENCOUNTER 2019-06-04 13:27 | Outpatient (CLI) | payer MEDICARE, BC, SELFPAY ==
[2019-06-04 13:40] VITALS: BP 152/88; PULSE 74; RESP 20; O2SAT 93
[2019-06-04 15:11] VITALS: BP 136/67; PULSE 77; RESP 20
== END 2019-06-04 15:11 | disposition home or self-care (01) ==
LOC: INF 13:27
PROVIDERS: Visit Provider Nurse Practitioner Family
DX: E88.01 Alpha-1-antitrypsin deficiency (principal)
CPT/HCPCS: 96365; J0256

== ENCOUNTER 2019-06-11 11:36 | Outpatient (CLI) | payer MEDICARE, BC, SELFPAY ==
[2019-06-11 12:18] VITALS: BP 151/81; PULSE 67; RESP 20; O2SAT 92
[2019-06-11 14:19] VITALS: BP 149/87; PULSE 79; RESP 20
== END 2019-06-11 14:21 | disposition home or self-care (01) ==
LOC: INF 11:36
PROVIDERS: Visit Provider Nurse Practitioner Family
DX: E88.01 Alpha-1-antitrypsin deficiency (principal); R79.89 Other specified abnormal findings of blood chemistry
CPT/HCPCS: 96365; J0256

== ENCOUNTER 2019-06-18 12:40 | Outpatient (CLI) | payer MEDICARE, BC, SELFPAY ==
[2019-06-18 13:45] VITALS: BP 115/71; PULSE 77; RESP 20; TEMP 36.9; O2SAT 95
[2019-06-18 14:06] VITALS: BMI 24.9
[2019-06-18 14:30] VITALS: BP 116/74; PULSE 68; RESP 20; TEMP 36.9; O2SAT 95
[2019-06-18 15:00] VITALS: BP 118/74; PULSE 68; RESP 20; TEMP 36.9; O2SAT 95
[2019-06-18 15:58] LABS: Ferritin 47.3 ng/ml (17.9-464)
== END 2019-06-18 15:18 | disposition home or self-care (01) ==
LOC: INF 12:40
PROVIDERS: Visit Provider Nurse Practitioner Family
DX: R79.89 Other specified abnormal findings of blood chemistry (principal); E88.01 Alpha-1-antitrypsin deficiency
CPT/HCPCS: 82728; 96365; J0256

== ENCOUNTER 2019-06-25 12:30 | Outpatient (CLI) | payer MEDICARE, BC, SELFPAY ==
[2019-06-25 13:10] VITALS: BP 161/85; PULSE 91; RESP 20; TEMP 36.8; O2SAT 92
[2019-06-25 13:12] VITALS: BMI 24.6
[2019-06-25 13:20] LABS: Basophils % 0.4 % (0.1-2.0); Eosinophils # 0.3 K/mm3 (0.0-0.4); Eosinophils % 3.1 % (0.1-12.0); Hematocrit 41.6 % (42.0-52.0); Hemoglobin 12.6 g/dL (14.1-18.0); Lymphocytes # 2.3 K/mm3 (0.7-4.5); Lymphocytes % 27.2 % (10-50); Mean Corpuscular HGB Conc 30.2 g/dL (31.8-35.4); Mean Corpuscular Hemoglobin 20.4 pg (27.0-31.2); Mean Corpuscular Volume 67.5 fl (80-94); Mean Platelet Volume 8.6 fl (7.4-10.4); Monocytes # 0.8 K/mm3 (0.1-1.0); Monocytes % 9.4 % (1.7-9.3); Platelet Count 185 K/mm3 (142-424); Red Blood Count 6.16 M/mm3 (4.60-6.20); Red Cell Distribution Width 16.4 % (11.5-17.5); White Blood Count 8.3 K/mm3 (4.8-10.8)
[2019-06-25 13:25] LABS: Alanine Aminotransferase 20 U/L (12-78); Albumin Level 4.3 g/dl (3.5-5.0); Albumin/Globulin Ratio 1.6 (1.1-1.8); Alkaline Phosphatase 107 U/L (38-126); Anion Gap 13.1 mEq/L (5-15); Aspartate Amino Transferase 28 U/L (17-59); Bilirubin,Indirect 0.9 mg/dL (0.0-0.9); Bilirubin,Total 0.9 mg/dl (0.2-1.3); Bilirubin,Unconjugated 0.9 mg/dL (0.0-1.1); Blood Urea Nitrogen 19 mg/dl (9-20); Calcium 9.2 mg/dl (8.4-10.2); Carbon Dioxide 28 mmol/L (22.0-30.0); Chloride 103 mmol/L (98-107); Creatinine Clearance Estimated 63 mL/min (50-200); Estimated Glomerular Filt Rate 109 ml/min (>60); GFR (African American) 131 ML/MIN (>60); Globulin 2.7 g/dL (1.3-3.2); Glucose 81 mg/dl (74-100); Potassium 4.1 mmoL/L (3.5-5.1); Sodium 140 mmol/L (136-145)
[2019-06-25 13:55] VITALS: BP 137/67; PULSE 88; RESP 20
[2019-06-25 14:40] VITALS: BP 143/76; PULSE 81; RESP 20
== END 2019-06-25 16:15 | disposition home or self-care (01) ==
LOC: INF 12:57
PROVIDERS: Visit Provider Internal Medicine Adolescent Medicine
DX: E88.01 Alpha-1-antitrypsin deficiency (principal)
CPT/HCPCS: 80053; 80076; 85025; 96365; J0256

== ENCOUNTER 2019-07-02 12:35 | Outpatient (CLI) | payer MEDICARE, BC, SELFPAY ==
[2019-07-02 13:00] VITALS: BP 178/94; PULSE 73; RESP 20; TEMP 35.8; O2SAT 95
[2019-07-02 13:30] VITALS: BP 146/63; PULSE 78; RESP 20
[2019-07-02 14:00] VITALS: BP 142/68; PULSE 78; RESP 20
== END 2019-07-02 14:55 | disposition home or self-care (01) ==
LOC: INF 12:35
PROVIDERS: Visit Provider Nurse Practitioner Family
DX: E88.01 Alpha-1-antitrypsin deficiency (principal)
CPT/HCPCS: 96365; J0256

== ENCOUNTER 2019-07-09 12:38 | Outpatient (CLI) | payer MEDICARE, BC, SELFPAY ==
[2019-07-09 13:00] VITALS: BP 149/88; PULSE 70; RESP 22; O2SAT 95
[2019-07-09 15:21] VITALS: BP 136/75; PULSE 78; RESP 20; O2SAT 94
== END 2019-07-09 15:23 | disposition home or self-care (01) ==
LOC: INF 12:38
PROVIDERS: Visit Provider Internal Medicine Adolescent Medicine
DX: E88.01 Alpha-1-antitrypsin deficiency (principal)
CPT/HCPCS: 96365; J0256

== ENCOUNTER 2019-07-16 12:00 | Outpatient (CLI) | payer MEDICARE, BC, SELFPAY ==
[2019-07-16 12:10] VITALS: BMI 24.7
[2019-07-16 12:35] VITALS: BP 164/85; PULSE 67; RESP 20; TEMP 36.9; O2SAT 95
[2019-07-16 13:05] VITALS: BP 172/78; PULSE 75; RESP 20
[2019-07-16 13:21] LABS: Ferritin 76.3 ng/ml (17.9-464)
[2019-07-16 13:35] VITALS: BP 122/63; PULSE 80; RESP 20
[2019-07-16 14:00] VITALS: BP 136/67; PULSE 79; RESP 20
== END 2019-07-16 15:00 | disposition home or self-care (01) ==
LOC: INF 12:06
PROVIDERS: Visit Provider Internal Medicine Adolescent Medicine
DX: E88.01 Alpha-1-antitrypsin deficiency (principal); R79.89 Other specified abnormal findings of blood chemistry
CPT/HCPCS: 82728; 96365; J0256

== ENCOUNTER 2019-07-22 12:40 | Outpatient (CLI) | payer MEDICARE, BC, SELFPAY ==
[2019-07-22 13:15] VITALS: BP 140/79; PULSE 65; RESP 20; TEMP 36.4; O2SAT 95
[2019-07-22 14:00] VITALS: BP 116/75; PULSE 85; RESP 20
[2019-07-22 14:45] VITALS: BP 139/70; PULSE 82; RESP 20
== END 2019-07-22 15:30 | disposition home or self-care (01) ==
LOC: INF 12:50
PROVIDERS: Visit Provider Internal Medicine Adolescent Medicine
DX: E88.01 Alpha-1-antitrypsin deficiency (principal)
CPT/HCPCS: 96365; J0256

== ENCOUNTER 2019-07-30 11:43 | Outpatient (CLI) | payer MEDICARE, BC, SELFPAY ==
[2019-07-30 12:20] VITALS: BP 144/89; PULSE 69; RESP 20
[2019-07-30 14:45] VITALS: BP 135/68; PULSE 69; RESP 20
== END 2019-07-30 14:45 | disposition home or self-care (01) ==
LOC: INF 11:43
PROVIDERS: PCP Internal Medicine Adolescent Medicine; Visit Provider Internal Medicine Adolescent Medicine
DX: E88.01 Alpha-1-antitrypsin deficiency (principal)
CPT/HCPCS: 96365; 99195; J0256

== ENCOUNTER 2019-08-06 11:25 | Outpatient (CLI) | payer MEDICARE, BC, SELFPAY ==
[2019-08-06 11:33] VITALS: BMI 24.6
[2019-08-06 11:45] VITALS: BP 156/78; PULSE 78; RESP 20; TEMP 36.7; O2SAT 96
[2019-08-06 12:20] VITALS: BP 143/73; PULSE 76; RESP 20
[2019-08-06 12:55] VITALS: BP 117/69; PULSE 85; RESP 20
== END 2019-08-06 13:40 | disposition home or self-care (01) ==
LOC: INF 11:31
PROVIDERS: Visit Provider Nurse Practitioner Family
DX: E88.01 Alpha-1-antitrypsin deficiency (principal); R79.89 Other specified abnormal findings of blood chemistry
CPT/HCPCS: 82728; 96365; J0256

== ENCOUNTER 2019-08-13 12:29 | Outpatient (CLI) | payer MEDICARE, BC, SELFPAY ==
[2019-08-13 13:00] VITALS: BP 146/79; PULSE 78; RESP 20; TEMP 36.6; O2SAT 93
[2019-08-13 14:10] VITALS: BP 127/69; PULSE 75; RESP 20
== END 2019-08-13 15:15 | disposition home or self-care (01) ==
LOC: INF 12:29
PROVIDERS: Visit Provider Internal Medicine Adolescent Medicine
DX: E88.01 Alpha-1-antitrypsin deficiency (principal)
CPT/HCPCS: 96365; J0256

== ENCOUNTER 2019-08-19 12:20 | Outpatient (CLI) | payer MEDICARE, BC, SELFPAY ==
[2019-08-19 12:55] VITALS: BP 162/74; PULSE 74; RESP 20; TEMP 36.6; O2SAT 90
[2019-08-19 13:25] VITALS: BP 159/74; PULSE 77; RESP 20
[2019-08-19 13:55] VITALS: BP 120/66; PULSE 70; RESP 20
[2019-08-19 14:25] VITALS: BP 121/64; PULSE 63; RESP 20; O2SAT 94
== END 2019-08-19 15:30 | disposition home or self-care (01) ==
LOC: INF 12:26
PROVIDERS: Visit Provider Nurse Practitioner Family
DX: E88.01 Alpha-1-antitrypsin deficiency (principal)
CPT/HCPCS: 96365; J0256

== ENCOUNTER 2019-08-27 12:05 | Outpatient (CLI) | payer MEDICARE, BC, SELFPAY ==
[2019-08-27 12:07] VITALS: BMI 24.6
[2019-08-27 12:45] VITALS: BP 143/77; PULSE 68; RESP 20; TEMP 36.9; O2SAT 95
[2019-08-27 13:17] LABS: Ferritin 59.2 ng/ml (17.9-464)
[2019-08-27 14:30] VITALS: BP 136/66; PULSE 68; RESP 20; TEMP 36.9; O2SAT 95
== END 2019-08-27 14:30 | disposition home or self-care (01) ==
LOC: INF 12:05
PROVIDERS: Visit Provider Internal Medicine Adolescent Medicine
DX: R79.89 Other specified abnormal findings of blood chemistry (principal); E88.01 Alpha-1-antitrypsin deficiency
CPT/HCPCS: 82728; 96365; 96366; J0256

== ENCOUNTER 2019-08-28 16:54 | Emergency (ER) | payer MEDICARE, BC, SELFPAY ==
--- NOTE | 2019-08-28 17:03 | XR_ITS ---
PROCEDURE: XR SOFT TISSUE NECK Patient Age:78Y CLINICAL INDICATION: fishbone in throat? COMPARISON: No exams were available for comparison FINDINGS: History states raises concern regarding fish bone in throat. Fish bones can be difficult to visualize thin and not well calcified but The lateral view shows a normal epiglottis. Normal retropharyngeal soft tissues. At the base of puriform sinuses on lateral view there is a thin linear/curvilinear density. It may merely be related to calcification of other structures but difficult to exclude in foreign body or fishbone. Findings were discussed with the ER physician and a CT will be performed There are degenerative changes in the cervical spine. Anterior marginal osteophytes at C3/4 and C4/5 mildly impinge upon the posterior aspect of the hypopharynx. Anterior marginal osteophytes also seen anteriorly C6/7 and less evident atc5/6. AP views show some hyperexpansion of the lung apices likely reflecting emphysematous changes but IMPRESSION: Note that fishbone foreign body very difficult to visualize on plain film No definitive,, no no prominent findings on this study. Retropharyngeal soft tissues are normal. However there is a subtle, slight curious linear/curvilinear density at the base of the piriform sinus region on lateral view.f the patient does have significant symptoms and a CT of neck would be recommended to further exclude or evaluate for possible and thin fishbone in throat Would also note anterior marginal osteophytes at C-spine which do impinge upon the hypopharynx and could contribute to dysphagia symptoms Dictated by: Jorge Sharp MD 08/28/2019 23:09 Electronically signed by Jorge Sharp MD in [place] 08/28/2019 23:09
--- NOTE | 2019-08-28 17:05 | HMH.EDGENADL ---
ED Disposition Clinical Impression: Esophageal abrasion Qualifiers: Encounter type: initial encounter Qualified Code(s): S27.818A - Other injury of esophagus (thoracic part), initial encounter Disposition: Home, Self-Care Condition on Discharge: Good Referrals: Ricky Shaver MD [Primary Care Provider] - 3 days - Critical Care Critical Care Time: No Attestation: On 08/28/19, the high probability of a clinically significant, sudden or life threatening deterioration of the following system(s) required my full and direct attention, intervention and personal management. The time I documented below is in addition to time spent performing reported procedures but includes the following listed in this critical care notation. Medical Decision Making - Medical Records Medical records reviewed: Yes: I reviewed the patient's medical records. - Gustavo Inquiry Pt receiving controlled substance: No Vital Signs: 08/28/19 17:09 Temperature 98 F Temperature Source Oral Pulse Rate [Left Radial] 91 H Respiratory Rate 20 Blood Pressure [Right Radial Artery] 174/81 H Blood Pressure Mean [Right Radial Artery] 112 Blood Pressure Position [Right Radial Artery] Sitting 02 Sat by Pulse Oximetry 98 Oxygen Delivery Method Room Air Orders (Tests/Meds): ED MEDICATIONS Discontinued Medications Generic Name Dose Route Start Last Admin Trade Name Freq PRN Reason Stop Dose Admin Belladonna Alkaloids 60 ml 08/28/19 17:04 Gi Cocktail 60ml Udc PO 08/28/19 17:05 ONCE ONE ORDERS Category Date Time Status Neck soft tissue XR [XR soft tissue neck] Stat Exams 08/28/19 17:03 Taken - CT Data CT Scan: Other (Neck soft tissue) Time Received: 19:[address] Reviewed: Yes: I have reviewed the patient's CT results Findings Narrative: No radiopaque foreign body. Degenerative changes present, possible esophagitis, emphysema Medical Decision Narrative: Initial x-ray with some concern for possible radiopaque foreign body that may represent a fishbone. CT neck soft tissue was obtained which shows no radiopaque foreign body. Patient given GI cocktail, discharged home. No free air in the neck or mediastinum. No perforated esophagus. Discussed return precautions and advised to follow-up with primary care provider in 2 to 3 days for reevaluation. General Adult HPI - General Stated complaint: Possible fishbone in throat Time Seen by Provider: 08/28/19 17:05 Mode of Arrival: Ambulatory Source of Information: Patient, Spouse Limitations: No Limitations - History of Present Illness HPI narrative: This is an 78-year-old male with a past medical history significant for oxygen dependent COPD who presents to the emergency department for evaluation of sensation of fishbone stuck in his throat since last night. He states that he has an irritating sensation in the middle of his throat just between the chin and the sternal notch. He denies any chest pain. No vomiting. He has tried peanut butter, bananas, vinegar with no relief of symptoms. He tried to cough the bone up with no success. - Related Data Home Medications Medication Instructions Recorded Confirmed Albuterol Sulfate [Proair Hfa 2 puffs IH NEEDED PRN 03/28/17 08/27/19 90mcg/puff Inh] Aspirin [Aspirin 81mg chewable 81 mg PO DAILYP PRN 03/28/17 08/27/19 tab] Codeine Phosphate/Guaifenesin 5 ml PO NEEDED PRN 03/28/17 08/27/19 [Guaifenesin-Codeine Syrup] Fluticasone/Salmeterol [Advair 1 each IH BID 03/28/17 08/27/19 500/50mcg diskus] guaiFENesin [Guaifenesin] 400 mg PO BID 03/28/17 08/27/19 Tamsulosin HCl 0.4 mg PO DAILY 12/25/18 08/27/19 Allergies Allergy/AdvReac Type Severity Reaction Status Date / Time No Known Allergies Allergy Verified 04/03/18 17:41 [facility] History - Hepatitis A Screen Attestation statement:: This patient has been screened for Hepatitis A risk factors. I have reviewed the patient's past medical hi
[2019-08-28 17:09] VITALS: BP 174/81; PULSE 91; RESP 20; TEMP 36.6; O2SAT 98; BMI 24.3
--- NOTE | 2019-08-28 17:55 | CT_ITS ---
PROCEDURE: CT SOFT TISSUE NECK WO CON Patient Age:78Y CLINICAL HISTORY: fish bone? Difficulty swallowing since eating fish yesterday Dysphasia COMPARISON: ABDPELW CT ABD PELVIS W/ CONTRAST from 02/18/2013 ABDPELW/O CT ABD PELVIS W/O CONTRAST from 01/07/2014 CXR CHEST(2 VIEWS-NOT PORTABLE) from 02/25/2017 TECHNIQUE: Oral Contrast: None IV Contrast: None The initial set of images through the entire neck. A 2nd set of images through the hypopharynx also performed Helical axial images obtained with sagittal and coronal reformats. All CT scans at the facility use one or more dose reduction, viz: automated exposure control, ma/kV adjustment per patient size (including targeted exams where dose is matched to indication, i.e. head), or iterative reconstruction technique. FINDINGS: . No evidence of fishbone or radiopaque foreign body at hypopharynx or kareen pharynx. Particular attention is directed to the region vallecular. The right vallecula a is slightly more aerated and generous sign the left but no radiopaque foreign body or discrete pathology here. Base of tongue region satisfactory with mild lymphoid tissue here most evident towards left vallecular region. Piriformis sinuses at the hypopharynx appear nicely distended with air. These appear symmetric in satisfactory period supraglottic region satisfactory. Prevertebral soft tissues appear normal.. Of this older patient has fairly calcification of thyroid cartilage, laryngeal cartilage and cricoid cartilages. The areas that were initially question on plain film are related to the superior margin of thyroid cartilage and reflects normal aging calcifications. . Thyroid not enlarged no prominent findings here. Scattered small nodes the neck but no remarkable pathologic appearing nodes or masses at this time. The The patient does have degenerative changes in the spine with straightening and subtle reversal of cervical curvature multilevel degenerative disc changes and spondylosis the with anterior marginal osteophytes-which can at times yield symptoms of dysphasia when the compress upon hypopharynx or esophagus:: C4/5: Slight degenerative anterior listhesis less than 2 mm anterior position of C4 on C5. Anterior marginal osteophytes most notable at this level. And slightly impinge upon the left base appear form sinus. Conceivably could contribute to symptoms of dysphasia.. C6/7 moderate marginal osteophytes anteriorly at C6/7 just to the right doubtful significance but also noted. Smaller anterior marginal osteophytes C5/6 and C3/4 not of significant concern. The patient has a large caliber large volume trachea. ---- In the subglottic region I would would note the patient has a thickened appearance of the esophagus which begins in the cervical esophagus and continues into the visualized thoracic esophagus to the level aortic arch. Correlation required. Due symptoms suggest esophagitis? If symptoms persist patient may benefit follow-up endoscopy or laryngoscopy depending on the level of symptoms. No radiopaque foreign body is seen in the proximal esophagus . Emphysematous changes are seen at apices of lungs to the upper chest but of no significant adenopathy or mass at the visualized superior most mediastinum with imaging down to the top of the aortic arch. No anomalous great vessels from aortic arch IMPRESSION: . No fishbone nor radiopaque foreign bodies seen involving the oropharynx, hypopharynx or upper esophagus. Prevertebral and regional soft tissues about the hypopharynx appear satisfactory. . Degenerative changes C-spine with notable anterior marginal osteophytes most evident C4/5 but these slightly impinge upon the
[2019-08-28 19:25] VITALS: BP 142/80; PULSE 65; RESP 18; TEMP 36.7; O2SAT 98
== END 2019-08-28 19:27 | disposition home or self-care (01) ==
PROVIDERS: Emergency Provider Emergency Medicine; PCP Internal Medicine Adolescent Medicine
DX: S27.818A Other injury of esophagus (thoracic part), initial encounter (principal); W45.8XXA Other foreign body or object entering through skin, initial encounter; Y92.019 Unspecified place in single-family (private) house as the place of occurrence of the external cause; J44.9 Chronic obstructive pulmonary disease, unspecified; Z99.81 Dependence on supplemental oxygen; I10 Essential (primary) hypertension; C67.9 Malignant neoplasm of bladder, unspecified
CPT/HCPCS: 70360; 70490; 99282

== ENCOUNTER 2019-09-03 09:53 | Outpatient (CLI) | payer MEDICARE, BC, SELFPAY ==
[2019-09-03 10:25] VITALS: BP 142/84; PULSE 72; RESP 20; O2SAT 95
[2019-09-03 10:55] VITALS: BP 159/85; PULSE 63; RESP 20
[2019-09-03 11:25] VITALS: BP 155/71; PULSE 75; RESP 18
[2019-09-03 11:55] VITALS: BP 157/80; PULSE 70; RESP 18
== END 2019-09-03 12:35 | disposition home or self-care (01) ==
LOC: INF 09:53
PROVIDERS: Visit Provider Internal Medicine Adolescent Medicine
DX: E88.01 Alpha-1-antitrypsin deficiency (principal)
CPT/HCPCS: 96365; J0256

== ENCOUNTER 2019-09-13 10:20 | Outpatient (CLI) | payer MEDICARE, BC, SELFPAY ==
[2019-09-13 10:33] VITALS: BMI 24.6
[2019-09-13 10:50] VITALS: BP 138/74; PULSE 72; RESP 20; O2SAT 92
[2019-09-13 11:34] LABS: Ferritin 56.7 ng/ml (17.9-464)
[2019-09-13 12:55] VITALS: BP 148/64; PULSE 77; RESP 20; O2SAT 96
== END 2019-09-13 12:55 | disposition home or self-care (01) ==
LOC: INF 10:32
PROVIDERS: Visit Provider Internal Medicine Adolescent Medicine
DX: R79.89 Other specified abnormal findings of blood chemistry (principal); E88.01 Alpha-1-antitrypsin deficiency
CPT/HCPCS: 82728; 96365; 96366; J0256

== ENCOUNTER 2019-09-17 12:58 | Outpatient (CLI) | payer MEDICARE, BC, SELFPAY ==
[2019-09-17 12:58] VITALS: BP 122/74; PULSE 68; RESP 20; TEMP 36.9; O2SAT 95
[2019-09-17 14:30] VITALS: BP 123/74; PULSE 68; RESP 20; TEMP 36.9; O2SAT 95
== END 2019-09-17 14:30 | disposition home or self-care (01) ==
LOC: INF 12:58
PROVIDERS: Visit Provider Internal Medicine Adolescent Medicine
DX: E88.01 Alpha-1-antitrypsin deficiency (principal)
CPT/HCPCS: 96365; J0256

== ENCOUNTER 2019-09-24 11:15 | Outpatient (CLI) | payer MEDICARE, BC, SELFPAY ==
[2019-09-24 11:15] VITALS: BMI 24.3
[2019-09-24 11:45] LABS: Basophils % 0.4 % (0.1-2.0); Eosinophils # 0.4 K/mm3 (0.0-0.4); Eosinophils % 4.8 % (0.1-12.0); Hematocrit 39.9 % (42.0-52.0); Hemoglobin 12.9 g/dL (14.1-18.0); Lymphocytes # 2.3 K/mm3 (0.7-4.5); Lymphocytes % 27.6 % (10-50); Mean Corpuscular HGB Conc 32.3 g/dL (31.8-35.4); Mean Corpuscular Hemoglobin 21.3 pg (27.0-31.2); Mean Corpuscular Volume 65.9 fl (80-94); Mean Platelet Volume 7.6 fl (7.4-10.4); Monocytes # 0.6 K/mm3 (0.1-1.0); Monocytes % 7.4 % (1.7-9.3); Neutrophils % 59.8 % (37.0-80.0); Platelet Count 166 K/mm3 (142-424); Red Blood Count 6.06 M/mm3 (4.60-6.20); Red Cell Distribution Width 16.4 % (11.5-17.5); White Blood Count 8.4 K/mm3 (4.8-10.8)
[2019-09-24 11:50] LABS: Chloride 105 mmol/L (98-107); Sodium 138 mmol/L (136-145)
[2019-09-24 11:53] LABS: Alanine Aminotransferase 25 U/L (12-78); Albumin/Globulin Ratio 1.4 (1.1-1.8); Alkaline Phosphatase 106 U/L (38-126); Aspartate Amino Transferase 35 U/L (17-59); Bilirubin,Indirect 1.2 mg/dL (0.0-0.9); Bilirubin,Total 1.2 mg/dl (0.2-1.3); Bilirubin,Unconjugated 1.2 mg/dL (0.0-1.1); Blood Urea Nitrogen 16 mg/dl (9-20); Calcium 8.9 mg/dl (8.4-10.2); Carbon Dioxide 30 mmol/L (22.0-30.0); Creatinine Clearance Estimated 62 mL/min (50-200); Estimated Glomerular Filt Rate 109 ml/min (>60); GFR (African American) 131 ML/MIN (>60); Globulin 2.9 g/dL (1.3-3.2); Glucose 94 mg/dl (74-100); Total Protein,Serum 6.9 g/dl (6.3-8.2)
[2019-09-24 11:55] VITALS: BP 149/88; PULSE 58; RESP 20; TEMP 36.9; O2SAT 95
[2019-09-24 12:29] LABS: Ferritin 58.1 ng/ml (17.9-464)
[2019-09-24 13:23] VITALS: BP 128/78; PULSE 58; RESP 20; TEMP 36.9; O2SAT 96
== END 2019-09-24 13:27 | disposition home or self-care (01) ==
LOC: INF 11:15
PROVIDERS: Visit Provider Internal Medicine Adolescent Medicine
DX: R79.89 Other specified abnormal findings of blood chemistry (principal); E88.01 Alpha-1-antitrypsin deficiency
CPT/HCPCS: 80053; 80076; 82728; 85025; 96365; J0256

== ENCOUNTER 2019-10-01 11:41 | Outpatient (CLI) | payer MEDICARE, BC, SELFPAY ==
[2019-10-01 12:20] VITALS: BP 151/75; PULSE 68; RESP 20; O2SAT 95
[2019-10-01 14:55] VITALS: BP 141/77; PULSE 86; RESP 20; O2SAT 95
== END 2019-10-01 14:55 | disposition home or self-care (01) ==
LOC: INF 11:41
PROVIDERS: Visit Provider Internal Medicine Adolescent Medicine
DX: E88.01 Alpha-1-antitrypsin deficiency (principal)
CPT/HCPCS: 96365; J0256

== ENCOUNTER 2019-10-08 12:55 | Outpatient (CLI) | payer MEDICARE, BC, SELFPAY ==
[2019-10-08 13:28] VITALS: BP 145/69; PULSE 67; RESP 20; O2SAT 94
[2019-10-08 14:45] VITALS: BP 142/78; PULSE 82; RESP 20
== END 2019-10-08 14:45 | disposition home or self-care (01) ==
LOC: INF 12:55
PROVIDERS: Visit Provider Internal Medicine Adolescent Medicine
DX: E88.01 Alpha-1-antitrypsin deficiency (principal)
CPT/HCPCS: 96365; J0256

== ENCOUNTER 2019-10-15 15:00 | Outpatient (CLI) | payer MEDICARE, BC, SELFPAY ==
[2019-10-15 13:22] VITALS: BP 124/69; PULSE 86; RESP 20; O2SAT 93
[2019-10-15 16:45] VITALS: BP 130/94; PULSE 80; RESP 20; O2SAT 94
== END 2019-10-15 16:45 | disposition home or self-care (01) ==
LOC: INF 15:06
PROVIDERS: Visit Provider Internal Medicine Adolescent Medicine
DX: E88.01 Alpha-1-antitrypsin deficiency (principal)
CPT/HCPCS: 96365; J0256

== ENCOUNTER 2019-10-22 12:06 | Outpatient (CLI) | payer MEDICARE, BC, SELFPAY ==
[2019-10-22 12:13] VITALS: BMI 24.3
[2019-10-22 12:25] VITALS: BP 163/77; PULSE 85; RESP 18; TEMP 36.4; O2SAT 95
[2019-10-22 13:06] LABS: Ferritin 66.3 ng/ml (17.9-464)
[2019-10-22 14:15] VITALS: BP 132/73; PULSE 80; RESP 20; O2SAT 96
== END 2019-10-22 14:15 | disposition home or self-care (01) ==
LOC: INF 12:06
PROVIDERS: Visit Provider Internal Medicine Adolescent Medicine
DX: R79.89 Other specified abnormal findings of blood chemistry (principal); E88.01 Alpha-1-antitrypsin deficiency
CPT/HCPCS: 82728; 96365; J0256

== ENCOUNTER 2019-10-29 11:37 | Outpatient (CLI) | payer MEDICARE, BC, SELFPAY ==
[2019-10-29 12:30] VITALS: BP 145/86; PULSE 79; RESP 18; TEMP 36.6
[2019-10-29 13:00] VITALS: BP 153/77; PULSE 79; RESP 18
[2019-10-29 13:30] VITALS: BP 120/64; PULSE 76; RESP 20
== END 2019-10-29 14:30 | disposition home or self-care (01) ==
LOC: INF 11:37
PROVIDERS: Visit Provider Internal Medicine Adolescent Medicine
DX: E88.01 Alpha-1-antitrypsin deficiency (principal)
CPT/HCPCS: 96365; 99195; J0256

== ENCOUNTER 2019-11-04 12:45 | Outpatient (CLI) | payer MEDICARE, BC, SELFPAY ==
[2019-11-04 12:47] VITALS: BMI 24.6
[2019-11-04 13:00] VITALS: BP 134/78; PULSE 68; RESP 20; TEMP 36.2; O2SAT 98
[2019-11-04 13:40] LABS: Ferritin 66.5 ng/ml (17.9-464)
[2019-11-04 14:00] VITALS: BP 127/65; PULSE 73; RESP 20
== END 2019-11-04 15:00 | disposition home or self-care (01) ==
LOC: INF 12:46
PROVIDERS: Visit Provider Nurse Practitioner Family
DX: E88.01 Alpha-1-antitrypsin deficiency (principal); R79.89 Other specified abnormal findings of blood chemistry
CPT/HCPCS: 82728; 96365; J0256

== ENCOUNTER 2019-11-12 14:00 | Outpatient (CLI) | payer MEDICARE, BC, SELFPAY ==
[2019-11-12 14:10] VITALS: BP 134/68; PULSE 90; RESP 20; O2SAT 94
[2019-11-12 15:30] VITALS: BP 136/85; PULSE 93; RESP 22; O2SAT 94
== END 2019-11-12 15:30 | disposition home or self-care (01) ==
LOC: INF 14:20
PROVIDERS: Visit Provider Nurse Practitioner Family
DX: E88.01 Alpha-1-antitrypsin deficiency (principal)
CPT/HCPCS: 96365; J0256

== ENCOUNTER 2019-11-19 14:40 | Outpatient (CLI) | payer MEDICARE, BC, SELFPAY ==
[2019-11-19 15:05] VITALS: BP 139/83; PULSE 81; RESP 20; TEMP 36.8; O2SAT 94
[2019-11-19 15:35] VITALS: BP 138/82; PULSE 82; RESP 20
[2019-11-19 16:05] VITALS: BP 120/60; PULSE 74; RESP 18
== END 2019-11-19 16:40 | disposition home or self-care (01) ==
LOC: INF 14:40
PROVIDERS: Visit Provider Internal Medicine Adolescent Medicine
DX: E88.01 Alpha-1-antitrypsin deficiency (principal)
CPT/HCPCS: 96365; J0256

== ENCOUNTER 2019-11-26 12:45 | Outpatient (CLI) | payer MEDICARE, BC, SELFPAY ==
[2019-11-26 13:15] VITALS: BP 125/74; PULSE 68; RESP 20; TEMP 36.9; O2SAT 95
[2019-11-26 13:22] VITALS: BMI 24.6
[2019-11-26 14:00] VITALS: BP 125/74; PULSE 68; RESP 20; TEMP 36.9; O2SAT 95
[2019-11-26 14:15] LABS: Ferritin 64.8 ng/ml (17.9-464)
[2019-11-26 14:35] VITALS: BP 128/74; PULSE 68; RESP 20; TEMP 36.9; O2SAT 95
== END 2019-11-26 14:45 | disposition home or self-care (01) ==
LOC: INF 12:45
PROVIDERS: Visit Provider Nurse Practitioner Family
DX: E88.01 Alpha-1-antitrypsin deficiency (principal); R79.89 Other specified abnormal findings of blood chemistry
CPT/HCPCS: 82728; 96365; J0256

== ENCOUNTER 2019-12-03 12:06 | Outpatient (CLI) | payer MEDICARE, BC, SELFPAY ==
[2019-12-03 12:20] VITALS: BP 138/87; PULSE 68; RESP 20; O2SAT 93
[2019-12-03 14:08] VITALS: BP 142/80; PULSE 71; RESP 18
== END 2019-12-03 14:12 | disposition home or self-care (01) ==
LOC: INF 12:06
PROVIDERS: Visit Provider Nurse Practitioner Family
DX: E88.01 Alpha-1-antitrypsin deficiency (principal)
CPT/HCPCS: 96365; J0256

== ENCOUNTER 2019-12-10 12:57 | Outpatient (CLI) | payer MEDICARE, BC, SELFPAY ==
[2019-12-10 13:30] VITALS: BP 181/95; PULSE 78; RESP 20; O2SAT 98
[2019-12-10 15:05] VITALS: BP 156/75; PULSE 70; RESP 20
== END 2019-12-10 15:05 | disposition home or self-care (01) ==
LOC: INF 12:57
PROVIDERS: Visit Provider Nurse Practitioner Family
DX: E88.01 Alpha-1-antitrypsin deficiency (principal)
CPT/HCPCS: 96365; J0256

== ENCOUNTER 2019-12-17 13:01 | Outpatient (CLI) | payer MEDICARE, BC, SELFPAY ==
[2019-12-17 13:06] VITALS: BMI 24.6
[2019-12-17 13:20] VITALS: BP 145/79; PULSE 78; RESP 20; TEMP 36.3; O2SAT 96
[2019-12-17 13:50] VITALS: BP 157/95; PULSE 79; RESP 20
[2019-12-17 14:20] VITALS: BP 150/76; PULSE 71; RESP 20
[2019-12-17 14:50] VITALS: BP 158/75; PULSE 78; RESP 20
== END 2019-12-17 15:20 | disposition home or self-care (01) ==
LOC: INF 13:01
PROVIDERS: PCP Internal Medicine Adolescent Medicine; Visit Provider Nurse Practitioner Family
DX: E88.01 Alpha-1-antitrypsin deficiency (principal); R79.89 Other specified abnormal findings of blood chemistry
CPT/HCPCS: 82728; 96365; J0256

== ENCOUNTER 2019-12-24 11:52 | Outpatient (CLI) | payer MEDICARE, BC, SELFPAY ==
[2019-12-24 13:00] VITALS: BP 136/66; PULSE 74; RESP 20; TEMP 36.8; O2SAT 95
[2019-12-24 13:30] VITALS: BP 140/79; PULSE 72; RESP 20; O2SAT 95
[2019-12-24 14:00] VITALS: BP 132/69; PULSE 68; RESP 18; O2SAT 96
[2019-12-24 14:30] VITALS: BP 139/72; PULSE 69; RESP 18; TEMP 36.9; O2SAT 95
== END 2019-12-24 14:35 | disposition home or self-care (01) ==
LOC: INF 11:52
PROVIDERS: Visit Provider Internal Medicine Adolescent Medicine
DX: E88.01 Alpha-1-antitrypsin deficiency (principal)
CPT/HCPCS: 96365; 99195; J0256

== ENCOUNTER 2019-12-31 12:05 | Outpatient (CLI) | payer MEDICARE, BC, SELFPAY ==
[2019-12-31 12:14] VITALS: BMI 24.6
[2019-12-31 12:24] LABS: Basophils % 0.3 % (0.1-2.0); Eosinophils # 0.4 K/mm3 (0.0-0.4); Eosinophils % 5.1 % (0.1-12.0); Hematocrit 42.8 % (42.0-52.0); Hemoglobin 12.7 g/dL (14.1-18.0); Lymphocytes # 2.1 K/mm3 (0.7-4.5); Mean Corpuscular HGB Conc 29.7 g/dL (31.8-35.4); Mean Corpuscular Hemoglobin 20.3 pg (27.0-31.2); Mean Corpuscular Volume 68.2 fl (80-94); Mean Platelet Volume 7.6 fl (7.4-10.4); Monocytes # 0.6 K/mm3 (0.1-1.0); Monocytes % 8.5 % (1.7-9.3); Neutrophils # 4.4 K/mm3 (1.8-7.8); Neutrophils % 58.1 % (37.0-80.0); Platelet Count 207 K/mm3 (142-424); Red Blood Count 6.28 M/mm3 (4.60-6.20); Red Cell Distribution Width 16.7 % (11.5-17.5); White Blood Count 7.6 K/mm3 (4.8-10.8)
[2019-12-31 12:32] LABS: Alanine Aminotransferase 22 U/L (12-78); Albumin Level 4.1 g/dl (3.5-5.0); Albumin/Globulin Ratio 1.4 (1.1-1.8); Alkaline Phosphatase 125 U/L (38-126); Anion Gap 12.1 mEq/L (5-15); Aspartate Amino Transferase 32 U/L (17-59); Bilirubin,Direct 0.1 mg/dl (0.0-0.4); Bilirubin,Indirect 1.2 mg/dL (0.0-0.9); Bilirubin,Total 1.3 mg/dl (0.2-1.3); Bilirubin,Unconjugated 1.2 mg/dL (0.0-1.1); Blood Urea Nitrogen 19 mg/dl (9-20); Carbon Dioxide 27 mmol/L (22.0-30.0); Chloride 105 mmol/L (98-107); Creatinine Clearance Estimated 62 mL/min (50-200); Estimated Glomerular Filt Rate 108 ml/min (>60); GFR (African American) 131 ML/MIN (>60); Glucose 100 mg/dl (74-100); Potassium 4.1 mmoL/L (3.5-5.1); Sodium 140 mmol/L (136-145); Total Protein,Serum 7.1 g/dl (6.3-8.2)
[2019-12-31 12:40] VITALS: BP 135/85; PULSE 74; RESP 20; TEMP 36.6; O2SAT 96
[2019-12-31 13:10] VITALS: BP 141/70; PULSE 77; RESP 20
[2019-12-31 13:15] LABS: Ferritin 72.7 ng/ml (17.9-464)
[2019-12-31 13:40] VITALS: BP 159/60; PULSE 89; RESP 18
== END 2019-12-31 14:05 | disposition home or self-care (01) ==
LOC: INF 12:11
PROVIDERS: Visit Provider Nurse Practitioner Family
DX: E88.01 Alpha-1-antitrypsin deficiency (principal); R79.89 Other specified abnormal findings of blood chemistry
CPT/HCPCS: 80053; 80076; 82728; 85025; 96365; J0256

== ENCOUNTER 2020-01-07 13:15 | Outpatient (CLI) | payer MEDICARE, BC, SELFPAY ==
[2020-01-07 13:45] VITALS: BP 154/77; PULSE 74; RESP 20; O2SAT 93
[2020-01-07 14:30] VITALS: BP 129/62; PULSE 81; RESP 20
[2020-01-07 15:15] VITALS: BP 133/76; PULSE 73; RESP 20
== END 2020-01-07 15:45 | disposition home or self-care (01) ==
LOC: INF 13:19
PROVIDERS: Visit Provider Nurse Practitioner Family
DX: E88.01 Alpha-1-antitrypsin deficiency (principal)
CPT/HCPCS: 96365; J0256

== ENCOUNTER 2020-01-13 11:55 | Outpatient (CLI) | payer MEDICARE, BC, SELFPAY ==
[2020-01-13 12:13] VITALS: BMI 24.6
[2020-01-13 12:30] VITALS: BP 123/69; PULSE 66; RESP 20; TEMP 36.8; O2SAT 90
[2020-01-13 13:15] VITALS: BP 138/66; PULSE 80; RESP 18
[2020-01-13 13:38] LABS: Ferritin 88.6 ng/ml (17.9-464)
[2020-01-13 14:00] VITALS: BP 127/67; PULSE 83; RESP 18
== END 2020-01-13 15:40 | disposition home or self-care (01) ==
LOC: INF 12:12
PROVIDERS: Visit Provider Nurse Practitioner Family
DX: E88.01 Alpha-1-antitrypsin deficiency (principal); R79.89 Other specified abnormal findings of blood chemistry
CPT/HCPCS: 82728; 96365; J0256

== ENCOUNTER 2020-01-21 12:15 | Outpatient (CLI) | payer MEDICARE, BC, SELFPAY ==
[2020-01-21 12:54] VITALS: BP 159/82; PULSE 71; RESP 20; TEMP 36.6; O2SAT 96
[2020-01-21 15:15] VITALS: BP 134/66; PULSE 89; RESP 20
== END 2020-01-21 15:15 | disposition home or self-care (01) ==
LOC: INF 12:15
PROVIDERS: Visit Provider Nurse Practitioner Family
DX: E88.01 Alpha-1-antitrypsin deficiency (principal)
CPT/HCPCS: 96365; 99195; J0256

== ENCOUNTER 2020-01-27 14:00 | Outpatient (CLI) | payer MEDICARE, BC, SELFPAY ==
[2020-01-27 14:02] VITALS: BMI 24.6
[2020-01-27 14:11] VITALS: BP 143/69; PULSE 75; RESP 22; TEMP 36.4; O2SAT 94
[2020-01-27 14:15] VITALS: BP 148/67; PULSE 77; RESP 22
[2020-01-27 16:11] LABS: Ferritin 78.9 ng/ml (17.9-464)
== END 2020-01-27 16:15 | disposition home or self-care (01) ==
LOC: INF 14:00
PROVIDERS: PCP Internal Medicine Adolescent Medicine; Visit Provider Nurse Practitioner Family
DX: E88.01 Alpha-1-antitrypsin deficiency (principal); R79.89 Other specified abnormal findings of blood chemistry
CPT/HCPCS: 82728; 96365; J0256

== ENCOUNTER 2020-02-04 12:53 | Outpatient (CLI) | payer MEDICARE, BC, SELFPAY ==
[2020-02-04 13:10] VITALS: BP 150/90; PULSE 55; RESP 20; TEMP 36.9; O2SAT 95
[2020-02-04 14:30] VITALS: BP 145/74; PULSE 68; RESP 20; TEMP 36.9; O2SAT 95
== END 2020-02-04 14:20 | disposition home or self-care (01) ==
LOC: INF 12:53
PROVIDERS: Visit Provider Nurse Practitioner Family
DX: E88.01 Alpha-1-antitrypsin deficiency (principal)
CPT/HCPCS: 96365; J0256

== ENCOUNTER 2020-02-11 12:35 | Outpatient (CLI) | payer MEDICARE, BC, SELFPAY ==
[2020-02-11 13:03] VITALS: BP 151/83; PULSE 84; RESP 22; O2SAT 96
[2020-02-11 15:10] VITALS: BP 137/81; PULSE 83; RESP 20
== END 2020-02-11 15:10 | disposition home or self-care (01) ==
LOC: INF 12:38
PROVIDERS: Visit Provider Nurse Practitioner Family
DX: E88.01 Alpha-1-antitrypsin deficiency (principal)
CPT/HCPCS: 96365; J0256

== ENCOUNTER 2020-02-16 13:06 | Outpatient (CLI) | payer MEDICARE, BC, SELFPAY ==
[2020-02-16 13:17] VITALS: BMI 24.6
[2020-02-16 13:36] VITALS: BP 156/81; PULSE 82; RESP 20; O2SAT 96
[2020-02-16 14:35] LABS: Ferritin 96.4 ng/ml (17.9-464)
[2020-02-16 15:05] VITALS: BP 148/78; PULSE 80; RESP 20
== END 2020-02-16 15:05 | disposition home or self-care (01) ==
LOC: INF 13:14
PROVIDERS: Visit Provider Nurse Practitioner Family
DX: E88.01 Alpha-1-antitrypsin deficiency (principal); R79.89 Other specified abnormal findings of blood chemistry
CPT/HCPCS: 82728; 96365; J0256

== ENCOUNTER 2020-02-25 13:15 | Outpatient (CLI) | payer MEDICARE, BC, SELFPAY ==
[2020-02-25 13:15] VITALS: BP 157/94; PULSE 68; RESP 20; TEMP 36.7; O2SAT 98
[2020-02-25 15:36] VITALS: BP 145/82; PULSE 68; RESP 20; TEMP 36.9; O2SAT 95
== END 2020-02-25 15:39 | disposition home or self-care (01) ==
LOC: INF 13:22
PROVIDERS: Visit Provider Internal Medicine Adolescent Medicine
DX: E88.01 Alpha-1-antitrypsin deficiency (principal); R79.89 Other specified abnormal findings of blood chemistry
CPT/HCPCS: 96365; 99195; J0256

== ENCOUNTER 2020-03-03 12:10 | Outpatient (CLI) | payer MEDICARE, BC, SELFPAY ==
[2020-03-03 12:16] VITALS: BMI 24.6
[2020-03-03 12:39] VITALS: BP 138/82; PULSE 81; RESP 20; O2SAT 96
[2020-03-03 13:16] LABS: Ferritin 57.5 ng/ml (17.9-464)
[2020-03-03 14:05] VITALS: BP 141/67; PULSE 77; RESP 18
== END 2020-03-03 14:05 | disposition home or self-care (01) ==
LOC: INF 12:13
PROVIDERS: Visit Provider Nurse Practitioner Family
DX: E88.01 Alpha-1-antitrypsin deficiency (principal); R79.89 Other specified abnormal findings of blood chemistry
CPT/HCPCS: 82728; 96365; J0256

== ENCOUNTER 2020-03-10 14:15 | Outpatient (CLI) | payer MEDICARE, BC, SELFPAY ==
[2020-03-10 14:35] VITALS: BP 153/78; PULSE 80; RESP 20; TEMP 36.4; O2SAT 95
[2020-03-10 15:05] VITALS: BP 140/78; PULSE 77; RESP 20
[2020-03-10 15:35] VITALS: BP 140/77; PULSE 83; RESP 20
== END 2020-03-10 15:54 | disposition home or self-care (01) ==
LOC: INF 14:18
PROVIDERS: Visit Provider Nurse Practitioner Family
DX: E88.01 Alpha-1-antitrypsin deficiency (principal); R79.89 Other specified abnormal findings of blood chemistry
CPT/HCPCS: 96365; J0256

== ENCOUNTER 2020-03-15 13:25 | Outpatient (CLI) | payer MEDICARE, BC, SELFPAY ==
[2020-03-15 14:00] VITALS: BP 160/81; PULSE 84; RESP 22; TEMP 36.6; O2SAT 94
[2020-03-15 16:26] VITALS: BP 151/75; PULSE 83; RESP 20
== END 2020-03-15 16:26 | disposition home or self-care (01) ==
LOC: INF 13:34
PROVIDERS: Visit Provider Nurse Practitioner Family
DX: E88.01 Alpha-1-antitrypsin deficiency (principal)
CPT/HCPCS: 96365; J0256

== ENCOUNTER 2020-03-22 14:00 | Outpatient (CLI) | payer MEDICARE, BC, SELFPAY ==
[2020-03-22 14:40] VITALS: BP 172/92; PULSE 78; RESP 20; TEMP 36.6; O2SAT 94
[2020-03-22 15:40] VITALS: BP 127/78; PULSE 73; RESP 20
[2020-03-22 16:00] VITALS: BP 140/79; PULSE 77; RESP 20
== END 2020-03-22 16:30 | disposition home or self-care (01) ==
LOC: INF 14:09
PROVIDERS: Visit Provider Nurse Practitioner Family
DX: E88.01 Alpha-1-antitrypsin deficiency (principal)
CPT/HCPCS: 96365; J0256

== ENCOUNTER 2020-03-31 13:24 | Outpatient (CLI) | payer MEDICARE, BC, SELFPAY ==
[2020-03-31 13:26] VITALS: BMI 24.3
[2020-03-31 13:49] LABS: Basophils # 0.1 K/mm3 (0-0.2); Basophils % 0.6 % (0.1-2.0); Eosinophils # 0.3 K/mm3 (0.0-0.4); Hemoglobin 13.1 g/dL (14.1-18.0); Lymphocytes % 24.1 % (10-50); Mean Corpuscular HGB Conc 31.1 g/dL (31.8-35.4); Mean Corpuscular Hemoglobin 20.7 pg (27.0-31.2); Mean Corpuscular Volume 66.7 fl (80-94); Mean Platelet Volume 8.2 fl (7.4-10.4); Monocytes # 0.7 K/mm3 (0.1-1.0); Monocytes % 8.2 % (1.7-9.3); Neutrophils # 5.3 K/mm3 (1.8-7.8); Neutrophils % 63.1 % (37.0-80.0); Platelet Count 220 K/mm3 (142-424); Red Blood Count 6.29 M/mm3 (4.60-6.20); Red Cell Distribution Width 16.6 % (11.5-17.5); White Blood Count 8.3 K/mm3 (4.8-10.8)
[2020-03-31 13:58] LABS: Chloride 103 mmol/L (98-107); Sodium 139 mmol/L (136-145)
[2020-03-31 13:59] LABS: Potassium 4.1 mmoL/L (3.5-5.1)
[2020-03-31 14:00] VITALS: BP 150/78; PULSE 68; RESP 20; TEMP 36.9; O2SAT 95
[2020-03-31 14:01] LABS: Alanine Aminotransferase 20 U/L (12-78); Alkaline Phosphatase 110 U/L (38-126); Anion Gap 10.1 mEq/L (5-15); Aspartate Amino Transferase 31 U/L (17-59); Blood Urea Nitrogen 20 mg/dl (9-20); Carbon Dioxide 30 mmol/L (22.0-30.0); Creatinine Clearance Estimated 61 mL/min (50-200); Estimated Glomerular Filt Rate 129 ml/min (>60); GFR (African American) 156 ML/MIN (>60)
[2020-03-31 14:02] LABS: Albumin Level 4.2 g/dl (3.5-5.0); Albumin/Globulin Ratio 1.3 (1.1-1.8); Calcium 9.5 mg/dl (8.4-10.2); Globulin 3.3 g/dL (1.3-3.2); Glucose 97 mg/dl (74-100); Total Protein,Serum 7.5 g/dl (6.3-8.2)
[2020-03-31 14:12] LABS: Alanine Aminotransferase 20 U/L (12-78); Albumin Level 4.1 g/dl (3.5-5.0); Alkaline Phosphatase 104 U/L (38-126); Aspartate Amino Transferase 30 U/L (17-59); Bilirubin,Direct 0.1 mg/dl (0.0-0.4); Bilirubin,Indirect 0.8 mg/dL (0.0-0.9); Bilirubin,Total 0.9 mg/dl (0.2-1.3); Bilirubin,Unconjugated 0.8 mg/dL (0.0-1.1); Total Protein,Serum 7.2 g/dl (6.3-8.2)
[2020-03-31 14:48] LABS: Ferritin 57.8 ng/ml (17.9-464)
[2020-03-31 15:15] VITALS: BP 156/91; PULSE 68; RESP 20; TEMP 36.9; O2SAT 95
== END 2020-03-31 15:32 | disposition home or self-care (01) ==
LOC: INF 13:24
PROVIDERS: Visit Provider Nurse Practitioner Family
DX: E88.01 Alpha-1-antitrypsin deficiency (principal); R79.89 Other specified abnormal findings of blood chemistry
CPT/HCPCS: 80053; 80076; 82728; 85025; 96365; J0256

== ENCOUNTER 2020-04-07 14:38 | Outpatient (CLI) | payer MEDICARE, BC, SELFPAY ==
[2020-04-07 15:00] VITALS: BP 149/75; PULSE 75; RESP 20; TEMP 36.6; O2SAT 96
[2020-04-07 17:00] VITALS: BP 145/85; PULSE 89; RESP 20
== END 2020-04-07 17:00 | disposition home or self-care (01) ==
LOC: INF 14:38
PROVIDERS: Visit Provider Nurse Practitioner Family
DX: E88.01 Alpha-1-antitrypsin deficiency (principal)
CPT/HCPCS: 96365; J0256

== ENCOUNTER 2020-04-14 12:50 | Outpatient (CLI) | payer MEDICARE, BC, SELFPAY ==
[2020-04-14 13:40] VITALS: BP 140/81; PULSE 75; RESP 20; TEMP 36.9; O2SAT 95
[2020-04-14 15:00] VITALS: BP 150/74; PULSE 75; RESP 20; TEMP 36.9; O2SAT 95
== END 2020-04-14 15:00 | disposition home or self-care (01) ==
LOC: INF 12:57
PROVIDERS: Visit Provider Nurse Practitioner Family
DX: E88.01 Alpha-1-antitrypsin deficiency (principal)
CPT/HCPCS: 96365; J0256

== ENCOUNTER 2020-04-21 13:05 | Outpatient (CLI) | payer MEDICARE, BC, SELFPAY ==
[2020-04-21 13:30] VITALS: BP 170/94; PULSE 71; RESP 20; TEMP 36.1; O2SAT 96
[2020-04-21 14:00] VITALS: BP 174/94; PULSE 72; RESP 20
[2020-04-21 14:30] VITALS: BP 146/72; PULSE 74; RESP 20
[2020-04-21 15:00] VITALS: BP 137/67; PULSE 76; RESP 20
== END 2020-04-21 16:00 | disposition home or self-care (01) ==
LOC: INF 13:09
PROVIDERS: Visit Provider Internal Medicine Adolescent Medicine
DX: E88.01 Alpha-1-antitrypsin deficiency (principal)
CPT/HCPCS: 96365; J0256

== ENCOUNTER 2020-04-27 14:25 | Outpatient (CLI) | payer MEDICARE, BC, SELFPAY ==
[2020-04-27 14:51] VITALS: BP 143/79; PULSE 82; RESP 18; TEMP 36.6; O2SAT 94
[2020-04-27 15:21] VITALS: BP 140/77; PULSE 84; RESP 18; O2SAT 94
[2020-04-27 15:51] VITALS: BP 146/74; PULSE 81; RESP 18; O2SAT 93
[2020-04-27 16:14] VITALS: BP 139/78; PULSE 82; RESP 18; O2SAT 94
[2020-04-27 16:49] VITALS: BP 148/75; PULSE 74; RESP 22; O2SAT 98
== END 2020-04-27 16:49 | disposition home or self-care (01) ==
LOC: INF 14:25
PROVIDERS: Visit Provider Nurse Practitioner Family
DX: E88.01 Alpha-1-antitrypsin deficiency (principal)
CPT/HCPCS: 96365; J0256

== ENCOUNTER 2020-05-08 11:20 | Outpatient (CLI) | payer MEDICARE, BC, SELFPAY ==
[2020-05-08 11:36] VITALS: BMI 24.3
[2020-05-08 11:45] VITALS: BP 163/89; PULSE 82; RESP 20; TEMP 36.4; O2SAT 95
[2020-05-08 13:12] LABS: Ferritin 58.7 ng/ml (17.9-464)
[2020-05-08 13:40] VITALS: BP 139/73; PULSE 76; RESP 20
== END 2020-05-08 13:40 | disposition home or self-care (01) ==
LOC: INF 11:22
PROVIDERS: Visit Provider Nurse Practitioner Family
DX: E88.01 Alpha-1-antitrypsin deficiency (principal); R79.89 Other specified abnormal findings of blood chemistry
CPT/HCPCS: 82728; 96365; J0256

== ENCOUNTER 2020-05-12 13:44 | Outpatient (CLI) | payer MEDICARE, BC, SELFPAY ==
[2020-05-12 14:25] VITALS: BP 155/87; PULSE 73; RESP 20; TEMP 36.4; O2SAT 94
[2020-05-12 16:35] VITALS: BP 153/67; PULSE 78; RESP 18
== END 2020-05-12 16:35 | disposition home or self-care (01) ==
LOC: INF 13:44
PROVIDERS: Visit Provider Nurse Practitioner Family
DX: E88.01 Alpha-1-antitrypsin deficiency (principal)
CPT/HCPCS: 96365; J0256

== ENCOUNTER 2020-05-18 11:30 | Outpatient (CLI) | payer MEDICARE, BC, SELFPAY ==
[2020-05-18 12:15] VITALS: BP 153/87; PULSE 68; RESP 18; TEMP 36.9; O2SAT 95
[2020-05-18 12:45] VITALS: BP 145/78; PULSE 75; RESP 20; TEMP 36.9; O2SAT 95
[2020-05-18 14:00] VITALS: BP 150/84; PULSE 68; RESP 20; TEMP 36.9; O2SAT 95
== END 2020-05-18 14:00 | disposition home or self-care (01) ==
LOC: INF 11:39
PROVIDERS: Visit Provider Nurse Practitioner Family
DX: E88.01 Alpha-1-antitrypsin deficiency (principal); R79.89 Other specified abnormal findings of blood chemistry
CPT/HCPCS: 96365; J0256

== ENCOUNTER 2020-05-26 16:10 | Outpatient (CLI) | payer MEDICARE, BC, SELFPAY ==
[2020-05-26 14:10] VITALS: BP 165/89; PULSE 68; RESP 20; TEMP 36.9; O2SAT 95
[2020-05-26 15:10] VITALS: BP 154/74; PULSE 78; RESP 20; TEMP 36.9; O2SAT 95
[2020-05-26 16:10] VITALS: BP 153/74; PULSE 68; RESP 20; TEMP 36.9
== END 2020-05-26 16:40 | disposition home or self-care (01) ==
LOC: INF 16:10
PROVIDERS: Visit Provider Nurse Practitioner Family
DX: E88.01 Alpha-1-antitrypsin deficiency (principal)
CPT/HCPCS: 96365; 96366; J0256

== ENCOUNTER 2020-06-02 12:40 | Outpatient (CLI) | payer MEDICARE, BC, SELFPAY ==
[2020-06-02 12:56] VITALS: BMI 24.3
[2020-06-02 13:35] VITALS: BP 160/91; PULSE 73; RESP 20; TEMP 36.5; O2SAT 94
[2020-06-02 14:13] LABS: Ferritin 62.8 ng/ml (17.9-464)
[2020-06-02 15:05] VITALS: BP 179/94; PULSE 74; RESP 20
== END 2020-06-02 15:40 | disposition home or self-care (01) ==
LOC: INF 12:45
PROVIDERS: Visit Provider Nurse Practitioner Family
DX: E88.01 Alpha-1-antitrypsin deficiency (principal); R79.89 Other specified abnormal findings of blood chemistry
CPT/HCPCS: 82728; 96365; J0256

== ENCOUNTER 2020-06-09 13:41 | Outpatient (CLI) | payer MEDICARE, BC, SELFPAY ==
[2020-06-09 14:10] VITALS: BP 176/93; PULSE 77; RESP 20; TEMP 36.4; O2SAT 93
[2020-06-09 15:30] VITALS: BP 190/88; PULSE 85; RESP 20
== END 2020-06-09 15:35 | disposition home or self-care (01) ==
LOC: INF 13:41
PROVIDERS: Visit Provider Nurse Practitioner Family
DX: E88.01 Alpha-1-antitrypsin deficiency (principal)
CPT/HCPCS: 96365

== ENCOUNTER 2020-06-15 14:29 | Outpatient (CLI) | payer MEDICARE, BC, SELFPAY ==
[2020-06-15 14:50] VITALS: BP 108/55; PULSE 84; RESP 20; TEMP 36.3; O2SAT 94
[2020-06-15 16:15] VITALS: BP 115/75; PULSE 80; RESP 18
== END 2020-06-15 16:15 | disposition home or self-care (01) ==
LOC: INF 14:30
PROVIDERS: Visit Provider Nurse Practitioner Family
DX: E88.01 Alpha-1-antitrypsin deficiency (principal)
CPT/HCPCS: 96365; J0256

== ENCOUNTER 2020-06-23 11:55 | Outpatient (CLI) | payer MEDICARE, BC, SELFPAY ==
[2020-06-23 12:30] VITALS: BP 142/73; PULSE 82; RESP 20; O2SAT 93
[2020-06-23 13:30] VITALS: BP 113/63; PULSE 80; RESP 20
[2020-06-23 13:50] VITALS: BP 129/64; PULSE 86; RESP 20
== END 2020-06-23 15:10 | disposition home or self-care (01) ==
LOC: INF 12:11
PROVIDERS: Visit Provider Nurse Practitioner Family
DX: E88.01 Alpha-1-antitrypsin deficiency (principal)
CPT/HCPCS: 96365; J0256

== ENCOUNTER 2020-06-30 12:20 | Outpatient (CLI) | payer MEDICARE, BC, SELFPAY ==
[2020-06-30 12:43] VITALS: BMI 24.6
[2020-06-30 13:11] LABS: Eosinophils # 0.3 K/mm3 (0.0-0.4); Eosinophils % 3.8 % (0.1-12.0); Mean Platelet Volume 7.8 fl (7.4-10.4); Monocytes # 0.6 K/mm3 (0.1-1.0)
[2020-06-30 13:15] LABS: Basophils % 0.3 % (0.1-2.0); Hematocrit 38.7 % (42.0-52.0); Hemoglobin 12.3 g/dL (14.1-18.0); Lymphocytes # 1.8 K/mm3 (0.7-4.5); Lymphocytes % 22.9 % (10-50); Mean Corpuscular HGB Conc 31.6 g/dL (31.8-35.4); Mean Corpuscular Hemoglobin 20.3 pg (27.0-31.2); Mean Corpuscular Volume 64.2 fl (80-94); Monocytes % 7.3 % (1.7-9.3); Neutrophils # 5.1 K/mm3 (1.8-7.8); Neutrophils % 65.7 % (37.0-80.0); Platelet Count 188 K/mm3 (142-424); Red Blood Count 6.04 M/mm3 (4.60-6.20); Red Cell Distribution Width 15.7 % (11.5-17.5); White Blood Count 7.8 K/mm3 (4.8-10.8)
[2020-06-30 13:17] LABS: Chloride 103 mmol/L (98-107); Sodium 137 mmol/L (136-145)
[2020-06-30 13:18] LABS: Potassium 4.1 mmoL/L (3.5-5.1)
[2020-06-30 13:20] LABS: Alanine Aminotransferase 26 U/L (12-78); Albumin Level 4.1 g/dl (3.5-5.0); Albumin/Globulin Ratio 1.5 (1.1-1.8); Alkaline Phosphatase 112 U/L (38-126); Anion Gap 10.1 mEq/L (5-15); Aspartate Amino Transferase 32 U/L (17-59); Bilirubin,Indirect 0.8 mg/dL (0.0-0.9); Bilirubin,Total 0.8 mg/dl (0.2-1.3); Bilirubin,Unconjugated 0.9 mg/dL (0.0-1.1); Blood Urea Nitrogen 22 mg/dl (9-20); Calcium 8.9 mg/dl (8.4-10.2); Carbon Dioxide 28 mmol/L (22.0-30.0); Creatinine Clearance Estimated 56 mL/min (50-200); Estimated Glomerular Filt Rate 64 ml/min (>60); GFR (African American) 78 ML/MIN (>60); Globulin 2.8 g/dL (1.3-3.2); Glucose 101 mg/dl (74-100); Total Protein,Serum 6.9 g/dl (6.3-8.2)
[2020-06-30 13:25] VITALS: BP 151/66; PULSE 65; RESP 20; TEMP 36.4; O2SAT 93
[2020-06-30 13:56] LABS: Ferritin 148 ng/ml (17.9-464)
[2020-06-30 14:25] VITALS: BP 119/59; PULSE 72; RESP 20
== END 2020-06-30 16:10 | disposition home or self-care (01) ==
LOC: INF 12:34
PROVIDERS: Internal Medicine Adolescent Medicine; Visit Provider Nurse Practitioner Family
DX: E88.01 Alpha-1-antitrypsin deficiency (principal); R79.89 Other specified abnormal findings of blood chemistry
CPT/HCPCS: 80053; 80076; 82728; 85025; 96365; J0256

== ENCOUNTER 2020-07-07 11:35 | Outpatient (CLI) | payer MEDICARE, BC, SELFPAY ==
[2020-07-07 12:20] VITALS: BP 122/67; PULSE 69; RESP 20
[2020-07-07 14:40] VITALS: BP 115/60; PULSE 68; RESP 20
== END 2020-07-07 14:45 | disposition home or self-care (01) ==
LOC: INF 11:41
PROVIDERS: Visit Provider Internal Medicine Adolescent Medicine
DX: E88.01 Alpha-1-antitrypsin deficiency (principal); R79.89 Other specified abnormal findings of blood chemistry
CPT/HCPCS: 96365; 96366; 99195; J0256

== ENCOUNTER 2020-07-13 13:40 | Outpatient (CLI) | payer MEDICARE, BC, SELFPAY ==
[2020-07-13 13:48] VITALS: BMI 24.6
[2020-07-13 14:20] VITALS: BP 185/89; PULSE 81; RESP 20; O2SAT 95
[2020-07-13 15:05] VITALS: BP 159/79; PULSE 68; RESP 18
[2020-07-13 15:45] LABS: Ferritin 101 ng/ml (17.9-464)
[2020-07-13 15:50] VITALS: BP 167/82; PULSE 70; RESP 20
== END 2020-07-13 16:30 | disposition home or self-care (01) ==
LOC: INF 13:46
PROVIDERS: Visit Provider Internal Medicine Adolescent Medicine
DX: R79.89 Other specified abnormal findings of blood chemistry; E88.01 Alpha-1-antitrypsin deficiency
CPT/HCPCS: 82728; 96365; J0256

== ENCOUNTER 2020-07-21 12:15 | Outpatient (CLI) | payer MEDICARE, BC, SELFPAY ==
[2020-07-21 12:34] VITALS: BMI 24.6
[2020-07-21 12:55] VITALS: BP 149/86; PULSE 82; RESP 20; TEMP 36.6; O2SAT 95
[2020-07-21 13:36] LABS: Ferritin 94.4 ng/ml (17.9-464)
[2020-07-21 14:30] VITALS: BP 132/66; PULSE 68; RESP 20
== END 2020-07-21 15:00 | disposition home or self-care (01) ==
LOC: INF 12:26
PROVIDERS: Visit Provider Internal Medicine Adolescent Medicine
DX: E88.01 Alpha-1-antitrypsin deficiency (principal); R79.89 Other specified abnormal findings of blood chemistry
CPT/HCPCS: 82728; 96365; J0256

== ENCOUNTER 2020-07-28 12:40 | Outpatient (CLI) | payer MEDICARE, BC, SELFPAY ==
[2020-07-28 13:40] VITALS: BP 147/88; PULSE 75; RESP 20; O2SAT 95
[2020-07-28 14:30] VITALS: BP 131/80; PULSE 81; RESP 18
[2020-07-28 15:00] VITALS: BP 148/63; PULSE 84; RESP 18
== END 2020-07-28 15:30 | disposition home or self-care (01) ==
LOC: INF 12:53
PROVIDERS: Visit Provider Internal Medicine Adolescent Medicine
DX: E88.01 Alpha-1-antitrypsin deficiency (principal); R79.89 Other specified abnormal findings of blood chemistry
CPT/HCPCS: 96365; 99195; J0256

== ENCOUNTER 2020-08-04 12:00 | Outpatient (CLI) | payer MEDICARE, BC, SELFPAY ==
[2020-08-04 12:00] VITALS: BMI 23.1
[2020-08-04 13:00] VITALS: BP 122/74; PULSE 78; RESP 20; TEMP 36.9; O2SAT 95
[2020-08-04 14:00] VITALS: BP 118/74; PULSE 68; RESP 20; TEMP 36.9; O2SAT 95
[2020-08-04 14:07] LABS: Ferritin 86.1 ng/ml (17.9-464)
[2020-08-04 14:45] VITALS: BP 122/74; PULSE 68; RESP 20; TEMP 36.9; O2SAT 95
== END 2020-08-04 15:00 | disposition home or self-care (01) ==
LOC: INF 12:49
PROVIDERS: Visit Provider Internal Medicine Adolescent Medicine
DX: E88.01 Alpha-1-antitrypsin deficiency (principal); R79.89 Other specified abnormal findings of blood chemistry
CPT/HCPCS: 82728; 96365; 96366; J0256

== ENCOUNTER 2020-08-11 12:05 | Outpatient (CLI) | payer MEDICARE, BC, SELFPAY ==
[2020-08-11 13:00] VITALS: BP 144/74; PULSE 66; RESP 20
[2020-08-11 14:10] VITALS: BP 154/82; PULSE 71; RESP 18
== END 2020-08-11 14:40 | disposition home or self-care (01) ==
LOC: INF 12:12
PROVIDERS: Visit Provider Internal Medicine Adolescent Medicine
DX: E88.01 Alpha-1-antitrypsin deficiency (principal)
CPT/HCPCS: 96365; 99195; J0256

== ENCOUNTER 2020-08-18 12:15 | Outpatient (CLI) | payer MEDICARE, BC, SELFPAY ==
[2020-08-18 12:25] VITALS: BMI 23.1
[2020-08-18 12:50] VITALS: BP 166/76; PULSE 77; RESP 20; TEMP 36.4; O2SAT 94
[2020-08-18 13:20] VITALS: BP 151/71; PULSE 66; RESP 18
[2020-08-18 13:50] VITALS: BP 125/68; PULSE 71; RESP 18
[2020-08-18 14:47] LABS: Ferritin 111 ng/ml (17.9-464)
== END 2020-08-18 15:00 | disposition home or self-care (01) ==
LOC: INF 12:22
PROVIDERS: Visit Provider Internal Medicine Adolescent Medicine
DX: E88.01 Alpha-1-antitrypsin deficiency (principal); R79.89 Other specified abnormal findings of blood chemistry
CPT/HCPCS: 82728; 96365; J0256

== ENCOUNTER 2020-08-25 11:50 | Outpatient (CLI) | payer MEDICARE, BC, SELFPAY ==
[2020-08-25 12:55] VITALS: BP 157/82; PULSE 82; RESP 20; O2SAT 95
[2020-08-25 14:00] VITALS: BP 171/98; PULSE 89; RESP 20
== END 2020-08-25 14:00 | disposition home or self-care (01) ==
LOC: INF 12:03
PROVIDERS: Visit Provider Internal Medicine Adolescent Medicine
DX: E88.01 Alpha-1-antitrypsin deficiency (principal)
CPT/HCPCS: 96365; 99195; J0256

== ENCOUNTER 2020-09-01 14:00 | Outpatient (CLI) | payer MEDICARE, BC, SELFPAY ==
[2020-09-01 14:19] VITALS: BMI 23.1
[2020-09-01 14:25] VITALS: BP 178/85; PULSE 70; RESP 18; O2SAT 96
[2020-09-01 15:25] VITALS: BP 162/75; PULSE 81; RESP 18
[2020-09-01 15:38] LABS: Ferritin 71.8 ng/ml (17.9-464)
== END 2020-09-01 15:50 | disposition home or self-care (01) ==
LOC: INF 14:16
PROVIDERS: Visit Provider Internal Medicine Adolescent Medicine
DX: E88.01 Alpha-1-antitrypsin deficiency (principal); R79.89 Other specified abnormal findings of blood chemistry
CPT/HCPCS: 82728; 96365; J0256

== ENCOUNTER 2020-09-07 14:01 | Outpatient (CLI) | payer MEDICARE, BC, SELFPAY ==
[2020-09-07 14:35] VITALS: BP 159/76; PULSE 69; RESP 20; O2SAT 93
[2020-09-07 15:20] VITALS: BP 135/66; PULSE 71; RESP 18
[2020-09-07 15:55] VITALS: BP 137/61; PULSE 69; RESP 18
== END 2020-09-07 16:45 | disposition home or self-care (01) ==
LOC: INF 14:01
PROVIDERS: Visit Provider Internal Medicine Adolescent Medicine
DX: E88.01 Alpha-1-antitrypsin deficiency (principal); R79.89 Other specified abnormal findings of blood chemistry
CPT/HCPCS: 96365; J0256

== ENCOUNTER 2020-09-15 13:30 | Outpatient (CLI) | payer MEDICARE, BC, SELFPAY ==
[2020-09-15 14:15] VITALS: BP 159/70; PULSE 75; RESP 20; TEMP 36.5; O2SAT 96
[2020-09-15 15:00] VITALS: BP 160/65; PULSE 80; RESP 18
[2020-09-15 15:45] VITALS: BP 147/72; PULSE 71; RESP 18
== END 2020-09-15 16:05 | disposition home or self-care (01) ==
LOC: INF 13:52
PROVIDERS: Visit Provider Internal Medicine Adolescent Medicine
DX: E88.01 Alpha-1-antitrypsin deficiency (principal)
CPT/HCPCS: 96365; J0256

== ENCOUNTER 2020-09-22 12:33 | Outpatient (CLI) | payer MEDICARE, BC, SELFPAY ==
[2020-09-22 12:50] VITALS: BP 152/76; PULSE 76; RESP 20; TEMP 36.9; O2SAT 95
[2020-09-22 13:30] VITALS: BP 145/74; PULSE 68; RESP 20; TEMP 36.9; O2SAT 95
[2020-09-22 14:23] VITALS: BP 148/82; PULSE 68; RESP 20
== END 2020-09-22 14:20 | disposition home or self-care (01) ==
LOC: INF 12:33
PROVIDERS: Visit Provider Nurse Practitioner Family
DX: E88.01 Alpha-1-antitrypsin deficiency (principal)
CPT/HCPCS: 96365; J0256

== ENCOUNTER 2020-09-29 13:40 | Outpatient (CLI) | payer MEDICARE, BC, SELFPAY ==
[2020-09-29 13:53] VITALS: BMI 23.1
[2020-09-29 14:20] LABS: Basophils % 0.5 % (0.1-2.0); Eosinophils # 0.2 K/mm3 (0.0-0.4); Eosinophils % 2.7 % (0.1-12.0); Hematocrit 35.8 % (42.0-52.0); Hemoglobin 11.6 g/dL (14.1-18.0); Lymphocytes # 1.9 K/mm3 (0.7-4.5); Lymphocytes % 24.7 % (10-50); Mean Corpuscular HGB Conc 32.5 g/dL (31.8-35.4); Mean Corpuscular Volume 64.7 fl (80-94); Mean Platelet Volume 7.7 fl (7.4-10.4); Monocytes # 0.6 K/mm3 (0.1-1.0); Monocytes % 7.3 % (1.7-9.3); Neutrophils # 5.1 K/mm3 (1.8-7.8); Neutrophils % 64.8 % (37.0-80.0); Platelet Count 172 K/mm3 (142-424); Red Blood Count 5.53 M/mm3 (4.60-6.20); White Blood Count 7.9 K/mm3 (4.8-10.8)
[2020-09-29 14:30] VITALS: BP 164/97; PULSE 72; RESP 20; O2SAT 95
[2020-09-29 14:39] LABS: Chloride 103 mmol/L (98-107)
[2020-09-29 14:40] LABS: Sodium 140 mmol/L (136-145)
[2020-09-29 14:42] LABS: Alanine Aminotransferase 21 U/L (12-78); Aspartate Amino Transferase 34 U/L (17-59); Bilirubin,Unconjugated 0.8 mg/dL (0.0-1.1); Blood Urea Nitrogen 20 mg/dl (9-20); Carbon Dioxide 29 mmol/L (22.0-30.0); Creatinine Clearance Estimated 58 mL/min (50-200); Estimated Glomerular Filt Rate 72 ml/min (>60); GFR (African American) 87 ML/MIN (>60)
[2020-09-29 14:43] LABS: Albumin/Globulin Ratio 1.4 (1.1-1.8); Alkaline Phosphatase 112 U/L (38-126); Bilirubin,Direct 0.3 mg/dl (0.0-0.4); Bilirubin,Indirect 0.8 mg/dL (0.0-0.9); Bilirubin,Total 1.1 mg/dl (0.2-1.3); Calcium 8.7 mg/dl (8.4-10.2); Globulin 2.8 g/dL (1.3-3.2); Glucose 94 mg/dl (74-100); Total Protein,Serum 6.8 g/dl (6.3-8.2)
[2020-09-29 15:00] VITALS: BP 143/73; PULSE 73; RESP 18
[2020-09-29 15:18] LABS: Ferritin 65.2 ng/ml (17.9-464)
[2020-09-29 15:30] VITALS: BP 155/78; PULSE 71; RESP 18
== END 2020-09-29 16:40 | disposition home or self-care (01) ==
LOC: INF 13:49
PROVIDERS: Visit Provider Internal Medicine Adolescent Medicine
DX: E88.01 Alpha-1-antitrypsin deficiency (principal); R79.89 Other specified abnormal findings of blood chemistry
CPT/HCPCS: 80053; 80076; 82728; 85025; 96365; J0256

== ENCOUNTER 2020-10-06 11:10 | Outpatient (CLI) | payer MEDICARE, BC, SELFPAY ==
[2020-10-06 12:20] VITALS: BP 148/84; PULSE 67; RESP 18
[2020-10-06 13:25] VITALS: BP 143/72; PULSE 90; RESP 18
== END 2020-10-06 14:10 | disposition home or self-care (01) ==
LOC: INF 11:17
PROVIDERS: Visit Provider Nurse Practitioner Family
DX: E88.01 Alpha-1-antitrypsin deficiency (principal)
CPT/HCPCS: 96365; 99195; J0256

== ENCOUNTER 2020-10-13 13:09 | Outpatient (CLI) | payer MEDICARE, BC, SELFPAY ==
[2020-10-13 13:14] VITALS: BMI 23.1
[2020-10-13 13:40] VITALS: BP 160/82; PULSE 75; RESP 20; TEMP 36.4; O2SAT 96
[2020-10-13 14:10] VITALS: BP 152/69; PULSE 74; RESP 18; O2SAT 96
[2020-10-13 14:27] LABS: Ferritin 57.1 ng/ml (17.9-464)
[2020-10-13 15:05] VITALS: BP 140/74; PULSE 79; RESP 18; TEMP 36.4; O2SAT 97
== END 2020-10-13 15:20 | disposition home or self-care (01) ==
LOC: INF 13:09
PROVIDERS: Visit Provider Nurse Practitioner Family
DX: E88.01 Alpha-1-antitrypsin deficiency (principal); R79.89 Other specified abnormal findings of blood chemistry
CPT/HCPCS: 82728; 96365; 96366; J0256

== ENCOUNTER 2020-10-20 13:10 | Outpatient (CLI) | payer MEDICARE, BC, SELFPAY ==
[2020-10-20 13:50] VITALS: BP 161/77; PULSE 66; RESP 20; O2SAT 97
[2020-10-20 15:10] VITALS: BP 147/64; PULSE 69; RESP 18
== END 2020-10-20 15:40 | disposition home or self-care (01) ==
LOC: INF 13:16
PROVIDERS: Visit Provider Internal Medicine Adolescent Medicine
DX: E88.01 Alpha-1-antitrypsin deficiency (principal)
CPT/HCPCS: 96365; J0256

== ENCOUNTER 2020-10-27 10:35 | Outpatient (CLI) | payer MEDICARE, BC, SELFPAY ==
[2020-10-27 11:12] VITALS: BP 163/83; PULSE 67; RESP 20; O2SAT 98
[2020-10-27 12:12] VITALS: BP 155/77; PULSE 71; RESP 18
== END 2020-10-27 12:40 | disposition home or self-care (01) ==
LOC: INF 10:43
PROVIDERS: Visit Provider Internal Medicine Adolescent Medicine
DX: E88.01 Alpha-1-antitrypsin deficiency (principal)
CPT/HCPCS: 96365; J0256

== ENCOUNTER 2020-11-03 12:15 | Outpatient (CLI) | payer MEDICARE, BC, SELFPAY ==
[2020-11-03 12:23] VITALS: BMI 23.1
[2020-11-03 12:50] VITALS: BP 143/89; PULSE 72; RESP 18; O2SAT 94
[2020-11-03 13:20] VITALS: BP 144/73; PULSE 75; RESP 18
[2020-11-03 13:55] VITALS: BP 127/68; PULSE 76; RESP 18
== END 2020-11-03 15:30 | disposition home or self-care (01) ==
LOC: INF 12:19
PROVIDERS: Visit Provider Internal Medicine Adolescent Medicine
DX: E88.01 Alpha-1-antitrypsin deficiency (principal); R79.89 Other specified abnormal findings of blood chemistry
CPT/HCPCS: 82728; 96365; J0256

== ENCOUNTER 2020-11-10 13:05 | Outpatient (CLI) | payer MEDICARE, BC, SELFPAY ==
[2020-11-10 13:30] VITALS: BP 130/69; PULSE 73; RESP 20; TEMP 36.2; O2SAT 95
[2020-11-10 14:05] VITALS: BP 145/72; PULSE 75; RESP 18
[2020-11-10 14:40] VITALS: BP 131/67; PULSE 84; RESP 18
== END 2020-11-10 15:25 | disposition home or self-care (01) ==
LOC: INF 13:08
PROVIDERS: Visit Provider Internal Medicine Adolescent Medicine
DX: E88.01 Alpha-1-antitrypsin deficiency (principal)
CPT/HCPCS: 96365; J0256

== ENCOUNTER 2020-11-17 11:24 | Outpatient (CLI) | payer MEDICARE, BC, SELFPAY ==
[2020-11-17 12:00] VITALS: BP 146/70; PULSE 68; RESP 20; TEMP 36.9; O2SAT 95
[2020-11-17 13:00] VITALS: BP 158/84; PULSE 69; RESP 20; TEMP 36.9; O2SAT 95
[2020-11-17 14:00] VITALS: BP 158/84; PULSE 69; RESP 20; TEMP 36.9; O2SAT 95
== END 2020-11-17 14:00 | disposition home or self-care (01) ==
LOC: INF 11:26
PROVIDERS: PCP Internal Medicine Adolescent Medicine; Visit Provider Internal Medicine Adolescent Medicine
DX: E88.01 Alpha-1-antitrypsin deficiency (principal)
CPT/HCPCS: 96365; J0256

== ENCOUNTER 2020-11-28 10:52 | Outpatient (CLI) | payer MEDICARE, BC, SELFPAY ==
[2020-11-28 11:20] VITALS: BP 149/76; PULSE 67; RESP 20; O2SAT 96
[2020-11-28 13:15] VITALS: BP 134/68; PULSE 74; RESP 20
== END 2020-11-28 13:15 | disposition home or self-care (01) ==
LOC: INF 10:53
PROVIDERS: PCP Internal Medicine Adolescent Medicine; Visit Provider Internal Medicine Adolescent Medicine
DX: E88.01 Alpha-1-antitrypsin deficiency (principal)
CPT/HCPCS: 96365; J0256

== ENCOUNTER 2020-12-01 10:42 | Outpatient (CLI) | payer MEDICARE, BC, SELFPAY ==
[2020-12-01 11:01] VITALS: BMI 24.6
[2020-12-01 11:57] VITALS: BP 142/70; PULSE 68; RESP 20; TEMP 36.9; O2SAT 95
[2020-12-01 12:43] LABS: Ferritin 102 ng/ml (17.9-464)
[2020-12-01 13:00] VITALS: BP 127/62; PULSE 73; RESP 20; TEMP 36.9; O2SAT 95
[2020-12-01 14:30] VITALS: BP 127/62; PULSE 73; RESP 20; TEMP 36.9; O2SAT 95
== END 2020-12-01 14:30 | disposition home or self-care (01) ==
LOC: INF 10:44
PROVIDERS: PCP Internal Medicine Adolescent Medicine; Visit Provider Internal Medicine Adolescent Medicine
DX: R79.89 Other specified abnormal findings of blood chemistry (principal); E88.01 Alpha-1-antitrypsin deficiency
CPT/HCPCS: 82728; 96365; 96366; J0256

== ENCOUNTER 2020-12-08 11:57 | Outpatient (CLI) | payer MEDICARE, BC, SELFPAY ==
[2020-12-08 12:00] VITALS: BP 138/88; PULSE 75; RESP 20; TEMP 36.9; O2SAT 95
[2020-12-08 13:00] VITALS: BP 122/74; PULSE 68; RESP 20; TEMP 36.9; O2SAT 95
[2020-12-08 14:00] VITALS: BP 128/74; PULSE 68; RESP 20; TEMP 36.9; O2SAT 95
[2020-12-08 14:30] VITALS: BP 144/74; PULSE 68; RESP 20; TEMP 36.9; O2SAT 95
== END 2020-12-08 14:30 | disposition home or self-care (01) ==
LOC: INF 11:58
PROVIDERS: PCP Internal Medicine Adolescent Medicine; Visit Provider Internal Medicine Adolescent Medicine
DX: E88.01 Alpha-1-antitrypsin deficiency (principal)
CPT/HCPCS: 96365; 96366; 99195; J0256

== ENCOUNTER 2020-12-18 11:10 | Outpatient (CLI) | payer MEDICARE, BC, SELFPAY ==
[2020-12-18 11:10] VITALS: BMI 23.4
[2020-12-18 12:30] VITALS: BP 128/75; PULSE 68; RESP 20; TEMP 36.9; O2SAT 95
[2020-12-18 12:44] LABS: Ferritin 67.5 ng/ml (17.9-464)
[2020-12-18 13:30] VITALS: BP 148/75; PULSE 68; RESP 20; TEMP 36.9; O2SAT 95
[2020-12-18 14:00] VITALS: BP 145/78; PULSE 68; RESP 20; TEMP 36.9; O2SAT 95
== END 2020-12-18 14:00 | disposition home or self-care (01) ==
LOC: INF 11:11
PROVIDERS: PCP Internal Medicine Adolescent Medicine; Visit Provider Internal Medicine Adolescent Medicine
DX: E88.01 Alpha-1-antitrypsin deficiency (principal); R79.89 Other specified abnormal findings of blood chemistry
CPT/HCPCS: 82728; 96365; J0256

== ENCOUNTER 2020-12-22 11:21 | Outpatient (CLI) | payer MEDICARE, BC, SELFPAY ==
[2020-12-22 11:25] VITALS: BP 167/72; PULSE 83; RESP 18; O2SAT 98
[2020-12-22 13:30] VITALS: BP 150/76; PULSE 78; RESP 20
== END 2020-12-22 13:30 | disposition home or self-care (01) ==
LOC: INF 11:22
PROVIDERS: PCP Internal Medicine Adolescent Medicine; Visit Provider Internal Medicine Adolescent Medicine
DX: E88.01 Alpha-1-antitrypsin deficiency (principal)
CPT/HCPCS: 96365; J0256

== ENCOUNTER 2021-01-01 11:40 | Outpatient (CLI) | payer MEDICARE, BC, SELFPAY ==
[2021-01-01 12:05] VITALS: BP 165/80; PULSE 68; RESP 20; O2SAT 20
[2021-01-01 14:10] VITALS: BP 160/80; PULSE 83; RESP 20
== END 2021-01-01 14:10 | disposition home or self-care (01) ==
LOC: INF 11:43
PROVIDERS: PCP Internal Medicine Adolescent Medicine; Visit Provider Internal Medicine Adolescent Medicine
DX: E88.01 Alpha-1-antitrypsin deficiency (principal)
CPT/HCPCS: 96365; J0256

== ENCOUNTER 2021-01-05 12:56 | Outpatient (CLI) | payer MEDICARE, BC, SELFPAY ==
[2021-01-05 13:01] VITALS: BMI 22.8
[2021-01-05 13:32] LABS: Basophils % 0.4 % (0.1-2.0); Eosinophils # 0.4 K/mm3 (0.0-0.4); Eosinophils % 3.5 % (0.1-12.0); Hematocrit 37.1 % (42.0-52.0); Hemoglobin 11.4 g/dL (14.1-18.0); Lymphocytes # 1.9 K/mm3 (0.7-4.5); Lymphocytes % 18.2 % (10-50); Mean Corpuscular HGB Conc 30.7 g/dL (31.8-35.4); Mean Corpuscular Volume 68.5 fl (80-94); Mean Platelet Volume 7.7 fl (7.4-10.4); Monocytes # 0.8 K/mm3 (0.1-1.0); Monocytes % 7.6 % (1.7-9.3); Neutrophils # 7.5 K/mm3 (1.8-7.8); Neutrophils % 70.4 % (37.0-80.0); Platelet Count 166 K/mm3 (142-424); Red Blood Count 5.41 M/mm3 (4.60-6.20); Red Cell Distribution Width 17.6 % (11.5-17.5); White Blood Count 10.6 K/mm3 (4.8-10.8)
[2021-01-05 13:34] LABS: Chloride 99 mmol/L (98-107); Potassium 3.9 mmoL/L (3.5-5.1); Sodium 135 mmol/L (136-145)
[2021-01-05 13:37] LABS: Alanine Aminotransferase 34 U/L (12-78); Albumin Level 3.5 g/dl (3.5-5.0); Albumin/Globulin Ratio 1.2 (1.1-1.8); Alkaline Phosphatase 106 U/L (38-126); Anion Gap 7.9 mEq/L (5-15); Aspartate Amino Transferase 34 U/L (17-59); Bilirubin,Direct 0.4 mg/dl (0.0-0.4); Bilirubin,Indirect 0.8 mg/dL (0.0-0.9); Bilirubin,Total 1.2 mg/dl (0.2-1.3); Bilirubin,Unconjugated 0.8 mg/dL (0.0-1.1); Blood Urea Nitrogen 21 mg/dl (9-20); Calcium 8.5 mg/dl (8.4-10.2); Carbon Dioxide 32 mmol/L (22.0-30.0); Creatinine Clearance Estimated 57 mL/min (50-200); Estimated Glomerular Filt Rate 93 ml/min (>60); GFR (African American) 112 ML/MIN (>60); Glucose 86 mg/dl (74-100); Total Protein,Serum 6.5 g/dl (6.3-8.2)
[2021-01-05 13:40] VITALS: BP 159/78; PULSE 78; RESP 20; TEMP 36.7; O2SAT 99
[2021-01-05 14:13] LABS: Ferritin 157 ng/ml (17.9-464)
[2021-01-05 15:00] VITALS: BP 153/76; PULSE 94; RESP 18
== END 2021-01-05 15:00 | disposition home or self-care (01) ==
LOC: INF 12:57
PROVIDERS: PCP Internal Medicine Adolescent Medicine; Visit Provider Internal Medicine Adolescent Medicine
DX: E88.01 Alpha-1-antitrypsin deficiency (principal); R79.89 Other specified abnormal findings of blood chemistry
CPT/HCPCS: 80053; 80076; 82728; 85025; 96365; J0256

== ENCOUNTER → 2021-01-08 12:13 | Outpatient (CLI) | payer MEDICARE, BC, SELFPAY ==
--- NOTE | 2021-01-08 12:20 | XR_ITS ---
PROCEDURE: XR CHEST 2V CLINICAL HISTORY: ALPHA 1 ANTITRYPSIN,CHRONIC RESPIRATORY FAILURE,COVID 19 COMPARISON: CR CXR CHEST(2 VIEWS-NOT PORTABLE) from 02/14/2017 CR CXR CHEST(2 VIEWS-NOT PORTABLE) from 02/25/[address] [facility] [address] CHEST W/O CONTRAST from 03/13/2017 CR CXR2V XR chest 2V from 06/23/2017 FINDINGS: The cardiomediastinal silhouette and pulmonary vascularity are within normal limits. There is hyperinflation. Fibrotic changes are present in the infrahilar region on the right and left lower lobe. No lobar consolidation or collapse. There is moderate wedging L1 unchanged. No acute bony abnormalities. IMPRESSION: COPD changes with areas of scarring. Moderate wedging of L1. No change with no acute finding. Dictated by: Nick Serrano MD 01/08/2021 15:45 Nick Serrano MD in [place] 01/08/2021 15:45
== END ==
PROVIDERS: PCP Nurse Practitioner Family; Visit Provider Nurse Practitioner Family
DX: U07.1 COVID-19 (principal); J96.20 Acute and chronic respiratory failure, unspecified whether with hypoxia or hypercapnia; E88.01 Alpha-1-antitrypsin deficiency
CPT/HCPCS: 71046

== ENCOUNTER 2021-01-12 12:57 | Outpatient (CLI) | payer MEDICARE, BC, SELFPAY ==
[2021-01-12 13:35] VITALS: BP 148/77; PULSE 71; RESP 20; TEMP 36.7; O2SAT 96
[2021-01-12 15:25] VITALS: BP 143/72; PULSE 74; RESP 20; O2SAT 96
== END 2021-01-12 15:25 | disposition home or self-care (01) ==
LOC: INF 12:58
PROVIDERS: PCP Internal Medicine Adolescent Medicine; Visit Provider Internal Medicine Adolescent Medicine
DX: E88.01 Alpha-1-antitrypsin deficiency (principal)
CPT/HCPCS: 96365; 99195; J0256

== ENCOUNTER 2021-01-19 14:33 | Outpatient (CLI) | payer MEDICARE, BC, SELFPAY ==
[2021-01-19 14:39] VITALS: BMI 24.7
[2021-01-19 14:55] VITALS: BP 152/88; PULSE 77; RESP 18; O2SAT 99
[2021-01-19 15:41] LABS: Ferritin 87.8 ng/ml (17.9-464)
[2021-01-19 16:07] VITALS: BP 139/61; PULSE 79; RESP 18; O2SAT 96
== END 2021-01-19 16:08 | disposition home or self-care (01) ==
LOC: INF 14:34
PROVIDERS: PCP Internal Medicine Adolescent Medicine; Visit Provider Internal Medicine Adolescent Medicine
DX: E88.01 Alpha-1-antitrypsin deficiency (principal); R79.89 Other specified abnormal findings of blood chemistry
CPT/HCPCS: 82728; 96365; J0256

== ENCOUNTER 2021-01-26 12:11 | Outpatient (CLI) | payer MEDICARE, BC, SELFPAY ==
[2021-01-26 12:50] VITALS: BP 128/67; PULSE 71; RESP 17; TEMP 36.6; O2SAT 96
[2021-01-26 14:52] VITALS: BP 145/77; PULSE 74; RESP 17; TEMP 36.6; O2SAT 97
== END 2021-01-26 14:55 | disposition home or self-care (01) ==
LOC: INF 12:12
PROVIDERS: PCP Internal Medicine Adolescent Medicine; Visit Provider Internal Medicine Adolescent Medicine
DX: E88.01 Alpha-1-antitrypsin deficiency (principal)
CPT/HCPCS: 96365; 96366; J0256

== ENCOUNTER 2021-02-02 13:44 | Outpatient (CLI) | payer MEDICARE, BC, SELFPAY ==
[2021-02-02 14:10] VITALS: BP 147/94; PULSE 74; RESP 20; O2SAT 96
[2021-02-02 14:40] VITALS: BP 139/72; PULSE 76; RESP 20; O2SAT 97
[2021-02-02 15:38] VITALS: BP 149/72; PULSE 82; RESP 22; O2SAT 98
== END 2021-02-02 15:55 | disposition home or self-care (01) ==
LOC: INF 13:45
PROVIDERS: PCP Internal Medicine Adolescent Medicine; Visit Provider Internal Medicine Adolescent Medicine
DX: E88.01 Alpha-1-antitrypsin deficiency (principal)
CPT/HCPCS: 96365; J0256

== ENCOUNTER 2021-02-08 13:20 | Outpatient (CLI) | payer MEDICARE, BC, SELFPAY ==
[2021-02-08 13:43] VITALS: BMI 24.7
[2021-02-08 14:15] VITALS: BP 150/80; PULSE 82; RESP 18; O2SAT 97
[2021-02-08 15:07] LABS: Ferritin 71.9 ng/ml (17.9-464)
[2021-02-08 15:30] VITALS: BP 140/69; PULSE 73; RESP 18
== END 2021-02-08 16:10 | disposition home or self-care (01) ==
LOC: INF 13:20
PROVIDERS: PCP Internal Medicine Adolescent Medicine; Visit Provider Internal Medicine Adolescent Medicine
DX: E88.01 Alpha-1-antitrypsin deficiency (principal); R79.89 Other specified abnormal findings of blood chemistry
CPT/HCPCS: 82728; 96365; J0256

== ENCOUNTER 2021-02-14 14:08 | Outpatient (CLI) | payer MEDICARE, BC, SELFPAY ==
[2021-02-14 14:35] VITALS: BP 156/75; PULSE 81; RESP 20; O2SAT 97
[2021-02-14 15:56] VITALS: BP 146/85; PULSE 75; RESP 20; O2SAT 96
== END 2021-02-14 15:56 | disposition home or self-care (01) ==
LOC: INF 14:10
PROVIDERS: PCP Internal Medicine Adolescent Medicine; Visit Provider Internal Medicine Adolescent Medicine
DX: E88.01 Alpha-1-antitrypsin deficiency (principal)
CPT/HCPCS: 96365

== ENCOUNTER 2021-02-23 12:53 | Outpatient (CLI) | payer MEDICARE, BC, SELFPAY ==
[2021-02-23 13:45] VITALS: BP 164/80; PULSE 76; RESP 22; TEMP 36.2; O2SAT 95
[2021-02-23 15:28] VITALS: BP 150/84; PULSE 77; RESP 20; O2SAT 96
== END 2021-02-23 15:30 | disposition home or self-care (01) ==
LOC: INF 12:54
PROVIDERS: PCP Internal Medicine Adolescent Medicine; Visit Provider Internal Medicine Adolescent Medicine
DX: E88.01 Alpha-1-antitrypsin deficiency (principal)
CPT/HCPCS: 96365; 99195; J0256

== ENCOUNTER 2021-03-02 13:23 | Outpatient (CLI) | payer MEDICARE, BC, SELFPAY ==
[2021-03-02 13:33] VITALS: BMI 24.7
[2021-03-02 13:52] VITALS: BP 152/91; PULSE 75; RESP 18; O2SAT 98
[2021-03-02 14:52] VITALS: BP 145/73; PULSE 88; RESP 18; O2SAT 96
[2021-03-02 14:55] LABS: Ferritin 48.4 ng/ml (17.9-464)
[2021-03-02 15:37] VITALS: BP 142/71; PULSE 78; RESP 20; O2SAT 98
== END 2021-03-02 16:30 | disposition home or self-care (01) ==
LOC: INF 13:23
PROVIDERS: PCP Internal Medicine Adolescent Medicine; Visit Provider Internal Medicine Adolescent Medicine
DX: E88.01 Alpha-1-antitrypsin deficiency (principal); R79.89 Other specified abnormal findings of blood chemistry
CPT/HCPCS: 82728; 96365; J0256

== ENCOUNTER 2021-03-09 13:15 | Outpatient (CLI) | payer MEDICARE, BC, SELFPAY ==
[2021-03-09 13:48] VITALS: BP 142/84; PULSE 69; RESP 20; TEMP 36.6; O2SAT 98
[2021-03-09 14:00] VITALS: BP 139/74; PULSE 71; RESP 18; O2SAT 97
[2021-03-09 14:30] VITALS: BP 129/72; PULSE 72; RESP 18; O2SAT 98
[2021-03-09 15:10] VITALS: PULSE 68; RESP 18; TEMP 36.5; O2SAT 97
== END 2021-03-09 15:22 | disposition home or self-care (01) ==
LOC: INF 13:15
PROVIDERS: PCP Internal Medicine Adolescent Medicine; Visit Provider Internal Medicine Adolescent Medicine
DX: E88.01 Alpha-1-antitrypsin deficiency (principal)
CPT/HCPCS: 96365; J0256

== ENCOUNTER 2021-03-14 12:31 | Outpatient (CLI) | payer MEDICARE, BC, SELFPAY ==
[2021-03-14 13:10] VITALS: BP 136/79; PULSE 68; RESP 20; O2SAT 98
[2021-03-14 14:40] VITALS: BP 147/70; PULSE 70; RESP 20; O2SAT 99
== END 2021-03-14 15:00 | disposition home or self-care (01) ==
LOC: INF 12:32
PROVIDERS: PCP Internal Medicine Adolescent Medicine; Visit Provider Internal Medicine Adolescent Medicine
DX: E88.01 Alpha-1-antitrypsin deficiency (principal)
CPT/HCPCS: 96365; J0256

== ENCOUNTER 2021-03-22 13:49 | Outpatient (CLI) | payer MEDICARE, BC, SELFPAY ==
[2021-03-22 14:48] VITALS: BP 100/87; PULSE 76; RESP 20; TEMP 36.6; O2SAT 96
[2021-03-22 15:18] VITALS: BP 97/67; PULSE 79; RESP 20; O2SAT 96
[2021-03-22 16:53] VITALS: BP 150/70; PULSE 78; RESP 20; O2SAT 94
== END 2021-03-22 16:56 | disposition home or self-care (01) ==
LOC: INF 13:49
PROVIDERS: PCP Internal Medicine Adolescent Medicine; Visit Provider Internal Medicine Adolescent Medicine
DX: E88.01 Alpha-1-antitrypsin deficiency (principal)
CPT/HCPCS: 96365; J0256

== ENCOUNTER 2021-03-30 13:09 | Outpatient (CLI) | payer MEDICARE, BC, SELFPAY ==
[2021-03-30 13:12] VITALS: BMI 24.7
[2021-03-30 13:30] LABS: Basophils # 0.1 K/mm3 (0-0.2); Basophils % 1.1 % (0.1-2.0); Eosinophils # 0.2 K/mm3 (0.0-0.4); Hemoglobin 11.8 g/dL (14.1-18.0); Lymphocytes # 2.2 K/mm3 (0.7-4.5); Lymphocytes % 27.3 % (10-50); Mean Corpuscular HGB Conc 31.1 g/dL (31.8-35.4); Mean Corpuscular Hemoglobin 20.6 pg (27.0-31.2); Mean Corpuscular Volume 66.4 fl (80-94); Mean Platelet Volume 8.2 fl (7.4-10.4); Monocytes # 0.6 K/mm3 (0.1-1.0); Monocytes % 7.6 % (1.7-9.3); Platelet Count 211 K/mm3 (142-424); Red Blood Count 5.72 M/mm3 (4.60-6.20); Red Cell Distribution Width 16.2 % (11.5-17.5); White Blood Count 8.2 K/mm3 (4.8-10.8)
[2021-03-30 13:39] VITALS: BP 153/79; PULSE 81; RESP 20; O2SAT 97
[2021-03-30 13:45] LABS: Alanine Aminotransferase 28 U/L (12-78); Albumin Level 4.3 g/dl (3.5-5.0); Albumin/Globulin Ratio 1.4 (1.1-1.8); Alkaline Phosphatase 105 U/L (38-126); Anion Gap 9.6 mEq/L (5-15); Aspartate Amino Transferase 47 U/L (17-59); Bilirubin,Direct 0.1 mg/dl (0.0-0.4); Bilirubin,Total 1.1 mg/dl (0.2-1.3); Bilirubin,Unconjugated 0.9 mg/dL (0.0-1.1); Blood Urea Nitrogen 24 mg/dl (9-20); Calcium 9.2 mg/dl (8.4-10.2); Carbon Dioxide 32 mmol/L (22.0-30.0); Chloride 96 mmol/L (98-107); Creatinine Clearance Estimated 56 mL/min (50-200); Estimated Glomerular Filt Rate 64 ml/min (>60); GFR (African American) 78 ML/MIN (>60); Glucose 104 mg/dl (74-100); Potassium 3.6 mmoL/L (3.5-5.1); Sodium 134 mmol/L (136-145); Total Protein,Serum 7.3 g/dl (6.3-8.2)
[2021-03-30 15:20] VITALS: BP 144/78; PULSE 76; RESP 20
[2021-03-30 15:44] LABS: Ferritin 50.6 ng/ml (17.9-464)
== END 2021-03-30 15:20 | disposition home or self-care (01) ==
LOC: INF 13:10
PROVIDERS: PCP Internal Medicine Adolescent Medicine; Visit Provider Internal Medicine Adolescent Medicine
DX: E88.01 Alpha-1-antitrypsin deficiency (principal); R79.89 Other specified abnormal findings of blood chemistry
CPT/HCPCS: 80053; 80076; 82728; 85025; 96365; J0256

== ENCOUNTER 2021-04-06 13:49 | Outpatient (CLI) | payer MEDICARE, BC, SELFPAY ==
[2021-04-06 14:25] VITALS: BP 140/77; PULSE 73; RESP 18; TEMP 36.3; O2SAT 92
[2021-04-06 15:55] VITALS: BP 127/70; PULSE 92; RESP 18; O2SAT 95
== END 2021-04-06 16:30 | disposition home or self-care (01) ==
LOC: INF 13:50
PROVIDERS: PCP Internal Medicine Adolescent Medicine; Visit Provider Internal Medicine Adolescent Medicine
DX: E88.01 Alpha-1-antitrypsin deficiency (principal)
CPT/HCPCS: 96365; J0256

== ENCOUNTER 2021-04-13 12:21 | Outpatient (CLI) | payer MEDICARE, BC, SELFPAY ==
[2021-04-13 12:50] VITALS: BP 136/69; PULSE 67; RESP 18; O2SAT 94
[2021-04-13 14:20] VITALS: BP 135/75; PULSE 76; RESP 20
== END 2021-04-13 15:25 | disposition home or self-care (01) ==
LOC: INF 12:22
PROVIDERS: PCP Internal Medicine Adolescent Medicine; Visit Provider Internal Medicine Adolescent Medicine
DX: E88.01 Alpha-1-antitrypsin deficiency (principal)
CPT/HCPCS: 96365; J0256

== ENCOUNTER 2021-04-20 12:21 | Outpatient (CLI) | payer MEDICARE, BC, SELFPAY ==
[2021-04-20 12:58] VITALS: BP 136/75; PULSE 88; RESP 18; O2SAT 98
[2021-04-20 14:55] VITALS: BP 150/78; PULSE 82; RESP 18
== END 2021-04-20 14:55 | disposition home or self-care (01) ==
LOC: INF 12:22
PROVIDERS: PCP Internal Medicine Adolescent Medicine; Visit Provider Internal Medicine Adolescent Medicine
DX: E88.01 Alpha-1-antitrypsin deficiency (principal)
CPT/HCPCS: 96365; J0256

== ENCOUNTER 2021-04-26 10:12 | Outpatient (CLI) | payer MEDICARE, BC, SELFPAY ==
[2021-04-26 10:14] VITALS: BMI 24.7
[2021-04-26 10:30] VITALS: BP 119/74; PULSE 62; RESP 18; O2SAT 98
[2021-04-26 11:23] LABS: Ferritin 60.5 ng/ml (17.9-464)
[2021-04-26 12:18] VITALS: BP 173/83; PULSE 88; RESP 20
== END 2021-04-26 12:21 | disposition home or self-care (01) ==
LOC: INF 10:13
PROVIDERS: PCP Internal Medicine Adolescent Medicine; Visit Provider Internal Medicine Adolescent Medicine
DX: E88.01 Alpha-1-antitrypsin deficiency (principal); R79.89 Other specified abnormal findings of blood chemistry
CPT/HCPCS: 82728; 96365; J0256

== ENCOUNTER 2021-05-04 09:00 | Outpatient (CLI) | payer MEDICARE, BC, SELFPAY ==
[2021-05-04 12:56] VITALS: BP 156/76; PULSE 62; RESP 20; O2SAT 94
[2021-05-04 15:00] VITALS: BP 145/86; PULSE 95; RESP 20
== END 2021-05-04 15:00 | disposition home or self-care (01) ==
LOC: INF 09:00
PROVIDERS: PCP Internal Medicine Adolescent Medicine; Visit Provider Internal Medicine Adolescent Medicine
DX: E88.01 Alpha-1-antitrypsin deficiency (principal)
CPT/HCPCS: 96365; J0256

== ENCOUNTER 2021-05-11 08:17 | Outpatient (CLI) | payer MEDICARE, BC, SELFPAY ==
[2021-05-11 14:25] VITALS: BP 139/73; PULSE 78; RESP 22; O2SAT 95
[2021-05-11 15:54] VITALS: BP 123/83; PULSE 69; RESP 20
== END 2021-05-11 15:55 | disposition home or self-care (01) ==
LOC: INF 08:18
PROVIDERS: PCP Internal Medicine Adolescent Medicine; Visit Provider Internal Medicine Adolescent Medicine
DX: E88.01 Alpha-1-antitrypsin deficiency (principal)
CPT/HCPCS: 96365

== ENCOUNTER 2021-05-18 08:16 | Outpatient (CLI) | payer MEDICARE, BC, SELFPAY ==
[2021-05-18 13:55] VITALS: BP 152/88; PULSE 78; RESP 18; O2SAT 94
[2021-05-18 15:10] VITALS: BP 142/72; PULSE 75; RESP 18
== END 2021-05-18 16:10 | disposition home or self-care (01) ==
LOC: INF 08:17
PROVIDERS: PCP Internal Medicine Adolescent Medicine; Visit Provider Internal Medicine Adolescent Medicine
DX: E88.01 Alpha-1-antitrypsin deficiency (principal)
CPT/HCPCS: 96365; J0256

== ENCOUNTER 2021-05-25 06:21 | Outpatient (CLI) | payer MEDICARE, BC, SELFPAY ==
[2021-05-25 13:54] VITALS: BMI 23.6
[2021-05-25 14:03] VITALS: BP 140/70; PULSE 68; RESP 20; TEMP 36.9; O2SAT 95
[2021-05-25 14:54] LABS: Ferritin 54.1 ng/ml (17.9-464)
[2021-05-25 15:45] VITALS: BP 148/74; PULSE 70; RESP 20; TEMP 36.9; O2SAT 96
== END 2021-05-25 15:00 | disposition home or self-care (01) ==
LOC: INF 06:22
PROVIDERS: PCP Internal Medicine Adolescent Medicine; Visit Provider Internal Medicine Adolescent Medicine
DX: E88.01 Alpha-1-antitrypsin deficiency (principal); R79.89 Other specified abnormal findings of blood chemistry
CPT/HCPCS: 82728; 96365; J0256

== ENCOUNTER 2021-06-01 08:16 | Outpatient (CLI) | payer MEDICARE, BC, SELFPAY ==
[2021-06-01 15:00] VITALS: BP 164/80; PULSE 70; RESP 20; TEMP 36.4; O2SAT 93
[2021-06-01 16:10] VITALS: BP 158/78; PULSE 68; RESP 20; TEMP 36.9
== END 2021-06-01 16:32 | disposition home or self-care (01) ==
LOC: INF 08:17
PROVIDERS: PCP Internal Medicine Adolescent Medicine; Visit Provider Internal Medicine Adolescent Medicine
DX: E88.01 Alpha-1-antitrypsin deficiency (principal)
CPT/HCPCS: 96365; J0256

== ENCOUNTER 2021-06-08 13:53 | Outpatient (CLI) | payer MEDICARE, BC, SELFPAY ==
[2021-06-08 14:30] VITALS: BP 147/83; PULSE 68; RESP 20; O2SAT 94
[2021-06-08 16:09] VITALS: BP 145/86; PULSE 85; RESP 22
== END 2021-06-08 16:09 | disposition home or self-care (01) ==
LOC: INF 13:54
PROVIDERS: PCP Internal Medicine Adolescent Medicine; Visit Provider Internal Medicine Adolescent Medicine
DX: E88.01 Alpha-1-antitrypsin deficiency (principal)
CPT/HCPCS: 96365; J0256

== ENCOUNTER → 2021-06-15 13:59 | Outpatient (CLI) | payer MEDICARE, BC, SELFPAY ==
[2021-06-15 14:30] VITALS: BP 167/91; PULSE 86; RESP 20
[2021-06-15 15:55] VITALS: BP 161/85; PULSE 81; RESP 18; O2SAT 94
== END ==
PROVIDERS: PCP Internal Medicine Adolescent Medicine; Visit Provider Internal Medicine Adolescent Medicine
DX: E88.01 Alpha-1-antitrypsin deficiency (principal)
CPT/HCPCS: 96365; J0256

== ENCOUNTER 2021-06-22 13:56 | Outpatient (CLI) | payer MEDICARE, BC, SELFPAY ==
[2021-06-22 14:04] VITALS: BMI 24.7
[2021-06-22 14:25] VITALS: BP 160/77; PULSE 94; RESP 20; O2SAT 96
[2021-06-22 14:35] LABS: Basophils % 0.4 % (0.1-2.0); Eosinophils # 0.3 K/mm3 (0.0-0.4); Eosinophils % 3.3 % (0.1-12.0); Hematocrit 36.2 % (42.0-52.0); Hemoglobin 11.6 g/dL (14.1-18.0); Lymphocytes # 2.1 K/mm3 (0.7-4.5); Lymphocytes % 27.4 % (10-50); Mean Corpuscular Volume 65.8 fl (80-94); Mean Platelet Volume 8.5 fl (7.4-10.4); Monocytes # 0.6 K/mm3 (0.1-1.0); Monocytes % 7.7 % (1.7-9.3); Neutrophils # 4.7 K/mm3 (1.8-7.8); Neutrophils % 61.2 % (37.0-80.0); Platelet Count 197 K/mm3 (142-424); Red Blood Count 5.51 M/mm3 (4.60-6.20); Red Cell Distribution Width 16.7 % (11.5-17.5); White Blood Count 7.7 K/mm3 (4.8-10.8)
[2021-06-22 14:39] LABS: Chloride 100 mmol/L (98-107); Potassium 3.6 mmoL/L (3.5-5.1); Sodium 138 mmol/L (136-145)
[2021-06-22 14:42] LABS: Alanine Aminotransferase 24 U/L (12-78); Albumin Level 3.9 g/dl (3.5-5.0); Albumin/Globulin Ratio 1.3 (1.1-1.8); Alkaline Phosphatase 96 U/L (38-126); Anion Gap 9.6 mEq/L (5-15); Aspartate Amino Transferase 40 U/L (17-59); Bilirubin,Total 1.2 mg/dl (0.2-1.3); Blood Urea Nitrogen 27 mg/dl (9-20); Carbon Dioxide 32 mmol/L (22.0-30.0); Creatinine Clearance Estimated 56 mL/min (50-200); Estimated Glomerular Filt Rate 64 ml/min (>60); GFR (African American) 78 ML/MIN (>60); Globulin 2.9 g/dL (1.3-3.2); Total Protein,Serum 6.8 g/dl (6.3-8.2)
[2021-06-22 14:43] LABS: Calcium 8.4 mg/dl (8.4-10.2); Glucose 105 mg/dl (74-100)
[2021-06-22 15:00] VITALS: BP 134/67; PULSE 76; RESP 18
[2021-06-22 15:09] LABS: Bilirubin,Direct 0.4 mg/dl (0.0-0.4)
[2021-06-22 15:11] LABS: Bilirubin,Indirect 0.8 mg/dL (0.0-0.9)
[2021-06-22 15:20] LABS: Ferritin 67.5 ng/ml (17.9-464)
== END 2021-06-22 15:50 | disposition home or self-care (01) ==
LOC: INF 13:57
PROVIDERS: PCP Internal Medicine Adolescent Medicine; Visit Provider Internal Medicine Adolescent Medicine
DX: E88.01 Alpha-1-antitrypsin deficiency (principal); R79.89 Other specified abnormal findings of blood chemistry
CPT/HCPCS: 80053; 82248; 82728; 85025; 96365; J0256

== ENCOUNTER 2021-06-29 14:21 | Outpatient (CLI) | payer MEDICARE, BC, SELFPAY ==
[2021-06-29 14:45] VITALS: BP 152/102; PULSE 78; RESP 20; O2SAT 94
[2021-06-29 16:00] VITALS: BP 159/73; PULSE 76; RESP 20
== END 2021-06-29 16:00 | disposition home or self-care (01) ==
PROVIDERS: PCP Internal Medicine Adolescent Medicine; Visit Provider Internal Medicine Adolescent Medicine
DX: E88.01 Alpha-1-antitrypsin deficiency (principal)
CPT/HCPCS: 96365; J0256

== ENCOUNTER 2021-07-05 13:02 | Outpatient (CLI) | payer MEDICARE, BC, SELFPAY ==
[2021-07-05 13:45] VITALS: BP 161/76; PULSE 78; RESP 20; O2SAT 95
[2021-07-05 15:30] VITALS: BP 166/88; PULSE 81; RESP 18
== END 2021-07-05 15:30 | disposition home or self-care (01) ==
LOC: INF 13:03
PROVIDERS: PCP Internal Medicine Adolescent Medicine; Visit Provider Internal Medicine Adolescent Medicine
DX: E88.01 Alpha-1-antitrypsin deficiency (principal)
CPT/HCPCS: 96365; J0256

== ENCOUNTER 2021-07-13 13:43 | Outpatient (CLI) | payer MEDICARE, BC, SELFPAY ==
[2021-07-13 14:05] VITALS: BP 170/86; PULSE 84; RESP 18; TEMP 36.6; O2SAT 94
[2021-07-13 14:45] VITALS: BP 148/79; PULSE 78; RESP 16; O2SAT 94
[2021-07-13 15:15] VITALS: BP 142/78; PULSE 80; RESP 20; TEMP 36.6; O2SAT 95
== END 2021-07-13 15:20 | disposition home or self-care (01) ==
LOC: INF 13:44
PROVIDERS: PCP Internal Medicine Adolescent Medicine; Visit Provider Internal Medicine Adolescent Medicine
DX: E88.01 Alpha-1-antitrypsin deficiency (principal)
CPT/HCPCS: 96365; J0256

== ENCOUNTER → 2021-07-16 15:05 | Outpatient (CLI) | payer MEDICARE, BC, SELFPAY ==
[2021-07-16 16:22] LABS: Basophils # 0.1 K/mm3 (0-0.2); Basophils % 0.7 % (0.1-2.0); Eosinophils # 0.8 K/mm3 (0.0-0.4); Eosinophils % 9.1 % (0.1-12.0); Hematocrit 38.6 % (42.0-52.0); Hemoglobin 12.4 g/dL (14.1-18.0); Lymphocytes # 1.7 K/mm3 (0.7-4.5); Lymphocytes % 19.4 % (10-50); Mean Corpuscular HGB Conc 32.2 g/dL (31.8-35.4); Mean Corpuscular Hemoglobin 20.9 pg (27.0-31.2); Mean Corpuscular Volume 65.1 fl (80-94); Monocytes # 0.7 K/mm3 (0.1-1.0); Monocytes % 8.2 % (1.7-9.3); Neutrophils # 5.4 K/mm3 (1.8-7.8); Neutrophils % 62.6 % (37.0-80.0); Platelet Count 221 K/mm3 (142-424); Red Blood Count 5.94 M/mm3 (4.60-6.20); Red Cell Distribution Width 16.5 % (11.5-17.5); White Blood Count 8.6 K/mm3 (4.8-10.8)
[2021-07-16 16:47] LABS: Chloride 100 mmol/L (98-107); Sodium 137 mmol/L (136-145)
[2021-07-16 16:50] LABS: Alanine Aminotransferase 23 U/L (12-78); Albumin Level 3.9 g/dl (3.5-5.0); Albumin/Globulin Ratio 1.6 (1.1-1.8); Alkaline Phosphatase 121 U/L (38-126); Anion Gap 9.9 mEq/L (5-15); Aspartate Amino Transferase 37 U/L (17-59); Bilirubin,Total 1.1 mg/dl (0.2-1.3); Blood Urea Nitrogen 25 mg/dl (9-20); Carbon Dioxide 31 mmol/L (22.0-30.0); Estimated Glomerular Filt Rate 64 ml/min (>60); GFR (African American) 78 ML/MIN (>60); Globulin 2.5 g/dL (1.3-3.2); Potassium 3.9 mmoL/L (3.5-5.1); Total Protein,Serum 6.4 g/dl (6.3-8.2)
[2021-07-16 16:51] LABS: Calcium 9.4 mg/dl (8.4-10.2); Glucose 90 mg/dl (74-100)
== END ==
PROVIDERS: Visit Provider Nurse Practitioner Family
DX: R21 Rash and other nonspecific skin eruption (principal)
CPT/HCPCS: 36415; 80053; 85025

== ENCOUNTER 2021-07-20 12:14 | Outpatient (CLI) | payer MEDICARE, BC, SELFPAY ==
[2021-07-20 12:45] VITALS: BP 155/99; PULSE 83; RESP 22; O2SAT 95
[2021-07-20 15:15] VITALS: BP 149/86; PULSE 82; RESP 22; O2SAT 95
== END 2021-07-20 15:15 | disposition home or self-care (01) ==
LOC: INF 12:15
PROVIDERS: PCP Internal Medicine Adolescent Medicine; Visit Provider Internal Medicine Adolescent Medicine
DX: E88.01 Alpha-1-antitrypsin deficiency (principal)
CPT/HCPCS: 96365; J0256

== ENCOUNTER 2021-07-27 13:32 | Outpatient (CLI) | payer MEDICARE, BC, SELFPAY ==
[2021-07-27 13:39] VITALS: BMI 24.7
[2021-07-27 13:53] VITALS: BP 158/78; PULSE 85; RESP 22; O2SAT 95
[2021-07-27 15:35] VITALS: BP 137/81; PULSE 81; RESP 20
== END 2021-07-27 15:35 | disposition home or self-care (01) ==
LOC: INF 13:33
PROVIDERS: PCP Internal Medicine Adolescent Medicine; Visit Provider Internal Medicine Adolescent Medicine
DX: R79.89 Other specified abnormal findings of blood chemistry (principal); E88.01 Alpha-1-antitrypsin deficiency
CPT/HCPCS: 82728; 96365; J0256

== ENCOUNTER 2021-08-03 12:43 | Outpatient (CLI) | payer MEDICARE, BC, SELFPAY ==
[2021-08-03 13:30] VITALS: BP 132/74; PULSE 69; O2SAT 96
[2021-08-03 14:00] VITALS: BP 124/71; PULSE 81; O2SAT 95
[2021-08-03 14:45] VITALS: BP 126/81; PULSE 72; O2SAT 96
== END 2021-08-03 14:45 | disposition home or self-care (01) ==
LOC: INF 12:45
PROVIDERS: PCP Internal Medicine Adolescent Medicine; Visit Provider Internal Medicine Adolescent Medicine
DX: E88.01 Alpha-1-antitrypsin deficiency (principal)
CPT/HCPCS: 96365; J0256

== ENCOUNTER 2021-08-10 13:21 | Outpatient (CLI) | payer MEDICARE, BC, SELFPAY ==
[2021-08-10 14:06] VITALS: BP 147/75; PULSE 75; RESP 18; O2SAT 95
[2021-08-10 14:55] VITALS: BP 152/58; PULSE 77; RESP 18
== END 2021-08-10 15:15 | disposition home or self-care (01) ==
LOC: INF 13:22
PROVIDERS: PCP Internal Medicine Adolescent Medicine; Visit Provider Internal Medicine Adolescent Medicine
DX: E88.01 Alpha-1-antitrypsin deficiency (principal)
CPT/HCPCS: 96365; 99195; J0256

== ENCOUNTER → 2021-08-17 13:10 | Outpatient (CLI) | payer MEDICARE, BC, SELFPAY ==
[2021-08-17 13:13] VITALS: BMI 24.8
[2021-08-17 13:50] VITALS: BP 158/72; BP 161/78; PULSE 75; PULSE 78; RESP 22; O2SAT 97
[2021-08-17 14:24] LABS: Ferritin 68.5 ng/ml (17.9-464)
== END ==
PROVIDERS: PCP Internal Medicine Adolescent Medicine; Visit Provider Internal Medicine Adolescent Medicine
DX: E88.01 Alpha-1-antitrypsin deficiency (principal); R79.89 Other specified abnormal findings of blood chemistry
CPT/HCPCS: 82728; 96365; J0256

== ENCOUNTER 2021-08-23 12:13 | Outpatient (CLI) | payer MEDICARE, BC, SELFPAY ==
[2021-08-23 12:35] VITALS: BP 170/84; PULSE 72; RESP 20; O2SAT 96
[2021-08-23 14:30] VITALS: BP 165/96; PULSE 72; RESP 20
== END 2021-08-23 14:30 | disposition home or self-care (01) ==
LOC: INF 12:14
PROVIDERS: PCP Internal Medicine Adolescent Medicine; Visit Provider Internal Medicine Adolescent Medicine
DX: E88.01 Alpha-1-antitrypsin deficiency (principal)
CPT/HCPCS: 96365; J0256

== ENCOUNTER 2021-08-31 10:28 | Outpatient (CLI) | payer MEDICARE, BC, SELFPAY ==
[2021-08-31 11:00] VITALS: BP 169/78; PULSE 82; RESP 22; O2SAT 97
[2021-08-31 12:40] VITALS: BP 148/62; PULSE 80; RESP 18
== END 2021-08-31 12:40 | disposition home or self-care (01) ==
LOC: INF 10:29
PROVIDERS: PCP Internal Medicine Adolescent Medicine; Visit Provider Internal Medicine Adolescent Medicine
DX: E88.01 Alpha-1-antitrypsin deficiency (principal)
CPT/HCPCS: 96365; J0256

== ENCOUNTER 2021-09-07 13:55 | Outpatient (CLI) | payer MEDICARE, BC, SELFPAY ==
[2021-09-07 13:55] VITALS: BMI 24.7
[2021-09-07 14:20] VITALS: BP 171/87; PULSE 68; RESP 20; O2SAT 97
[2021-09-07 15:00] LABS: Ferritin 88.2 ng/ml (17.9-464)
[2021-09-07 16:03] VITALS: BP 179/92; PULSE 75; RESP 18
== END 2021-09-07 16:03 | disposition home or self-care (01) ==
LOC: INF 13:56
PROVIDERS: PCP Internal Medicine Adolescent Medicine; Visit Provider Internal Medicine Adolescent Medicine
DX: E88.01 Alpha-1-antitrypsin deficiency (principal); R79.89 Other specified abnormal findings of blood chemistry
CPT/HCPCS: 82728; 96365; J0256

== ENCOUNTER 2021-09-14 13:46 | Outpatient (CLI) | payer MEDICARE, BC, SELFPAY ==
[2021-09-14 14:25] VITALS: BP 145/84; PULSE 95; RESP 18
[2021-09-14 15:25] VITALS: BP 126/63; PULSE 91; RESP 18
[2021-09-14 15:55] VITALS: BP 134/72; PULSE 93; RESP 18
== END 2021-09-14 16:15 | disposition home or self-care (01) ==
PROVIDERS: PCP Internal Medicine Adolescent Medicine; Visit Provider Internal Medicine Adolescent Medicine
DX: E88.01 Alpha-1-antitrypsin deficiency (principal)
CPT/HCPCS: 96365; 99195; J0256

== ENCOUNTER 2021-09-21 13:06 | Outpatient (CLI) | payer MEDICARE, BC, SELFPAY ==
[2021-09-21 13:30] VITALS: BP 142/81; PULSE 81; RESP 20; O2SAT 97
[2021-09-21 15:10] VITALS: BP 141/65; PULSE 79; RESP 18; O2SAT 96
== END 2021-09-21 15:10 | disposition home or self-care (01) ==
LOC: INF 13:07
PROVIDERS: PCP Internal Medicine Adolescent Medicine; Visit Provider Internal Medicine Adolescent Medicine
DX: E88.01 Alpha-1-antitrypsin deficiency (principal)
CPT/HCPCS: 96365; J0256

== ENCOUNTER 2021-09-28 13:33 | Outpatient (CLI) | payer MEDICARE, BC, SELFPAY ==
[2021-09-28 13:42] VITALS: BMI 24.7
[2021-09-28 14:10] VITALS: BP 163/68; PULSE 71; RESP 20; O2SAT 98
[2021-09-28 14:57] LABS: Ferritin 49.5 ng/ml (17.9-464)
[2021-09-28 15:26] VITALS: BP 152/75; PULSE 72; RESP 20; O2SAT 97
== END 2021-09-28 15:28 | disposition home or self-care (01) ==
LOC: INF 13:33
PROVIDERS: PCP Internal Medicine Adolescent Medicine; Visit Provider Internal Medicine Adolescent Medicine
DX: E88.01 Alpha-1-antitrypsin deficiency (principal); R79.89 Other specified abnormal findings of blood chemistry
CPT/HCPCS: 82728; 96365; J0256

== ENCOUNTER 2021-10-05 13:10 | Outpatient (CLI) | payer MEDICARE, BC, SELFPAY ==
[2021-10-05 13:45] VITALS: BP 153/77; PULSE 68; RESP 20; TEMP 36.9; O2SAT 98
[2021-10-05 14:15] VITALS: BP 145/74; PULSE 68; RESP 20; TEMP 36.9; O2SAT 95
[2021-10-05 15:38] VITALS: BP 137/55; PULSE 68; RESP 20; TEMP 36.9; O2SAT 98
== END 2021-10-05 15:40 | disposition home or self-care (01) ==
LOC: INF 13:10
PROVIDERS: PCP Internal Medicine Adolescent Medicine; Visit Provider Internal Medicine Adolescent Medicine
DX: E88.01 Alpha-1-antitrypsin deficiency (principal)
CPT/HCPCS: 96365; J0256

== ENCOUNTER → 2021-10-12 12:51 | Outpatient (CLI) | payer MEDICARE, BC, SELFPAY ==
[2021-10-12 12:47] VITALS: BMI 24.7
[2021-10-12 13:05] VITALS: BP 143/85; PULSE 68; RESP 20; TEMP 36.9; O2SAT 95
[2021-10-12 13:15] LABS: Potassium 3.8 mmoL/L (3.5-5.1); Sodium 135 mmol/L (136-145)
[2021-10-12 13:16] LABS: Chloride 100 mmol/L (98-107)
[2021-10-12 13:17] LABS: Basophils % 0.5 % (0.1-2.0); Blood Urea Nitrogen 19 mg/dl (9-20); Creatinine Clearance Estimated 61 mL/min (50-200); Eosinophils # 0.3 K/mm3 (0.0-0.4); Eosinophils % 3.6 % (0.1-12.0); Estimated Glomerular Filt Rate 72 ml/min (>60); GFR (African American) 87 ML/MIN (>60); Hematocrit 35.7 % (42.0-52.0); Hemoglobin 11.4 g/dL (14.1-18.0); Lymphocytes # 1.7 K/mm3 (0.7-4.5); Mean Corpuscular Volume 65.6 fl (80-94); Mean Platelet Volume 7.6 fl (7.4-10.4); Monocytes # 0.6 K/mm3 (0.1-1.0); Monocytes % 7.7 % (1.7-9.3); Neutrophils # 4.6 K/mm3 (1.8-7.8); Neutrophils % 64.2 % (37.0-80.0); Platelet Count 200 K/mm3 (142-424); Red Blood Count 5.44 M/mm3 (4.60-6.20); White Blood Count 7.2 K/mm3 (4.8-10.8)
[2021-10-12 13:18] LABS: Albumin Level 3.9 g/dl (3.5-5.0); Albumin/Globulin Ratio 1.4 (1.1-1.8); Alkaline Phosphatase 117 U/L (38-126); Anion Gap 7.8 mEq/L (5-15); Bilirubin,Total 0.9 mg/dl (0.2-1.3); Carbon Dioxide 31 mmol/L (22.0-30.0); Globulin 2.8 g/dL (1.3-3.2); Total Protein,Serum 6.7 g/dl (6.3-8.2)
[2021-10-12 13:19] LABS: Alanine Aminotransferase 20 U/L (12-78); Aspartate Amino Transferase 37 U/L (17-59); Glucose 111 mg/dl (74-100)
[2021-10-12 13:23] LABS: Bilirubin,Unconjugated 0.9 mg/dL (0.0-1.1)
[2021-10-12 13:34] LABS: Bilirubin,Direct 0.1 mg/dl (0.0-0.4); Bilirubin,Indirect 0.9 mg/dL (0.0-0.9)
[2021-10-12 13:54] LABS: Ferritin 54.2 ng/ml (17.9-464)
[2021-10-12 14:05] VITALS: BP 148/74; PULSE 68; RESP 20; TEMP 36.9; O2SAT 95
[2021-10-12 15:15] VITALS: BP 112/74; PULSE 68; RESP 20; TEMP 36.9; O2SAT 95
== END ==
PROVIDERS: PCP Internal Medicine Adolescent Medicine; Visit Provider Internal Medicine Adolescent Medicine
DX: E88.01 Alpha-1-antitrypsin deficiency (principal); R79.89 Other specified abnormal findings of blood chemistry
CPT/HCPCS: 80053; 80076; 82728; 85025; 96365; 96366; J0256

== ENCOUNTER 2021-10-19 13:07 | Outpatient (CLI) | payer MEDICARE, BC, SELFPAY ==
[2021-10-19 13:20] VITALS: BP 139/67; PULSE 74; RESP 20; O2SAT 97
[2021-10-19 15:15] VITALS: BP 130/58; PULSE 71; RESP 20
== END 2021-10-19 15:15 | disposition home or self-care (01) ==
LOC: INF 13:08
PROVIDERS: PCP Internal Medicine Adolescent Medicine; Visit Provider Internal Medicine Adolescent Medicine
DX: E88.01 Alpha-1-antitrypsin deficiency (principal)
CPT/HCPCS: 96365; J0256

== ENCOUNTER 2021-10-26 13:32 | Outpatient (CLI) | payer MEDICARE, BC, SELFPAY ==
[2021-10-26 14:00] VITALS: BP 162/93; PULSE 87; RESP 20; O2SAT 97
[2021-10-26 15:45] VITALS: BP 155/86; PULSE 82; RESP 20; O2SAT 96
== END 2021-10-26 15:45 | disposition home or self-care (01) ==
LOC: INF 13:32
PROVIDERS: PCP Internal Medicine Adolescent Medicine; Visit Provider Internal Medicine Adolescent Medicine
DX: E88.01 Alpha-1-antitrypsin deficiency (principal)
CPT/HCPCS: 96365; J0256

== ENCOUNTER 2021-11-02 12:10 | Outpatient (CLI) | payer MEDICARE, BC, SELFPAY ==
[2021-11-02 12:17] VITALS: BMI 23.6
--- NOTE | 2021-11-02 12:18 | XR_ITS ---
FINAL REPORT TECHNIQUE: Single view chest CLINICAL HISTORY: SOA, chronic cough. COMPARISON: 01/08/2021 FINDINGS: A single view of the chest was obtained. The heart and mediastinum are within normal limits. The lungs are hyperinflated consistent with COPD. There is bibasilar scarring versus atelectasis, worse from prior exam. There is no pneumothorax. Osseous structures are unremarkable. IMPRESSION: Worsening bibasilar scarring or atelectasis. Reviewed, Interpreted and Dictated by Hal Pastor III, MD Transcribed by Araceli Brambila Authenticated and [facility]
[2021-11-02 12:40] VITALS: BP 162/100; PULSE 79; RESP 22; O2SAT 97
[2021-11-02 14:40] VITALS: BP 158/95; PULSE 82; RESP 22; O2SAT 96
== END 2021-11-02 14:40 | disposition home or self-care (01) ==
LOC: INF 12:11
PROVIDERS: PCP Internal Medicine Adolescent Medicine; Visit Provider Internal Medicine Adolescent Medicine
DX: E88.01 Alpha-1-antitrypsin deficiency (principal)
CPT/HCPCS: 71045; 96365; J0256

== ENCOUNTER 2021-11-09 12:48 | Outpatient (CLI) | payer MEDICARE, BC, SELFPAY ==
[2021-11-09 13:25] VITALS: BP 159/81; PULSE 86; RESP 20; O2SAT 95
[2021-11-09 14:35] VITALS: BP 149/69; PULSE 72; RESP 18
== END 2021-11-09 15:00 | disposition home or self-care (01) ==
LOC: INF 12:49
PROVIDERS: PCP Internal Medicine Adolescent Medicine; Visit Provider Internal Medicine Adolescent Medicine
DX: E88.01 Alpha-1-antitrypsin deficiency (principal)
CPT/HCPCS: 96365; J0256; J2405

== ENCOUNTER 2021-11-16 14:02 | Outpatient (CLI) | payer MEDICARE, BC, SELFPAY ==
[2021-11-16 14:20] VITALS: BP 169/97; PULSE 84; RESP 22; TEMP 36.6; O2SAT 94
[2021-11-16 16:10] VITALS: BP 150/85; PULSE 89; RESP 20; O2SAT 96
== END 2021-11-16 16:10 | disposition home or self-care (01) ==
LOC: INF 14:02
PROVIDERS: PCP Internal Medicine Adolescent Medicine; Visit Provider Internal Medicine Adolescent Medicine
DX: E88.01 Alpha-1-antitrypsin deficiency (principal)
CPT/HCPCS: 96365; J0256

== ENCOUNTER 2021-11-22 13:33 | Outpatient (CLI) | payer MEDICARE, BC, SELFPAY ==
[2021-11-22 13:43] VITALS: BMI 24.7
[2021-11-22 14:00] VITALS: BP 144/88; PULSE 92; RESP 18; O2SAT 96
[2021-11-22 14:50] LABS: Ferritin 97.9 ng/ml (17.9-464)
[2021-11-22 15:05] VITALS: BP 127/69; PULSE 92; RESP 18
== END 2021-11-22 16:15 | disposition home or self-care (01) ==
LOC: INF 13:34
PROVIDERS: PCP Internal Medicine Adolescent Medicine; Visit Provider Internal Medicine Adolescent Medicine
DX: E88.01 Alpha-1-antitrypsin deficiency (principal); R79.89 Other specified abnormal findings of blood chemistry
CPT/HCPCS: 82728; 96365; J0256

== ENCOUNTER 2021-11-30 12:25 | Outpatient (CLI) | payer MEDICARE, BC, SELFPAY ==
[2021-11-30 13:00] VITALS: BP 139/71; PULSE 68; RESP 20; TEMP 36.9; O2SAT 95
[2021-11-30 14:00] VITALS: BP 135/74; PULSE 68; RESP 20; TEMP 36.9; O2SAT 95
[2021-11-30 15:34] VITALS: BP 142/74; PULSE 68; RESP 20; TEMP 36.9; O2SAT 95
[2021-11-30 15:36] VITALS: BP 142/74; PULSE 78; RESP 20; TEMP 36.9; O2SAT 95
== END 2021-11-30 15:43 | disposition home or self-care (01) ==
PROVIDERS: PCP Internal Medicine Adolescent Medicine; Visit Provider Internal Medicine Adolescent Medicine
DX: E88.01 Alpha-1-antitrypsin deficiency (principal)
CPT/HCPCS: 96365; 99195; J0256

== ENCOUNTER 2021-12-07 14:14 | Outpatient (CLI) | payer MEDICARE, BC, SELFPAY ==
[2021-12-07 14:19] VITALS: BMI 24.3
[2021-12-07 14:40] VITALS: BP 153/89; PULSE 85; RESP 22; O2SAT 95
[2021-12-07 15:23] LABS: Ferritin 86.5 ng/ml (17.9-464)
[2021-12-07 16:12] VITALS: BP 150/88; PULSE 90; RESP 22; O2SAT 95
== END 2021-12-07 16:22 | disposition home or self-care (01) ==
PROVIDERS: PCP Internal Medicine Adolescent Medicine; Visit Provider Internal Medicine Adolescent Medicine
DX: E88.01 Alpha-1-antitrypsin deficiency (principal); R79.89 Other specified abnormal findings of blood chemistry
CPT/HCPCS: 82728; 96365; J0256

== ENCOUNTER 2021-12-14 12:55 | Outpatient (CLI) | payer MEDICARE, BC, SELFPAY ==
[2021-12-14 13:25] VITALS: BP 155/87; PULSE 77; RESP 18; O2SAT 98
[2021-12-14 14:55] VITALS: BP 133/64; PULSE 80; RESP 18
== END 2021-12-14 15:20 | disposition home or self-care (01) ==
LOC: INF 12:55
PROVIDERS: PCP Internal Medicine Adolescent Medicine; Visit Provider Internal Medicine Adolescent Medicine
DX: E88.01 Alpha-1-antitrypsin deficiency (principal)
CPT/HCPCS: 96365; J0256

== ENCOUNTER 2021-12-24 11:44 | Outpatient (CLI) | payer MEDICARE, BC, SELFPAY ==
--- NOTE | 2021-12-24 11:51 | XR_ITS ---
FINAL REPORT CLINICAL HISTORY: DIARRHEA COMPARISON: Chest radiograph dated January 08, 2021 FINDINGS: ABDOMEN COMPLETE INCL CHEST Chest: A single view of the chest demonstrates hyperinflation consistent COPD. There are areas of scarring. There is a worsening opacity in the medial right thorax which could represent scarring but a mass is not excluded. Abdomen: Flat and upright views of the abdomen demonstrate a nonobstructive gas pattern. There is a moderate amount of retained stool. There is no free air. IMPRESSION: Moderate amount of retained stool. Worsening opacity in medial right thorax, could represent scarring but mass not excluded. Recommend follow-up chest CT with contrast. Reviewed, Interpreted and Dictated by Hal Pastor III, MD Transcribed by Ninoska Ulrich Authenticated and [facility]
[2021-12-24 12:28] VITALS: BMI 24.7
[2021-12-24 12:47] VITALS: BP 102/64; PULSE 99; RESP 22; TEMP 36.4; O2SAT 95
[2021-12-24 13:05] LABS: Basophils % 0.4 % (0.1-2.0); Eosinophils # 0.2 K/mm3 (0.0-0.4); Eosinophils % 2.2 % (0.1-12.0); Hematocrit 35.2 % (42.0-52.0); Hemoglobin 11.4 g/dL (14.1-18.0); Lymphocytes # 0.9 K/mm3 (0.7-4.5); Mean Corpuscular HGB Conc 32.5 g/dL (31.8-35.4); Mean Corpuscular Volume 64.6 fl (80-94); Mean Platelet Volume 8.7 fl (7.4-10.4); Monocytes # 0.5 K/mm3 (0.1-1.0); Neutrophils % 76.3 % (37.0-80.0); Platelet Count 147 K/mm3 (142-424); Red Blood Count 5.45 M/mm3 (4.60-6.20); Red Cell Distribution Width 17.1 % (11.5-17.5); White Blood Count 6.6 K/mm3 (4.8-10.8)
[2021-12-24 13:10] LABS: Chloride 93 mmol/L (98-107); Potassium 3.5 mmoL/L (3.5-5.1); Sodium 135 mmol/L (136-145)
[2021-12-24 13:12] LABS: Amylase 59 U/L (30-110); Blood Urea Nitrogen 35 mg/dl (9-20); Creatinine Clearance Estimated 38 mL/min (50-200); Estimated Glomerular Filt Rate 42 ml/min (>60); GFR (African American) 50 ML/MIN (>60)
[2021-12-24 13:13] LABS: Alanine Aminotransferase 54 U/L (12-78); Albumin Level 3.6 g/dl (3.5-5.0); Albumin/Globulin Ratio 1.2 (1.1-1.8); Alkaline Phosphatase 222 U/L (38-126); Anion Gap 14.5 mEq/L (5-15); Aspartate Amino Transferase 105 U/L (17-59); Bilirubin,Total 1.5 mg/dl (0.2-1.3); Carbon Dioxide 31 mmol/L (22.0-30.0); Globulin 2.9 g/dL (1.3-3.2); Glucose 113 mg/dl (74-100); Total Protein,Serum 6.5 g/dl (6.3-8.2)
[2021-12-24 13:45] VITALS: BP 108/68; PULSE 102; RESP 18; O2SAT 94
[2021-12-24 14:45] VITALS: BP 110/62; PULSE 94; RESP 18; TEMP 36.6; O2SAT 95
== END 2021-12-24 15:00 | disposition home or self-care (01) ==
PROVIDERS: PCP Internal Medicine Adolescent Medicine; Visit Provider Internal Medicine Adolescent Medicine
DX: R19.7 Diarrhea, unspecified (principal)
CPT/HCPCS: 74021; 80053; 82150; 85025; 96360; 96361; 96365; J0256

== ENCOUNTER 2021-12-26 13:09 | Inpatient (IN) | payer MEDICARE, BC, SELFPAY ==
[2021-12-26] VITALS (39 sets, daily range): BP systolic 69–141; BP diastolic 39–73; PULSE 82–138; RESP 13–22; TEMP 36.6–36.7; O2SAT 90–98; BMI 23.0; BMI 23.8
--- NOTE | 2021-12-26 13:18 | HMH.EDGENADL ---
Discharge Plan Disposition Patient Disposition: Admitted As Inpatient Condition: Serious Prescriptions Prescriptions: No Action loperamide 2 MG capsule 2 mg PO NEEDED PRN (Reason: Diarrhea) L.acidoph, paracasei,B. lactis 1 EACH capsule 1 each PO DAILY losartan-hydrochlorothiazide 1 EACH tablet 1 each PO DAILY fluticasone propion-salmeterol [Advair Diskus] 28 PUFF blister with device 1 ea inhalation BID codeine-guaifenesin 5 ML liquid 5 ml PO NEEDED PRN (Reason: Cough) albuterol sulfate [ProAir HFA] 8.5 GM HFA aerosol inhaler 2 puffs inhalation NEEDED PRN (Reason: Shortness Of Breath) guaifenesin 400 MG tablet 400 mg PO BID tamsulosin 0.4 MG capsule 0.4 mg PO DAILY Referrals Follow up/Referrals: Ricky Shaver MD [Primary Care Provider] - See instructions Clinical Impressions Clinical Impression: Atrial fibrillation with RVR, Dehydration, Acute renal failure Discharge ED Provider: Mago Lynch General Adult HPI General Chief complaint: Nausea/Vomiting/Diarrhea Stated complaint: Dr. Sivakumar LOBO referral Time Seen by Provider: 12/26/21 13:18 Mode of Arrival: Wheelchair Source of Information: Patient and Spouse Limitations: No Limitations History of Present Illness HPI narrative: The patient presents to the emergency department complaining of generalized weakness chronic shortness of breath and diarrhea. He saw his primary care physician on Friday. He has not felt better since then and was told to come to the emergency department. The patient has emphysema. He is on home oxygen. Related Data Home Medications Medication Instructions Recorded Confirmed albuterol sulfate 90 mcg/actuation 2 puffs inhalation NEEDED PRN 03/28/17 12/26/21 aerosol inhaler (ProAir HFA) Shortness Of Breath codeine 10 mg-guaifenesin 100 mg/5 5 ml PO NEEDED PRN Cough 03/28/17 12/26/21 mL oral liquid fluticasone 500 mcg-salmeterol 50 1 ea inhalation BID lungs 03/28/17 12/26/21 mcg/dose blistr powdr for inhalation (Advair Diskus) guaifenesin 400 mg tablet 400 mg PO BID Cough/cold 03/28/17 12/26/21 tamsulosin 0.4 mg capsule 0.4 mg PO DAILY PROSTATE 12/25/18 12/26/21 L.acidoph, paracasei,B. lactis 10 1 each PO DAILY Supplement 11/04/19 12/26/21 billion cell capsule loperamide 2 mg capsule 2 mg PO NEEDED PRN Diarrhea 11/04/19 12/26/21 losartan 50 mg-hydrochlorothiazide 1 each PO DAILY Hypertension 06/30/20 12/26/21 12.5 mg tablet Allergies Allergy/AdvReac Type Severity Reaction Status Date / Time No Known Allergies Allergy Verified 07/13/21 15:10 [facility] Medical History [id number] deficiency Benign prostatic hyperplasia Beta-thalassemia History of bladder carcinoma History of chemotherapy Hypertension Lung disease On home oxygen therapy Surgical History History of appendectomy Family History Other No significant family history Social History (Updated 12/26/21 @ 13:49 by Nargis Gongora RN) Smoking Status: Never smoker second hand exposure: No alcohol intake: current current occupational status: retired Travel in the last 8 weeks: None household members: spouse housing: house current occupation: SELF EMPLOYED current occupational exposures/hazards: Yes caffeine: Yes ROS Obtained: Yes All systems reviewed & no additional complaints except as documented Physical Exam General General appearance: alert and in no apparent distress Head Head exam: atraumatic, normocephalic and normal inspection Eye Eye exam: Present normal appearance, PERRL, EOMI and other (Pale conjunctiva); Absent scleral icterus ENT ENT exam: Present normal exam, normal oropharynx, mucous membranes moist, TM's normal bilaterally and normal external ear exam Neck Nec
--- NOTE | 2021-12-26 13:19 | ECG_ITS ---
APPROVED REPORT Exam: Resting ECG HR:128 bpm ECG Measurements Heart Rate 128 AXES QRSd 93 QRS 102 QT 291 T 56 QTc 367 Conclusion ATRIAL FIBRILLATION WITH RAPID VENTRICULAR RESPONSE WITH ABERRANT CONDUCTION OR VENTRICULAR PREMATURE COMPLEXES INDETERMINATE AXIS LOW QRS VOLTAGE IN PRECORDIAL LEADS [QRS DEFLECTION < 1.0 mV IN CHEST LEADS] PATTERN CONSISTENT WITH PULMONARY DISEASE ABNORMAL ECG INTERPRETATION BASED ON A DEFAULT AGE OF 38 YEARS UNCONFIRMED REPORT Electronically signed by : Ricky Shaver MD 12/29/2021 17:45:15
--- NOTE | 2021-12-26 13:21 | XR_ITS ---
FINAL REPORT CLINICAL HISTORY: Dyspnea COMPARISON: 11/02/2021 FINDINGS: SINGLE-VIEW CHEST The heart size is normal. The mediastinum is normal. The lungs are hyperinflated consistent with COPD. There is bilateral scarring, stable. There is no pneumothorax. IMPRESSION: No acute cardiopulmonary process. Reviewed, Interpreted and Dictated by Hal Pastor III, MD Transcribed by Diana Wade Authenticated and [facility]
[2021-12-26 13:41] LABS: Coronavirus 19, PCR Not Detected (NotDetected); Influenza A, PCR Not Detected (NotDetected); Influenza B, PCR Not Detected (NotDetected)
[2021-12-26 13:48] LABS: Chloride 94 mmol/L (98-107); Potassium 3.6 mmoL/L (3.5-5.1); Sodium 135 mmol/L (136-145)
[2021-12-26 13:50] LABS: Blood Urea Nitrogen 43 mg/dl (9-20); Creatinine Clearance Estimated 27 mL/min (50-200); Estimated Glomerular Filt Rate 30 ml/min (>60); GFR (African American) 37 ML/MIN (>60)
[2021-12-26 13:51] LABS: Alanine Aminotransferase 60 U/L (12-78); Albumin Level 3.4 g/dl (3.5-5.0); Alkaline Phosphatase 268 U/L (38-126); Anion Gap 15.6 mEq/L (5-15); Aspartate Amino Transferase 96 U/L (17-59); Bilirubin,Total 2.1 mg/dl (0.2-1.3); Carbon Dioxide 29 mmol/L (22.0-30.0); Globulin 3.3 g/dL (1.3-3.2); Glucose 133 mg/dl (74-100); Total Protein,Serum 6.7 g/dl (6.3-8.2)
[2021-12-26 13:52] LABS: Calcium 8.2 mg/dl (8.4-10.2); Lactic Acid 2.9 mmol/L (0.7-2.1)
[2021-12-26 13:54] LABS: Basophils # 0.1 K/mm3 (0-0.2); Basophils % 0.7 % (0.1-2.0); Eosinophils # 0.4 K/mm3 (0.0-0.4); Eosinophils % 3.7 % (0.1-12.0); Hematocrit 38.3 % (42.0-52.0); Hemoglobin 12.2 g/dL (14.1-18.0); Mean Corpuscular HGB Conc 31.9 g/dL (31.8-35.4); Mean Corpuscular Hemoglobin 20.5 pg (27.0-31.2); Mean Corpuscular Volume 64.4 fl (80-94); Mean Platelet Volume 7.5 fl (7.4-10.4); Monocytes # 0.9 K/mm3 (0.1-1.0); Monocytes % 8.8 % (1.7-9.3); Neutrophils # 6.6 K/mm3 (1.8-7.8); Neutrophils % 66.8 % (37.0-80.0); Platelet Count 121 K/mm3 (142-424); Red Blood Count 5.95 M/mm3 (4.60-6.20); Red Cell Distribution Width 16.8 % (11.5-17.5); White Blood Count 9.9 K/mm3 (4.8-10.8)
[2021-12-26 14:01] LABS: NT Pro Brain Natriuretic Pep. 9150 pg/mL (0-450)
[2021-12-26 14:04] LABS: Troponin I 0.06 ng/ml (0.00-0.034)
[2021-12-26 14:27] LABS: Troponin I 0.06 ng/ml (0.00-0.034)
[2021-12-26 14:31] LABS: Free Thyroxine Index 3.6 ug/dL (5.93-13.13); Triiodothryronine (T3) Uptake 40 % (23.5-40.5)
--- NOTE | 2021-12-26 14:31 | PC.NURSE ---
attempted to call office no answer, will try again later
[2021-12-26 14:37] LABS: Thyroid Stimulating Hormone 1.73 uIU/mL (0.465-4.68)
--- NOTE | 2021-12-26 14:47 | PC.NURSE ---
paged Dr Shaver after several attempts of calling the office
--- NOTE | 2021-12-26 15:07 | PC.NURSE ---
2nd page out for Dr Shaver
--- NOTE | 2021-12-26 15:08 | PC.NURSE ---
TOTAL SEPSIS BOLUS NOT GIVEN DUE TO ELEVATED BNP.
--- NOTE | 2021-12-26 15:11 | PC.NURSE ---
[facility] office called back, office staff said that Dr Shaver is with patients and would call back when he had time to call back.
--- NOTE | 2021-12-26 15:15 | PC.NURSE ---
PT AND FAMILY AWARE OF NEED FOR URINE SAMPLE. PT STATES HE IS UNABLE TO VOID AT THIS TIME. URINAL AT BEDSIDE.
--- NOTE | 2021-12-26 15:26 | PC.NURSE ---
SPEAKING WITH DR. BETANCUR IN REGARDS TO POSSIBLE ADMISSION.
--- NOTE | 2021-12-26 15:32 | PC.NURSE ---
care management called for admission
--- NOTE | 2021-12-26 16:00 | PC.NURSE ---
Pt was given bed 216, told RN
[2021-12-26 16:58] LABS: Troponin I 0.04 ng/ml (0.00-0.034)
--- NOTE | 2021-12-26 17:06 | PC.NURSE ---
patient came to floor at 17:00 from ED by poncho
--- NOTE | 2021-12-26 17:27 | XR_ITS ---
PROCEDURE INFORMATION: Exam: XR Complete Acute Abdomen Series Including Chest Exam date and time: 12/26/2021 6:28 PM Age: 81 years old Clinical indication: Bloating; Additional info: Possible obstruction TECHNIQUE: Imaging protocol: Radiologic exam. Complete acute abdomen series, including 2 or more views of the abdomen and a single view chest. COMPARISON: CR XR CHEST PORTABLE 12/26/2021 1:35 PM FINDINGS: Lungs: Moderate hyperexpansion and hyperlucency with diaphragmatic flattening suggesting COPD. Pulmonary vasculature grossly normal. No gross pulmonary infiltrates or edema. Chronic bandlike fibrosis and atelectasis in the mid and basilar lung collins unchanged. 8 mm calcification projecting over the inferior spleen, probably an incidental granuloma. Small intrapelvic phleboliths noted. Pleural spaces: No pleural effusion. No pneumothorax. Heart/Mediastinum: Heart size normal. No tracheal/mediastinal shift. Gastrointestinal tract: Nonobstructive bowel gas pattern. Limited assessment of the small bowel due to the paucity of small bowel gas, with no grossly dilated small bowel loops identified. Small to average volume colonic gas and stool. Intraperitoneal space: No intraperitoneal free air is evident. Organs: No evidence of organomegaly. Vasculature: Mild aortic ectasia/tortuosity and calcific atherosclerosis. Bones/joints: Mild rightward convexity lumbar rotoscoliosis. Osteopenia. Soft tissues: Normal. Other findings: No gross soft tissue masses. IMPRESSION: 1. No acute intrathoracic or intra-abdominal/intrapelvic process is identified radiographically. 2. COPD and chronic basilar fibrosis/atelectasis. 3. Bowel gas pattern is grossly nonobstructive although the paucity of small bowel gas limits the small bowel assessment. 4. Additional nonemergent findings detailed above.
--- NOTE | 2021-12-26 17:31 | EXP.HP ---
History of Present Illness *Admission Date: 12/26/21 *Reason for visit:: Weakness and abdominal bloating *History of present illness: 81-year-old white male with history of alpha 1 antitrypsin deficiency who receives weekly Prolastin infusions and takes home inhaler therapy and home oxygen. He, in spite of this significant emphysema and alpha-1 antitrypsin issue maintains excellent functional status. He saw me in my office last week for diarrhea, weakness and was found to be mildly dehydrated. We administered 1 L of saline as an outpatient, did labs which showed minimal dehydration but otherwise were unremarkable, and attempted to get a stool PCR but his diarrhea had stopped. He felt better and was discharged home from the outpatient arena but over the last couple of days is felt worse. He notes he is had no bowel movements for about 48 hours and he feels like his belly is bloated. Very weak and increasing shortness of air, went to the emergency department today. ER work-up revealed atrial fibrillation with rapid ventricular response, evidence of dehydration with acute kidney injury and elevated BNP. Admitted to hospital for IV fluids, on IV Cardizem drip. I evaluated him on second floor today. [facility] Medical History [id number] deficiency Benign prostatic hyperplasia Beta-thalassemia History of bladder carcinoma History of chemotherapy Hypertension Lung disease On home oxygen therapy Surgical History History of appendectomy Family History No significant family history Social History (Updated 12/26/21 @ 17:14 by Wilda Anderson RN) Smoking Status: Never smoker second hand exposure: No alcohol intake: current current occupational status: retired Travel in the last 8 weeks: None household members: spouse housing: house current occupation: SELF EMPLOYED current occupational exposures/hazards: Yes caffeine: Yes Meds Home Medications and Allergies Home Medications Medication Instructions Recorded Confirmed Type albuterol sulfate 90 mcg/actuation 2 puffs inhalation NEEDED PRN 03/28/17 12/26/21 History aerosol inhaler (ProAir HFA) Shortness Of Breath codeine 10 mg-guaifenesin 100 mg/5 5 ml PO NEEDED PRN Cough 03/28/17 12/26/21 History mL oral liquid fluticasone 500 mcg-salmeterol 50 1 ea inhalation BID lungs 03/28/17 12/26/21 History mcg/dose blistr powdr for inhalation (Advair Diskus) guaifenesin 400 mg tablet 400 mg PO BID Cough/cold 03/28/17 12/26/21 History tamsulosin 0.4 mg capsule 0.4 mg PO DAILY PROSTATE 12/25/18 12/26/21 History L.acidoph, paracasei,B. lactis 10 1 each PO DAILY Supplement 11/04/19 12/26/21 History billion cell capsule loperamide 2 mg capsule 2 mg PO NEEDED PRN Diarrhea 11/04/19 12/26/21 History losartan 50 mg-hydrochlorothiazide 1 each PO DAILY Hypertension 06/30/20 12/26/21 History 12.5 mg tablet New Prescriptions to Start Prescriptions: Allergies Allergy/AdvReac Type Severity Reaction Status Date / Time No Known Allergies Allergy Verified 07/13/21 15:10 Exam Data for Last 24 hours Vital signs and Labs for Last 24 Hours: Temp Pulse Resp BP Pulse Ox 98 F 108 H 16 106/60 L 95 12/26/21 16:35 12/26/21 16:35 12/26/21 16:35 12/26/21 16:35 12/26/21 16:24 Laboratory Results - last 24 hr 12/26/21 13:27: WBC 9.9 D, RBC 5.95, Hgb 12.2 L, Hct 38.3 L, MCV 64.4 L, MCH 20.5 L, MCHC 31.9, RDW 16.8, Plt Count 121 L, MPV 7.5, Neut % (Auto) 66.8, Lymph % (Auto) 20.0, [place] % (Auto) 8.8, Eos % (Auto) 3.7, Baso % (Auto) 0.7, Neut # (Auto) 6.6, Lymph # (Auto) 2.0, [place] # (Auto) 0.9, Eos # (Auto) 0.4, Baso # (Auto) 0.1 12/26/21 13:27: Sodium 135 L, Potassium 3.6, Chloride 94 L, Carbon Dioxide 29, Anion Gap 15.6 H, BUN 43 H, Creatinine 2.10 H D, Estimated Creat Clear 27
[2021-12-26 17:40] LABS: Reflex Lactic Add Lactic Reflex
[2021-12-26 18:47] LABS: Lactic Acid Follow Up (RFLX 1) 1.9 mmol/L (0.7-2.1)
[2021-12-26 20:30] LABS: Troponin I 0.04 ng/ml (0.00-0.034)
--- NOTE | 2021-12-26 21:24 | PC.NURSE ---
2123 dr alejandre notified of pt b/p with sbp less than 90 with maps less than 65; no edema, diltiazem currently at 5ml/hr with hr 100-115; no acute distress, note new order to give 200ml bolus of NS repeated and verified and discontinue losartin hctz repeated and verified.
--- NOTE | 2021-12-26 22:30 | PC.WOUNDNOTE ---
2231 dilitizem increased to 10ml/hr for HR 113-121
[2021-12-27] VITALS (36 sets, daily range): BP systolic 62–157; BP diastolic 41–82; PULSE 60–112; RESP 16–24; TEMP 36.4–36.7; O2SAT 91–97; BMI 26.1
--- NOTE | 2021-12-27 05:16 | PC.NURSE ---
pt restless through the night, states when he shuts his eyes he sees things, diltiazem drip infusing at 10ml/hr, pt remains in atrial fib with rate 98-104, pt with low b/p initially in which 200ml iv bolus given of NS, b/p improved after bolus, pt voided x1 marty colored urine, pt without edema, skin pwd, pt is alert and oriented, pt states he feels bad, lung sounds diminished, pt with history of emphysema related to alpha 1 antitrypsin deficiency, pt with production intermittant cough most of night, pt denies pain, pt is soa and states he is like this at home and wears 02 at 4L at home, no other issues or concerns at this time, no acute distress noted.
--- NOTE | 2021-12-27 05:49 | CA_ITS ---
APPROVED REPORT EXAM: Comprehensive 2D, Doppler, and color-flow Echocardiogram Quarter Seamer: Rosa Escobedo CRT Ht: 5 ft 9 in Wt: 160lbs BSA: 1.88 BP: 106/60 mmHg Indications: Afib, COPD, Shortness of Breath, Renal failure, BPH, home o2, HX bladder CA, chemo 2D Dimensions LVOT 1.81 cm (M/F) 1.5-2.5 M-Mode Dimensions RVDd 3.47 cm (0.9-2.6) LA Diam 4.14 cm (1.9-4.0) LVDd 3.80 cm (3.5-5.7) Ao Diam 3.77 cm (2.0-3.7) LVDs 2.33 cm (3.5-5.7) IVSd 1.50 cm (0.6-1.1) PWd 0.90 cm (0.6-1.1) EF (Teich) 69.80% FS 38.70% EDV (Teich) 62.00 mL TAPSE 1.79 (<1.7) ESV (Teich) 18.70 mL LV Diastology E Decel Time 100.00 (160-240 msec) E/A Ratio 2.27 Aortic Valve AO Peak GR. 4.30 mmHg Mitral Valve MV A Velocity 37.00 (40-130 cm/s) E/A Ratio 2.27 MV Decel. Time 100.00 (160-240 ms) Pulmonary Valve PV Peak Velocity 112.00 (50-150 cm/s) Tricuspid Valve TR P. Velocity 311.00 cm/s RAP Estimate 10.00 mmHg RVSP 48.70 mmHg Left Ventricle Left atrium is mildly enlarged, left ventricle is normal size mild concentric left ventricular hypertrophy, estimated ejection fraction 55% with no regional wall motion abnormality, diastolic parameters are inconclusive. Right Ventricle Right atrium and right ventricle are mildly enlarged with normal contractility. Aortic Valve Aortic valve is minimally thickened and fibrosed there is no aortic stenosis aortic insufficiency. Mitral Valve Mitral valve is grossly normal, there is trace mitral regurgitation. Tricuspid Valve Tricuspid valve grossly normal, there is trace tricuspid regurgitation, tricuspid regurgitation jet velocity is inadequate for calculation of the right ventricular systolic pressure. Pulmonic Valve Pulmonic valve is poorly visualized. Great Vessels Aortic root is normal size. Inferior vena cava is normal size with normal inspiratory collapse. Pericardium No significant pericardial effusion noted. Conclusion 1. Biatrial enlargement, normal left ventricular size, mild concentric left ventricular hypertrophy, estimated ejection fraction 55% with no regional wall motion abnormality, diastolic parameters are inconclusive. 2. Mildly enlarged right ventricle with normal contractility. 3. Trace mitral and tricuspid regurgitation. 4. No significant pericardial effusion noted. 5. Inferior vena cava is normal size with normal inspiratory collapse. Electronically signed by : Christian Silveira MD 12/28/2021 15:06:04
[2021-12-27 06:08] LABS: Chloride 103 mmol/L (98-107); Sodium 135 mmol/L (136-145)
[2021-12-27 06:09] LABS: Potassium 3.4 mmoL/L (3.5-5.1)
[2021-12-27 06:10] LABS: Lactic Acid 1.1 mmol/L (0.7-2.1)
[2021-12-27 06:11] LABS: Blood Urea Nitrogen 44 mg/dl (9-20); Creatinine Clearance Estimated 37 mL/min (50-200); Estimated Glomerular Filt Rate 39 ml/min (>60); GFR (African American) 47 ML/MIN (>60)
[2021-12-27 06:12] LABS: Anion Gap 11.4 mEq/L (5-15); Carbon Dioxide 24 mmol/L (22.0-30.0); Glucose 113 mg/dl (74-100)
--- NOTE | 2021-12-27 08:17 | EXP.PHA.VTE ---
[facility] Pharmacy VTE Monitoring Patient Demographics Admission date: 12/27/21 Report Date: 12/27/21 Time: 08:17 Patient Allergies No Known Allergies Allergy (Verified 07/13/21 15:10) Height: 1.75 m Weight: 80.059 kg Current Active Problems (Updated 12/26/21 @ 17:35 by Ricky Shaver MD) Abdominal distention (Acute) Acute kidney injury (Acute) Atrial fibrillation with RVR (Acute) Dehydration (Acute) Acute renal failure (Acute) VTE Risk Labs: VTE Related Lab Results Hgb 12.2 g/dL (14.1-18.0) L 12/26/21 13:27 Hct 38.3 % (42.0-52.0) L 12/26/21 13:27 Plt Count 121 K/mm3 (142-424) L 12/26/21 13:27 BUN 44 mg/dl (9-20) H 12/27/21 05:45 Creatinine 1.70 mg/dl (0.66-1.25) H 12/27/21 05:45 Estimated Creat Clear 37 mL/min (50-200) 12/27/21 05:45 VTE Score: 4 VTE Risk Level: Low Risk Prophylaxis VTE Prophylaxis Ordered?: Yes Types of VTE Prophylaxis: Pharmacological Location of Applied Device: Not Applicable Pharmacologic Type: Enoxaparin
--- NOTE | 2021-12-27 08:54 | EXP.PN ---
Subjective *Date: 12/27/21 *Time: 08:54 Interval history: Patient stated he did not sleep well. He had some problems with unusual visions when he closed his eyes of unusual dream sequences. He however did not have any hallucinatory activity when his eyes were open and nurses did not report any unusual behavior issues overnight. He did eat fairly well yesterday, had no nausea or vomiting. Has had no bowel movements but continues to pass quite a bit of flatus. Does not have any chest pain. Notes that his breathing is a little challenging but it is about baseline per his report. Exam Data for Last 24 hours Vital signs and Labs for Last 24 Hours: Temp Pulse Resp BP Pulse Ox 97.6 F 112 H 18 147/71 H 93 L 12/27/21 08:11 12/27/21 08:00 12/27/21 08:00 12/27/21 08:00 12/27/21 08:00 Laboratory Results - last 24 hr 12/26/21 13:27: WBC 9.9 D, RBC 5.95, Hgb 12.2 L, Hct 38.3 L, MCV 64.4 L, MCH 20.5 L, MCHC 31.9, RDW 16.8, Plt Count 121 L, MPV 7.5, Neut % (Auto) 66.8, Lymph % (Auto) 20.0, [place] % (Auto) 8.8, Eos % (Auto) 3.7, Baso % (Auto) 0.7, Neut # (Auto) 6.6, Lymph # (Auto) 2.0, [place] # (Auto) 0.9, Eos # (Auto) 0.4, Baso # (Auto) 0.1 12/26/21 13:27: Sodium 135 L, Potassium 3.6, Chloride 94 L, Carbon Dioxide 29, Anion Gap 15.6 H, BUN 43 H, Creatinine 2.10 H D, Estimated Creat Clear 27, Estimated GFR 30 L, Est GFR ( Amer) 37 L D, Glucose 133 H, Calcium 8.2 L, Total Bilirubin 2.1 H, AST 96 H, ALT 60, Alkaline Phosphatase 268 H, Troponin I 0.06 H, NT-Pro-B Natriuret Pep 9150 H, Total Protein 6.7, Albumin 3.4 L, Globulin 3.3 H, Albumin/Globulin Ratio 1.0 L 12/26/21 13:27: Lactate 2.9 H 12/26/21 13:27: SARS-CoV-2 (PCR) Not detected, Influenza A Untype (PCR) Not detected, Influenza Type B (PCR) Not detected 12/26/21 13:27: Troponin I 0.06 H 12/26/21 13:27: TSH 1.73, Free T4 Index 3.6 L, Thyroxine (T4) 9.0, T3 Uptake 40 12/26/21 16:26: Troponin I 0.04 H 12/26/21 18:13: Lactate 1.9 12/26/21 20:04: Troponin I 0.04 H 12/27/21 05:45: Sodium 135 L, Potassium 3.4 L, Chloride 103, Carbon Dioxide 24, Anion Gap 11.4, BUN 44 H, Creatinine 1.70 H, Estimated Creat Clear 37, Estimated GFR 39 L, Est GFR ( Amer) 47 L D, Glucose 113 H, Calcium 7.0 L 12/27/21 05:45: Lactate 1.1 I & O for Last 24 hours: Intake & Output 12/24/21 12/25/21 12/26/21 12/27/21 11:59 11:59 11:59 11:59 Intake Total 3946 / 3946 Output Total 650 / 650 Balance 3296 / 3296 Weight 176 lb 8 oz Constitutional Comments: Alert, pleasant. Oriented x3. ENT exam clear. Lungs have poor air movement but at baseline for his significant panlobular emphysema from alpha-1 antitrypsin deficiency in the past. Heart rate better, in the low 100s, remains irregular. Perfusion is good. Blood pressure is nicely improved in the 140 range. No edema noted. Abdomen is distended but not tender, he has normal bowel sounds. Assessment and Plan *Assessment and plan (1) Atrial fibrillation with RVR: Status: Acute Category: Medical Code(s): I48.91 - Unspecified atrial fibrillation (2) Dehydration: Status: Acute Category: Medical Code(s): E86.0 - Dehydration (3) Acute kidney injury: Status: Acute Category: Medical Code(s): N17.9 - Acute kidney failure, unspecified (4) Abdominal distention: Status: Acute Category: Medical Code(s): R14.0 - Abdominal distension (gaseous) Plan 1. A. fib is improving vis-?-vis rate. Cautiously add metoprolol tartrate twice daily. Preliminary echocardiogram shows normal chamber size. Good function. 2. Pulmonary disease-complicates all aspects of her care. I will asked Dr. Pena to be involved given his complex emphysema and alpha-1 antitrypsin issues. Remains on Xopenex nebs for wheezing if needed. 3. BRYCE-resolving. Given patient's history of lung disease we will stop IV fluids and allow patient to drink ad morgan. 4. Abdominal distention-improving, I
--- NOTE | 2021-12-27 09:23 | EXP.PULM.CON ---
History of Present Illness History of present illness: Mr. Rodriguez is a 81-year-old male with history of COPD, alpha-1 antitrypsin deficiency on weekly infusions presented to the hospital with complaining of GI upset dehydration irregular heart rate along with worsening respiratory distress along with cough and productive phlegm. Symptoms started last Friday, progressively getting worse. [facility] Medical History (Updated 12/27/21 @ 10:57 by Jyoti Spencer MD) Xacje-[id number]-[id number] deficiency Benign prostatic hyperplasia Beta-thalassemia COPD exacerbation History of bladder carcinoma History of chemotherapy Hypertension Lung disease On home oxygen therapy Surgical History History of appendectomy Family History Other No significant family history Social History (Updated 12/26/21 @ 17:14 by Wilda Anderson, RN) Smoking Status: Never smoker second hand exposure: No alcohol intake: current current occupational status: retired Travel in the last 8 weeks: None household members: spouse housing: house current occupation: SELF EMPLOYED current occupational exposures/hazards: Yes caffeine: Yes Review of Systems Constitutional Constitutional: Reports anorexia, Reports body ache(s) and Reports fatigue Eyes Eyes: Denies eye discharge, Denies dry eyes, Denies irritation and Denies itchy eyes ENT Ears, Nose, Mouth, and Throat: Denies epistaxis, Denies facial pain, Denies lip swelling and Denies throat swelling *Cardiovascular Cardiovascular: Reports dyspnea and Reports dyspnea on exertion *Respiratory Respiratory: Reports chest congestion, Reports cough, Reports dyspnea, Reports dyspnea on exertion, Reports excessive phlegm production and Reports wheezing *Gastrointestinal Gastrointestinal: Reports abdominal pain and Reports diarrhea *Musculoskeletal Musculoskeletal: Reports myalgias and Reports other (No small joint swelling or Pain) Psychiatric Psychiatric: Denies homicidal ideation and Denies suicidal ideation Endocrine Endocrine: Reports fatigue and Denies heat intolerance Hematologic/Lymphatic Hematologic/Lymphatic: Denies easy bleeding and Denies lymphadenopathy Allergic/Immunologic Allergic/Immunologic: Denies itchy eyes, Denies lip swelling, Denies throat swelling and Reports wheezing Pulmonology Exam Inpatient Vital signs and Labs for Last 24 Hours: Temp Pulse Resp BP Pulse Ox 97.6 F 82 18 147/71 H 93 L 12/27/21 08:11 12/27/21 09:00 12/27/21 08:00 12/27/21 08:00 12/27/21 08:00 Laboratory Results - last 24 hr 12/26/21 13:27: WBC 9.9 D, RBC 5.95, Hgb 12.2 L, Hct 38.3 L, MCV 64.4 L, MCH 20.5 L, MCHC 31.9, RDW 16.8, Plt Count 121 L, MPV 7.5, Neut % (Auto) 66.8, Lymph % (Auto) 20.0, [place] % (Auto) 8.8, Eos % (Auto) 3.7, Baso % (Auto) 0.7, Neut # (Auto) 6.6, Lymph # (Auto) 2.0, [place] # (Auto) 0.9, Eos # (Auto) 0.4, Baso # (Auto) 0.1 12/26/21 13:27: Sodium 135 L, Potassium 3.6, Chloride 94 L, Carbon Dioxide 29, Anion Gap 15.6 H, BUN 43 H, Creatinine 2.10 H D, Estimated Creat Clear 27, Estimated GFR 30 L, Est GFR ( Amer) 37 L D, Glucose 133 H, Calcium 8.2 L, Total Bilirubin 2.1 H, AST 96 H, ALT 60, Alkaline Phosphatase 268 H, Troponin I 0.06 H, NT-Pro-B Natriuret Pep 9150 H, Total Protein 6.7, Albumin 3.4 L, Globulin 3.3 H, Albumin/Globulin Ratio 1.0 L 12/26/21 13:27: Lactate 2.9 H 12/26/21 13:27: SARS-CoV-2 (PCR) Not detected, Influenza A Untype (PCR) Not detected, Influenza Type B (PCR) Not detected 12/26/21 13:27: Troponin I 0.06 H 12/26/21 13:27: TSH 1.73, Free T4 Index 3.6 L, Thyroxine (T4) 9.0, T3 Uptake 40 12/26/21 16:26: Troponin I 0.04 H 12/26/21 18:13: Lactate 1.9 12/26/21 20:04: Troponin I 0.04 H 12/27/21 05:45: Sodium 135 L, Potassium 3.4 L, Chloride 103, Carbon Dioxide 24, Anion Gap 11.4, BUN 44 H, Creatinine 1.70 H, Estimated Creat Clear 37, Estimated GFR 39 L, Est GFR (Afri
--- NOTE | 2021-12-27 09:58 | HMH.PHAINT1 ---
Pharmacy Intervention Comments: Home medication reconciliation completed using outpatient pharmacy.
[2021-12-27 11:23] LABS: Basophils % 0.5 % (0.1-2.0); Eosinophils # 0.5 K/mm3 (0.0-0.4); Hematocrit 30.3 % (42.0-52.0); Lymphocytes # 1.5 K/mm3 (0.7-4.5); Lymphocytes % 18.8 % (10-50); Mean Corpuscular HGB Conc 32.9 g/dL (31.8-35.4); Mean Corpuscular Hemoglobin 21.1 pg (27.0-31.2); Mean Corpuscular Volume 64.2 fl (80-94); Mean Platelet Volume 11.2 fl (7.4-10.4); Monocytes # 0.7 K/mm3 (0.1-1.0); Monocytes % 8.6 % (1.7-9.3); Neutrophils # 5.4 K/mm3 (1.8-7.8); Neutrophils % 66.1 % (37.0-80.0); Platelet Count 132 K/mm3 (142-424); Red Blood Count 4.72 M/mm3 (4.60-6.20); Red Cell Distribution Width 16.9 % (11.5-17.5); White Blood Count 8.1 K/mm3 (4.8-10.8)
[2021-12-27 11:54] LABS: POC Glucose,Bedside 155 (70-110)
[2021-12-27 12:00] LABS: Microscopic, Urine URINE MICROSCOPIC (MICROSCOPIC)
[2021-12-27 12:04] LABS: Appearance,Urine CLEAR (Clear); Blood, Urine Negative (Negative); Color,Urine AMBER (Yellow); Glucose,Urine (UA) Negative (Negative); Ketones,Urine Negative (Negative); Leukocyte Esterase,Urine Negative (Negative); Nitrate,Urine Negative (Negative); PH,Urine 5.5 (5.0-8.5); Protein,Urine 1+ (Negative)
[2021-12-27 12:05] LABS: Bilirubin,Urine Negative (Negative)
[2021-12-27 12:15] LABS: RBC,Urine Occasional #/hpf (0-3); WBC,Urine Occasional #/hpf (0-3)
[2021-12-27 12:16] LABS: Amorphous Sediment,Urine Trace /lpf; Bacteria,Urine 2+ /lpf
--- NOTE | 2021-12-27 13:06 | EXP.CARD.CON ---
History of Present Illness History of Present Illness Consult date: 12/27/21 Requesting physician: Ricky Shaver Consult reason: atrial fibrillation Chief complaint: weakness, chronic sob, diarrhea Additional Medical History:: Significant past medical hx -Alph 1 antitrypsin deficiency- receives weekly prolastin infusions and uses home oxygen -Essential HTN -Benign prostatic hyperplasia -Beta thalassemia -History of bladder carcinoma -History of chemotherapy History of present illness: 81-year-old white male with above past medical history presented to ER on 12/26/2021 with complaints of generalized weakness, exacerbation of chronic shortness of breath and diarrhea. Family reports patient had seen his PCP 1 week prior and was found to be mildly dehydrated. He received 1 L of NS outpatient and felt better. Patient was discharged home and states that over the past couple of days he started to feel worse with increased generalized weakness and increased shortness of breath. Of note on presentation to ER he reported no bowel movement for the past 48 hours. He was also found to be in A. fib RVR with rate in the in the 120s-130s. Patient was also noted to by hypotensive with a systolic pressure in the low 70s initially. Patient was started on Dilt drip and rate did improve but remained tachy. denies hx of afib. Initial chest x-ray showed no cardiopulmonary process. Labs were significant as follow: Hgb 12.2 which has since trended down to 10.0, Plt count 121, sodium 135, Creatinine 2.10 trending down to 1.7, Lactate 2.9-1.1, Trop 0.06 trending down to 0.04. Patient was admitted for new onset afib rvr, rex, and dehydration. Family states patient continued to feel worse today with complaint of worsening soa and worsening generalized weakness. Patient developed bradycardia with rate in the 50s and became hypotensive with systolic pressure in the 60s about an hour after was given Metoprolol Tartrate 50mg PO at which time cardiology was consulted. A preliminary echo read reports a normal EF. Patient was given 1100ml ns bolus and placed in trendelenburg position with little improvement of BP. Rate did recover to 60s. Patient was given Chaka bolus and started on drip will little initial improvement. Patient was given 1 time dose of hydrocortisone 100mg IV per Dr. Little for concern for adrenal crises secondary to recent steroid use for COPD. Repeat Chaka bolus was also given. BP has slowly improved. Currently, patient remains afib but is rate controlled and BP is systolic > 100. Patient denies chest pain, states he only feels tired and cant breath. Sats remain mid 90s on 3L [place]. [facility] Medical History (Updated 12/27/21 @ 13:38 by Mckenna Dominique APRN) Nihzc-[id number] deficiency Benign prostatic hyperplasia Beta-thalassemia COPD exacerbation History of bladder carcinoma History of chemotherapy Hypertension Lung disease On home oxygen therapy Surgical History History of appendectomy Family History Other No significant family history Social History (Updated 12/26/21 @ 17:14 by Wilda Anderson RN) Smoking Status: Never smoker second hand exposure: No alcohol intake: current current occupational status: retired Travel in the last 8 weeks: None household members: spouse housing: house current occupation: SELF EMPLOYED current occupational exposures/hazards: Yes caffeine: Yes Review of Systems Review of Systems Review of systems:: pertinent systems reviewed and negative unless documented below *Cardiovascular Cardiovascular: Denies chest pain and Reports dyspnea *Respiratory Respiratory: Reports dyspnea *Gastrointestinal Comments: recent diarrhea in the past week but now complaining of no BM. Exam Data for Last 24 hours Vital signs and Labs for Last 24 Hours: Temp Pulse Resp BP Pulse Ox 97.6
--- NOTE | 2021-12-27 14:56 | PC.NURSE ---
AT 1030 THIS MORNING APPROXIMATELY 1 HOUR AFTER METOPROLOL WAS GIVEN PT'S BP WENT FROM 105/54 TO 72/45 AND HR 110 TO 74. PT CONTINUES TO REMAIN IN AFIB. PT IS ALERT AND ORIENTED AND IS ABLE TO ANSWER QUESTIONS. NOTIFIED DR. BLAS AND HE STATED TO HOLD THE NIGHT DOSE OF METOPROLOL, GIVE IVF BOLUS, STOP THE CARDIZEM DRIP AND CONSULT CARDIOLOGY. WITH CARDIOLOGY AT BEDSIDE PT'S BP WAS 65/41 AFTER 1100 ML IVF BOLUS. NOTIFIED AND A 200 MCG MI BOLUS X2 WAS ORDERED AND PT WAS STARTED ON MI DRIP. HYDROCORTISONE 100 MG IV GIVEN. AFTER DRIP WAS TITRATED TO 90 MCG/MIN BP STARTED TO IMPROVE 106/61. HR 73. BP AT 1500 98/67 MI AT 60 MCG/MIN. HR 82. WILL CONTINUE TO MONITOR.
--- NOTE | 2021-12-27 16:22 | PC.NURSE ---
BP 113/65. MI DRIP AT 40MCG/MIN. HR 86.
--- NOTE | 2021-12-27 18:16 | PC.NURSE ---
PT'S BP 116/81. HR 88. DRIP WAS STOPPED AT 1800. WILL CONTINUE TO MONITOR.
[2021-12-28] VITALS (15 sets, daily range): BP systolic 101–130; BP diastolic 60–86; PULSE 77–110; RESP 18–21; TEMP 36.4–36.7; O2SAT 90–98; BMI 26.2
--- NOTE | 2021-12-28 04:34 | PC.NURSE ---
Pt A&O x4. Has slept at intervals this shift. VSS. Pt remains on 4L O2 NC. Lungs noted to have wheezing to bilateral upper lobes. Has productive cough. Pt is afib on telemetry. BP and HR has remained stable this shift. Pt has voided x2. Total urine output is 325 ml. No BM this shift. Call light at bedside.
[2021-12-28 08:44] LABS: Basophils # 0.1 K/mm3 (0-0.2); Basophils % 0.5 % (0.1-2.0); Eosinophils % 0.4 % (0.1-12.0); Hematocrit 34.1 % (42.0-52.0); Hemoglobin 10.7 g/dL (14.1-18.0); Lymphocytes # 1.5 K/mm3 (0.7-4.5); Lymphocytes % 16.1 % (10-50); Mean Corpuscular HGB Conc 31.4 g/dL (31.8-35.4); Mean Corpuscular Hemoglobin 20.8 pg (27.0-31.2); Mean Corpuscular Volume 66.1 fl (80-94); Mean Platelet Volume 9.3 fl (7.4-10.4); Monocytes # 0.5 K/mm3 (0.1-1.0); Monocytes % 5.4 % (1.7-9.3); Neutrophils # 7.2 K/mm3 (1.8-7.8); Neutrophils % 77.5 % (37.0-80.0); Platelet Count 204 K/mm3 (142-424); Red Blood Count 5.16 M/mm3 (4.60-6.20); Red Cell Distribution Width 17.1 % (11.5-17.5); White Blood Count 9.3 K/mm3 (4.8-10.8)
--- NOTE | 2021-12-28 09:02 | EXP.PN ---
Subjective *Date: 12/28/21 *Time: 13:37 Interval history: Feels well this morning, no significant events overnight. Rested better than he had been and is eating breakfast at time of exam this morning. Denies chest pain, palpitations, pain. His dyspnea and cough are at his baseline and is comfortable on 4L NC O2 which he uses continuously at home as well. Chaka-synephrine drip is off this morning and heart rate controlled now around 90 at time of exam and blood pressure normal. Cardiology and pulmonology consulting. He hasn't had a bowel movement but is voiding in urinal without difficulty. Last bowel movement was Friday a week ago but prior to that had been in the habit of taking anti-diarrheal medication daily. Added stool softener last evening. Exam Data for Last 24 hours Vital signs and Labs for Last 24 Hours: Temp Pulse Resp BP Pulse Ox 97.6 F 102 H 18 130/86 95 12/28/21 07:52 12/28/21 08:00 12/28/21 08:00 12/28/21 06:00 12/28/21 08:00 Laboratory Results - last 24 hr 12/27/21 02:00: Urine Color Lara, Urine Appearance Clear, Urine pH 5.5, Ur Specific [place] 1.020, Urine Protein 1+, Urine Glucose (UA) Negative, Urine Ketones Negative, Urine Blood Negative, Urine Nitrate Negative, Urine Bilirubin Negative, Urine Urobilinogen 1.0, Ur Leukocyte Esterase Negative, Urine RBC Occasional, Urine WBC Occasional, Ur Squamous Epith Cells 3-5, Amorphous Sediment Trace, Urine Bacteria 2+ 12/27/21 05:45: WBC 8.1, RBC 4.72, Hgb 10.0 L D, Hct 30.3 L, MCV 64.2 L, MCH 21.1 L, MCHC 32.9, RDW 16.9, Plt Count 132 L, MPV 11.2 H, Neut % (Auto) 66.1, Lymph % (Auto) 18.8, [place] % (Auto) 8.6, Eos % (Auto) 6.0, Baso % (Auto) 0.5, Neut # (Auto) 5.4, Lymph # (Auto) 1.5, Bertie # (Auto) 0.7, Eos # (Auto) 0.5 H, Baso # (Auto) 0.0 12/27/21 11:46: POC Glucose 155 H 12/28/21 08:32: WBC 9.3, RBC 5.16, Hgb 10.7 L, Hct 34.1 L, MCV 66.1 L, MCH 20.8 L, MCHC 31.4 L, RDW 17.1, Plt Count 204 D, MPV 9.3, Neut % (Auto) 77.5, Lymph % (Auto) 16.1, Bertie % (Auto) 5.4, Eos % (Auto) 0.4, Baso % (Auto) 0.5, Neut # (Auto) 7.2, Lymph # (Auto) 1.5, Bertie # (Auto) 0.5, Eos # (Auto) 0.0, Baso # (Auto) 0.1 I & O for Last 24 hours: Intake & Output 12/25/21 12/26/21 12/27/21 12/28/21 11:59 11:59 11:59 11:59 Intake Total 5222 / 5222 873 / 873 Output Total 750 / 850 575 / 575 Balance 4472 / 4372 298 / 298 Weight 176 lb 7.68 oz 176 lb 14.4 oz Constitutional Constitutional: no acute distress *Routine HEENT Exam Head: Present normocephalic Eye: Present conjunctivae pink ENT: Present mucous membranes moist *Routine Neck Exam Neck: Present supple *Routine Respiratory Exam Respiratory: Present accessory muscle use, decreased breath sounds and able to speak in complete sentences Comments: at baseline for patient given his chronic lung disease *Routine Cardiovascular Exam Cardiovascular: Present irregular rhythm; Absent murmur *Routine Abdominal Exam Abdominal: Present soft and normoactive bowel sounds; Absent tenderness *Routine Rectal Exam Patient deferred: visual exam *Routine Exam Patient deferred: penile exam *Routine Extremities Exam Extremities: Present pulses intact; Absent cyanosis or edema *Routine Skin Exam Skin: Present intact and warm *Routine Neurological Exam Neurological: Present alert and normal speech Assessment and Plan *Assessment and plan (1) Atrial fibrillation with RVR: Status: Acute Category: Medical Code(s): I48.91 - Unspecified atrial fibrillation (2) COPD exacerbation: Status: Acute Category: Medical Code(s): J44.1 - Chronic obstructive pulmonary disease with (acute) exacerbation (3) Acute kidney injury: Status: Acute Category: Medical Code(s): N17.9 - Acute kidney failure, unspecified (4) HTN (hypertension): Status: Acute Category: Medical Code(s): I10 - Essential (primary) hypertension (5) Elevated troponin: Status: Acute Category
[2021-12-28 09:10] LABS: Chloride 105 mmol/L (98-107)
[2021-12-28 09:11] LABS: Potassium 3.6 mmoL/L (3.5-5.1); Sodium 138 mmol/L (136-145)
[2021-12-28 09:14] LABS: Anion Gap 14.6 mEq/L (5-15); Blood Urea Nitrogen 44 mg/dl (9-20); Calcium 7.4 mg/dl (8.4-10.2); Carbon Dioxide 22 mmol/L (22.0-30.0); Creatinine Clearance Estimated 40 mL/min (50-200); Estimated Glomerular Filt Rate 41 ml/min (>60); GFR (African American) 50 ML/MIN (>60); Glucose 160 mg/dl (74-100)
--- NOTE | 2021-12-28 09:20 | EXP.CARD.PN ---
Subjective Subjective Date: 12/28/21 Time: 08:00 Principal diagnosis: afib rvr, diarrhea, weakness Interval history: Patient doing well this am, sitting up in bed eating breakfast. Reports rested well last night. Sob improving. Off of chaka drip and BP in the 130s. Remains afib rate of 100. Denies chest pain. Labs reviewed and improving. Exam Data for Last 24 hours Vital signs and Labs for Last 24 Hours: Temp Pulse Resp BP Pulse Ox 97.6 F 102 H 18 130/86 95 12/28/21 07:52 12/28/21 08:00 12/28/21 08:00 12/28/21 06:00 12/28/21 08:00 Laboratory Results - last 24 hr 12/27/21 02:00: Urine Color Lara, Urine Appearance Clear, Urine pH 5.5, Ur Specific [place] 1.020, Urine Protein 1+, Urine Glucose (UA) Negative, Urine Ketones Negative, Urine Blood Negative, Urine Nitrate Negative, Urine Bilirubin Negative, Urine Urobilinogen 1.0, Ur Leukocyte Esterase Negative, Urine RBC Occasional, Urine WBC Occasional, Ur Squamous Epith Cells 3-5, Amorphous Sediment Trace, Urine Bacteria 2+ 12/27/21 05:45: WBC 8.1, RBC 4.72, Hgb 10.0 L D, Hct 30.3 L, MCV 64.2 L, MCH 21.1 L, MCHC 32.9, RDW 16.9, Plt Count 132 L, MPV 11.2 H, Neut % (Auto) 66.1, Lymph % (Auto) 18.8, [place] % (Auto) 8.6, Eos % (Auto) 6.0, Baso % (Auto) 0.5, Neut # (Auto) 5.4, Lymph # (Auto) 1.5, [place] # (Auto) 0.7, Eos # (Auto) 0.5 H, Baso # (Auto) 0.0 12/27/21 11:46: POC Glucose 155 H 12/28/21 08:32: WBC 9.3, RBC 5.16, Hgb 10.7 L, Hct 34.1 L, MCV 66.1 L, MCH 20.8 L, MCHC 31.4 L, RDW 17.1, Plt Count 204 D, MPV 9.3, Neut % (Auto) 77.5, Lymph % (Auto) 16.1, [place] % (Auto) 5.4, Eos % (Auto) 0.4, Baso % (Auto) 0.5, Neut # (Auto) 7.2, Lymph # (Auto) 1.5, [place] # (Auto) 0.5, Eos # (Auto) 0.0, Baso # (Auto) 0.1 I & O for Last 24 hours: Intake & Output 12/25/21 12/26/21 12/27/21 12/28/21 23:59 23:59 23:59 23:59 Intake Total 1994 3740 / 3740 360 / 360 Output Total 1175 / 1175 150 / 150 Balance 1994 2565 / 2565 210 / 210 Weight 161 lb 1 oz 176 lb 7.68 oz 176 lb 14.4 oz Constitutional Constitutional: no acute distress *Routine Respiratory Exam Respiratory: Present CTA bilaterally and symmetric chest movement *Routine Cardiovascular Exam Cardiovascular: Present Normal S1 and Normal S2 Comments: afib *Routine Abdominal Exam Abdominal: Present soft and normoactive bowel sounds; Absent tenderness *Routine Extremities Exam Extremities: Present full ROM and normal capillary refill; Absent edema *Routine Skin Exam Skin: Present intact, dry and warm Detailed Neck Exam: Thyroids Thyroid: Absent bruit Progress Note: A&P Assessment and plan (1) Atrial fibrillation with RVR: Status: Acute (2) COPD exacerbation: Status: Acute (3) Acute kidney injury: Status: Acute Assessment and Plan Assessment and Plan for All Diagnoses:: Afib rvr Chadsvasc score 3 -Remains afib rate in low 100s at rest -Currently getting Lovenox, recommend transition to OAC when bryce and GI upset resolves -Prelim echo shows normal EF. -Per Dr. Little: Metoprolol 25mg PO BID and add cardizem cd 120mg QD. do not exceed 50mg of BB per day due to underlying lung disease. Acute bradycardia/hypotension- -After dilt drip and BB. Both currently on hold. -Patient given one dose of Hydrocortisone 100mg IV x [address] Little orders after patient has little response to fluids and chaka. -Currently on Chaka drip and doing well. Wean as can tolerate4. 12/28- resolved Elevated trop -Trending down -EKG negative for acute ischemic changes -No hx of chest pain, reports chronic soa. Outpatient stress test as needed Hypertension - Currently off Chaka for hypotension and maintaining good BP. Resume home losartan-hctz when BP allows. BRYCE -Improving, monitor. Chronic soa/Alph-1 antitrypsin deficiency/Chronic copd -Managed by primary service and pulmonary
--- NOTE | 2021-12-28 09:48 | EXP.PULM.PN ---
Subjective *Date: 12/28/21 *Time: 10:53 Interval history: No acute respiratory events overnight. Patient continued to have a cough and productive phlegm. Improving. Pulmonology Exam Inpatient Vital signs and Labs for Last 24 Hours: Temp Pulse Resp BP Pulse Ox 98.0 F 99 H 19 112/86 95 12/28/21 08:00 12/28/21 08:00 12/28/21 08:00 12/28/21 08:00 12/28/21 08:00 Laboratory Results - last 24 hr 12/27/21 02:00: Urine Color Lara, Urine Appearance Clear, Urine pH 5.5, Ur Specific [place] 1.020, Urine Protein 1+, Urine Glucose (UA) Negative, Urine Ketones Negative, Urine Blood Negative, Urine Nitrate Negative, Urine Bilirubin Negative, Urine Urobilinogen 1.0, Ur Leukocyte Esterase Negative, Urine RBC Occasional, Urine WBC Occasional, Ur Squamous Epith Cells 3-5, Amorphous Sediment Trace, Urine Bacteria 2+ 12/27/21 05:45: WBC 8.1, RBC 4.72, Hgb 10.0 L D, Hct 30.3 L, MCV 64.2 L, MCH 21.1 L, MCHC 32.9, RDW 16.9, Plt Count 132 L, MPV 11.2 H, Neut % (Auto) 66.1, Lymph % (Auto) 18.8, [place] % (Auto) 8.6, Eos % (Auto) 6.0, Baso % (Auto) 0.5, Neut # (Auto) 5.4, Lymph # (Auto) 1.5, [place] # (Auto) 0.7, Eos # (Auto) 0.5 H, Baso # (Auto) 0.0 12/27/21 11:46: POC Glucose 155 H 12/28/21 08:32: WBC 9.3, RBC 5.16, Hgb 10.7 L, Hct 34.1 L, MCV 66.1 L, MCH 20.8 L, MCHC 31.4 L, RDW 17.1, Plt Count 204 D, MPV 9.3, Neut % (Auto) 77.5, Lymph % (Auto) 16.1, [place] % (Auto) 5.4, Eos % (Auto) 0.4, Baso % (Auto) 0.5, Neut # (Auto) 7.2, Lymph # (Auto) 1.5, [place] # (Auto) 0.5, Eos # (Auto) 0.0, Baso # (Auto) 0.1 12/28/21 08:32: Sodium 138, Potassium 3.6, Chloride 105, Carbon Dioxide 22, Anion Gap 14.6, BUN 44 H, Creatinine 1.60 H, Estimated Creat Clear 40, Estimated GFR 41 L, Est GFR ( Amer) 50 L, Glucose 160 H, Calcium 7.4 L I & O for Labs for Last 24 Hours: Intake & Output 12/25/21 12/26/21 12/27/21 12/28/21 23:59 23:59 23:59 23:59 Intake Total 1994 3740 / 3740 360 / 360 Output Total 1175 / 1175 150 / 150 Balance 1994 2565 / 2565 210 / 210 Weight 161 lb 1 oz 176 lb 7.68 oz 176 lb 14.4 oz Head: Present normocephalic and atraumatic ENT: Present normal exam and normal oropharynx Neck: Present normal inspection and full ROM Respiratory: Present prolonged expiratory phase and able to speak in complete sentences; Absent respiratory distress, wheezes or crackles Cardiac: Present S1/S2, Tachycardia and radial pulses present GI: Present soft and distention; Absent tenderness or guarding Skin: Present intact; Absent cyanosis or jaundice Neuro: Present alert, awake and oriented x 3 Extremities: Present normal inspection; Absent clubbing or cyanosis Psychiatric: Present normal affect and cooperative Assessment and Plan *Assessment and plan (1) COPD exacerbation: Status: Acute Category: Medical Code(s): J44.1 - Chronic obstructive pulmonary disease with (acute) exacerbation Plan #COPD exacerbation: History of COPD and alpha-1 antitrypsin deficiency. On Advair along with levalbuterol on as-needed basis. Patient complains of worsening respiratory distress compared to his baseline along with cough and productive phlegm. His other primary reasons for for admission including GI upset dehydration and atrial fibrillation. No recent prior PFTs / CT chest available for review. Talk to the patient daughter, MZ phenotype, unknown levels at this point. Initiated on Prolastin around 1989 and has been receiving infusion since then Chest x-ray on admission reviewed, bilateral diffuse emphysematous changes and pleural thickening noted. No dense consolidation/airspace disease noted. Right hilar prominence noted concerning for multiple calcified pulmonary nodules. No evidence of significant leukocytosis on admission. Labs reviewed, hyponatremia and hypokalemia noted along with elevated BUN and creatinine and decreased GFR at 39. Interval update: No acute respiratory vents overnight. Continues to remain on chronic 4 L nasal cannula oxygen suppleme
--- NOTE | 2021-12-28 14:23 | PC.NURSE ---
DR AMIN OK'D TO TRANSFER PT FROM STEP-DOWN TO MED-SURG BED.
--- NOTE | 2021-12-28 15:38 | PC.NURSE ---
PT IS AOX4, ABLE TO MAKE NEEDS KNOWN TO STAFF, HAS REQUIRED 4LNC FOR O2 SUPPORT. HAS SPENT THIS SHIFT IN BED R/T ACTIVITY INTOLERANCE. THIS RN DID ASK PT IF HE WANTED TO GET UP TO CHAIR BUT HE STATED HE WAS TOO TIRED. PT GETS WINDED WITH EXERTION AND PULSE OXIMETER HAS SHOWN O2 DESATURATIONS WHEN MOVING IN BED/EATING. PT IS CURRENTLY 94% ON 4LNC. DID REQUIRE 1 BREATHING TREATMENT R/T HIS WORK OF BREATHING THIS SHIFT. PT APPETITE HAS BEEN FAIR. HE HAS USED THE URINAL IN THE BED WITH MINIMAL ASSISTANCE THIS SHIFT. HE DID HAVE ONE OCCURRENCE WHEN HE SPILT HIS URINAL AND WAS GIVEN A FULL BED BATH AND LINEN CHANGE HE TOLERATED THIS FAIRLY WELL BUT DID NEED BREAKS. HE HAS BEEN TRANSFERRED FROM STEP DOWN TO A MED-SURG LEVEL OF CARE. STILL NO BM NOTED. DENIES ABD PAIN ABD IS SOFT AND NON-TENDER BUT DOES APPEAR DISTENDED.
[2021-12-29] VITALS (12 sets, daily range): BP systolic 125–130; BP diastolic 66–89; PULSE 80–110; RESP 18–20; TEMP 36.4–36.9; O2SAT 94–97; BMI 25.3
--- NOTE | 2021-12-29 00:09 | PC.NURSE ---
PT IS RESTING IN BED. HAS SLEPT ON AND OFF T/O THE SHIFT. PT STATES HE IS FEELING BETTER. CONTROLLED AFIB ON THE MONITOR. O2 SATURATION HAS MAINTAINED 90-95% ON 4 L NC. PT CONTINUES WITH PERSISTENT PRODUCTIVE COUGH THAT HE STATES HE HAS HAD FOR YEARS. LUNG SOUNDS DIMINISHED. ABDOMEN IS NON TENDER/DISTENDED WITH ACTIVE BOWEL SOUNDS. PT STATES HE HAS NOT HAD A BOWEL MOVEMENT SINCE LAST FRIDAY. WILL CONTINUE TO MONITOR.
--- NOTE | 2021-12-29 08:45 | EXP.PN ---
Subjective *Date: 12/29/21 *Time: 08:45 Interval history: Patient feels a little better today, did not get out of bed yesterday, did not sleep well last night. Exam Data for Last 24 hours Vital signs and Labs for Last 24 Hours: Temp Pulse Resp BP Pulse Ox 98.0 F 93 H 20 125/75 95 12/29/21 07:46 12/29/21 07:46 12/29/21 07:46 12/29/21 07:46 12/29/21 08:42 Laboratory Results - last 24 hr 12/28/21 08:32: WBC 9.3, RBC 5.16, Hgb 10.7 L, Hct 34.1 L, MCV 66.1 L, MCH 20.8 L, MCHC 31.4 L, RDW 17.1, Plt Count 204 D, MPV 9.3, Neut % (Auto) 77.5, Lymph % (Auto) 16.1, [place] % (Auto) 5.4, Eos % (Auto) 0.4, Baso % (Auto) 0.5, Neut # (Auto) 7.2, Lymph # (Auto) 1.5, [place] # (Auto) 0.5, Eos # (Auto) 0.0, Baso # (Auto) 0.1 12/28/21 08:32: Sodium 138, Potassium 3.6, Chloride 105, Carbon Dioxide 22, Anion Gap 14.6, BUN 44 H, Creatinine 1.60 H, Estimated Creat Clear 40, Estimated GFR 41 L, Est GFR ( Amer) 50 L, Glucose 160 H, Calcium 7.4 L I & O for Last 24 hours: Intake & Output 12/26/21 12/27/21 12/28/21 12/29/21 23:59 23:59 23:59 23:59 Intake Total 1994 3740 / 3740 840 / 840 Output Total 1175 / 1175 620 / 620 275 / 275 Balance 1994 2565 / 2565 220 / 220 -275 / -275 Weight 161 lb 1 oz 176 lb 7.68 oz 176 lb 14.4 oz 171 lb 5 oz Microbiology Reports for the Last 24 Hours: Microbiology 12/26/21 13:27 Blood Blood Culture - Preliminary NO GROWTH AFTER 48 HOURS 12/26/21 13:27 Blood Blood Culture - Preliminary NO GROWTH AFTER 48 HOURS 12/27/21 02:00 Urine,Clean Catch Urine Culture - Preliminary NO GROWTH AFTER 24 HOURS Constitutional Constitutional: no acute distress *Routine Respiratory Exam Respiratory: Present wheezes (few expiratory) *Routine Cardiovascular Exam Cardiovascular: Present irregular rhythm *Routine Abdominal Exam Abdominal: Present soft and normoactive bowel sounds; Absent tenderness *Routine Extremities Exam Extremities: Present full ROM and normal capillary refill; Absent edema *Routine Skin Exam Skin: Present intact, dry and warm Assessment and Plan *Assessment and plan (1) Atrial fibrillation with RVR: Status: Acute Category: Medical Code(s): I48.91 - Unspecified atrial fibrillation (2) COPD exacerbation: Status: Acute Category: Medical Code(s): J44.1 - Chronic obstructive pulmonary disease with (acute) exacerbation (3) Acute kidney injury: Status: Acute Category: Medical Code(s): N17.9 - Acute kidney failure, unspecified (4) HTN (hypertension): Status: Acute Category: Medical Code(s): I10 - Essential (primary) hypertension (5) Elevated troponin: Status: Acute Category: Medical Code(s): R77.8 - Other specified abnormalities of plasma proteins (6) AAT (lnlns-8-enhfqocfwrr) deficiency: Status: Acute Category: Medical Code(s): E88.01 - Dwsgg-5-bojbyixcclz deficiency (7) Anemia: Status: Acute Category: Medical Code(s): D64.9 - Anemia, unspecified (8) Hypokalemia: Status: Acute Category: Medical Code(s): E87.6 - Hypokalemia (9) Hypocalcemia: Status: Acute Category: Medical Code(s): E83.51 - Hypocalcemia Plan Patient is slowly improving, plan out of bed to chair today, continue current treatment.
--- NOTE | 2021-12-29 18:31 | PC.NURSE ---
pt has done well this shift. he has ambulated multiple times to the bathroom and back as well as sat up in the chair most of the shift. he has had two soft formed bowel movements. gets very short of air with ambulation he has been able to maintain his saturation on 4lnc. he is alert and appropriate. reports feeling like he has more energy today.
[2021-12-30] VITALS (9 sets, daily range): BP systolic 119–153; BP diastolic 67–83; PULSE 80–105; RESP 18–20; TEMP 36.4–36.6; O2SAT 93–97; BMI 25.2
--- NOTE | 2021-12-30 05:25 | PC.NURSE ---
NO ACUTE CHANGES SINCE PREVIOUS ASSESSMENT. PT HAS RESTED INTERMITTENTLY THIS SHIFT. BILATERAL BREATH SOUNDS ARE WHEEZY AND PT GETS EASILY OUT OF BREATH WITH ANY EXERTION. PT REMAINS ON 4L NASAL CANNULA AND IS TOLERATING WELL. PT HAS HAD A PRODUCTIVE INTERMITTENT COUGH THIS SHIFT. NO C/O N/V/D OR CHEST PAIN. PT HAS BEEN A-FIB TO SINUS ARRHYTHMIA ON TELE THIS SHIFT. CALL [facility] WITHIN REACH. VSS.
[2021-12-30 07:52] LABS: Basophils % 0.1 % (0.1-2.0); Eosinophils % 0.1 % (0.1-12.0); Hematocrit 29.1 % (42.0-52.0); Hemoglobin 9.2 g/dL (14.1-18.0); Lymphocytes # 0.9 K/mm3 (0.7-4.5); Lymphocytes % 12.8 % (10-50); Mean Corpuscular HGB Conc 31.6 g/dL (31.8-35.4); Mean Corpuscular Hemoglobin 20.6 pg (27.0-31.2); Mean Corpuscular Volume 65.3 fl (80-94); Mean Platelet Volume 8.1 fl (7.4-10.4); Monocytes # 0.6 K/mm3 (0.1-1.0); Monocytes % 8.8 % (1.7-9.3); Neutrophils # 5.5 K/mm3 (1.8-7.8); Neutrophils % 78.2 % (37.0-80.0); Platelet Count 206 K/mm3 (142-424); Red Blood Count 4.46 M/mm3 (4.60-6.20); Red Cell Distribution Width 17.6 % (11.5-17.5)
[2021-12-30 07:57] LABS: Chloride 106 mmol/L (98-107); Potassium 3.4 mmoL/L (3.5-5.1); Sodium 141 mmol/L (136-145)
[2021-12-30 08:00] LABS: Anion Gap 8.4 mEq/L (5-15); Blood Urea Nitrogen 40 mg/dl (9-20); Carbon Dioxide 30 mmol/L (22.0-30.0); Creatinine Clearance Estimated 51 mL/min (50-200); Estimated Glomerular Filt Rate 58 ml/min (>60); GFR (African American) 70 ML/MIN (>60); Glucose 95 mg/dl (74-100)
[2021-12-30 08:04] LABS: Calcium 7.7 mg/dl (8.4-10.2)
--- NOTE | 2021-12-30 09:48 | EXP.PHA.PN ---
Subjective *Date: 12/30/21 *Time: 09:48 Medical Exam Vital signs and Labs for Last 24 Hours: Temp Pulse Resp BP Pulse Ox FiO2 97.7 F 101 H 20 150/78 H 96 36 12/30/21 08:00 12/30/21 08:00 12/30/21 08:00 12/30/21 08:00 12/30/21 08:24 12/29/21 18:55 Laboratory Results - last 24 hr 12/30/21 06:52: WBC 7.0, RBC 4.46 L, Hgb 9.2 L, Hct 29.1 L, MCV 65.3 L, MCH 20.6 L, MCHC 31.6 L, RDW 17.6 H, Plt Count 206, MPV 8.1, Neut % (Auto) 78.2, Lymph % (Auto) 12.8, [place] % (Auto) 8.8, Eos % (Auto) 0.1, Baso % (Auto) 0.1, Neut # (Auto) 5.5, Lymph # (Auto) 0.9, [place] # (Auto) 0.6, Eos # (Auto) 0.0, Baso # (Auto) 0.0 12/30/21 06:52: Sodium 141, Potassium 3.4 L, Chloride 106, Carbon Dioxide 30, Anion Gap 8.4, BUN 40 H, Creatinine 1.20 D, Estimated Creat Clear 51, Estimated GFR 58 L, Est GFR ( Amer) 70 D, Glucose 95, Calcium 7.7 L I & O for Labs for Last 24 Hours: Intake & Output 12/27/21 12/28/21 12/29/21 12/30/21 23:59 23:59 23:59 23:59 Intake Total 3740 / 3740 840 / 840 360 / 480 600 / 600 Output Total 1175 / 1175 620 / 620 375 / 525 300 / 300 Balance 2565 / 2565 220 / 220 -15 / -45 300 / 300 Weight 80.05 kg 80.24 kg 77.706 kg 77.252 kg Microbiology Reports for the Last 24 Hours: Microbiology 12/27/21 02:00 Urine,Clean Catch Urine Culture - Final NO GROWTH AFTER 48 HOURS The patient's infection will respond to the chosen ABx?: Yes Is the patient receiving the right drug, dose, and route?: Yes Could a more targeted ABx be ordered?: No
--- NOTE | 2021-12-30 11:34 | EXP.ACUTE.PN ---
Subjective *Date: 12/30/21 *Time: 11:37 Interval history: Patient with no new complaints today. He still feels very week and is requiring assistance to walk. would like for physical therapy to see patient. He was able to eat a little more yesterday. Medical Exam Vital signs and Labs for Last 24 Hours: Temp Pulse Resp BP Pulse Ox FiO2 97.7 F 101 H 20 150/78 H 96 36 12/30/21 08:00 12/30/21 08:00 12/30/21 08:00 12/30/21 08:00 12/30/21 08:24 12/29/21 18:55 Laboratory Results - last 24 hr 12/30/21 06:52: WBC 7.0, RBC 4.46 L, Hgb 9.2 L, Hct 29.1 L, MCV 65.3 L, MCH 20.6 L, MCHC 31.6 L, RDW 17.6 H, Plt Count 206, MPV 8.1, Neut % (Auto) 78.2, Lymph % (Auto) 12.8, [place] % (Auto) 8.8, Eos % (Auto) 0.1, Baso % (Auto) 0.1, Neut # (Auto) 5.5, Lymph # (Auto) 0.9, [place] # (Auto) 0.6, Eos # (Auto) 0.0, Baso # (Auto) 0.0 12/30/21 06:52: Sodium 141, Potassium 3.4 L, Chloride 106, Carbon Dioxide 30, Anion Gap 8.4, BUN 40 H, Creatinine 1.20 D, Estimated Creat Clear 51, Estimated GFR 58 L, Est GFR ( Amer) 70 D, Glucose 95, Calcium 7.7 L I & O for Labs for Last 24 Hours: Intake & Output 12/27/21 12/28/21 12/29/21 12/30/21 23:59 23:59 23:59 23:59 Intake Total 3740 / 3740 840 / 840 360 / 480 600 / 600 Output Total 1175 / 1175 620 / 620 375 / 525 300 / 300 Balance 2565 / 2565 220 / 220 -15 / -45 300 / 300 Weight 176 lb 7.68 oz 176 lb 14.4 oz 171 lb 5 oz 170 lb 5 oz Microbiology Reports for the Last 24 Hours: Microbiology 12/27/21 02:00 Urine,Clean Catch Urine Culture - Final NO GROWTH AFTER 48 HOURS Constitutional: Present no acute distress Respiratory: Present CTA bilaterally Cardiac: Present Regular Rhythm GI: Present soft and normal bowel sounds; Absent tenderness Assessment and Plan *Assessment and plan (1) Atrial fibrillation with RVR: Status: Acute Category: Medical Code(s): I48.91 - Unspecified atrial fibrillation (2) COPD exacerbation: Status: Acute Category: Medical Code(s): J44.1 - Chronic obstructive pulmonary disease with (acute) exacerbation (3) Acute kidney injury: Status: Acute Category: Medical Code(s): N17.9 - Acute kidney failure, unspecified (4) HTN (hypertension): Status: Acute Category: Medical Code(s): I10 - Essential (primary) hypertension (5) Elevated troponin: Status: Acute Category: Medical Code(s): R77.8 - Other specified abnormalities of plasma proteins (6) AAT (nszva-2-atamchvtptf) deficiency: Status: Acute Category: Medical Code(s): E88.01 - Ctvft-2-ktjrgfuvtno deficiency (7) Anemia: Status: Acute Category: Medical Code(s): D64.9 - Anemia, unspecified (8) Hypokalemia: Status: Acute Category: Medical Code(s): E87.6 - Hypokalemia (9) Hypocalcemia: Status: Acute Category: Medical Code(s): E83.51 - Hypocalcemia Plan H/H has dropped today, potassium is low. Start potassium replacement today, will order PT evaluation.
--- NOTE | 2021-12-30 17:49 | PC.NURSE ---
No acute changes from previous assessment. Family has been at bedside all of shift. VSS. A fib on tele. Has ambulated to bathroom. CB in reach. Remains on 4 L NC.
[2021-12-31] VITALS: PULSE 70
[2021-12-31 04:00] VITALS: BP 134/90; PULSE 84; PULSE 90; RESP 19; TEMP 36.7; O2SAT 97
[2021-12-31 05:00] VITALS: BMI 25.6
--- NOTE | 2021-12-31 05:35 | PC.NURSE ---
NO ACUTE CHANGES SINCE PREVIOUS ASSESSMENT. LUNG SOUNDS ARE DIMINISHED IN THE BILATERAL BASES. REMAINS ON 4L NASAL CANNULA AND IS TOLERATING WELL. PT DID SIT ON THE SIDE OF THE BED THIS SHIFT WITH MINIMAL SHORTNESS OF BREATH. PT STATED IT FELT GOOD TO SIT UP FOR A LITTLE WHILE. NO C/O N/V/D OR CHEST PAIN. REMAINS CONTROLLED A-FIB ON TELE. VSS. CALL [facility] WITHIN REACH.
[2021-12-31 06:28] LABS: Basophils % 0.2 % (0.1-2.0); Eosinophils % 0.2 % (0.1-12.0); Hematocrit 28.5 % (42.0-52.0); Hemoglobin 9.1 g/dL (14.1-18.0); Lymphocytes % 13.9 % (10-50); Mean Corpuscular Hemoglobin 20.8 pg (27.0-31.2); Mean Corpuscular Volume 64.9 fl (80-94); Mean Platelet Volume 8.6 fl (7.4-10.4); Monocytes # 0.7 K/mm3 (0.1-1.0); Monocytes % 10.7 % (1.7-9.3); Neutrophils # 5.2 K/mm3 (1.8-7.8); Platelet Count 191 K/mm3 (142-424); Red Cell Distribution Width 17.8 % (11.5-17.5)
[2021-12-31 06:38] LABS: Chloride 105 mmol/L (98-107)
[2021-12-31 06:39] LABS: Potassium 3.7 mmoL/L (3.5-5.1); Sodium 141 mmol/L (136-145)
[2021-12-31 06:41] LABS: Blood Urea Nitrogen 36 mg/dl (9-20); Creatinine Clearance Estimated 52 mL/min (50-200); Estimated Glomerular Filt Rate 58 ml/min (>60); GFR (African American) 70 ML/MIN (>60)
[2021-12-31 06:42] LABS: Anion Gap 8.7 mEq/L (5-15); Calcium 7.9 mg/dl (8.4-10.2); Carbon Dioxide 31 mmol/L (22.0-30.0); Glucose 99 mg/dl (74-100)
[2021-12-31 08:00] VITALS: BP 142/81; PULSE 117; RESP 22; TEMP 36.5; O2SAT 94
--- NOTE | 2021-12-31 08:44 | EXP.DC.SUM ---
General Admission date:: 12/26/21 Discharge date: 12/31/21 HPI HPI HPI: 81-year-old white male with history of alpha 1 antitrypsin deficiency who receives weekly Prolastin infusions and takes home inhaler therapy and home oxygen. He, in spite of this significant emphysema and alpha-1 antitrypsin issue maintains excellent functional status. He saw me in my office last week for diarrhea, weakness and was found to be mildly dehydrated. We administered 1 L of saline as an outpatient, did labs which showed minimal dehydration but otherwise were unremarkable, and attempted to get a stool PCR but his diarrhea had stopped. He felt better and was discharged home from the outpatient arena but over the last couple of days is felt worse. He notes he is had no bowel movements for about 48 hours and he feels like his belly is bloated. Very weak and increasing shortness of air, went to the emergency department today. ER work-up revealed atrial fibrillation with rapid ventricular response, evidence of dehydration with acute kidney injury and elevated BNP. Admitted to hospital for IV fluids, on IV Cardizem drip. I evaluated him on second floor today. Hospital Course Hospital Course Hospital Course: Patient was admitted, initially placed on diltiazem intravenous infusion and a heart rate was better controlled but still in the low 100s. Metoprolol p.o. was administered x1 which caused low blood pressure and bradycardia. He was placed on Chaka-Synephrine infusions and fluids and changed over to p.o. diltiazem and lower dose p.o. metoprolol and improved over the next 24 hours, Chaka-Synephrine drip was able to discontinued. He was begun on anticoagulation for his A. fib issues. Echocardiogram revealed stable ejection fraction and bilateral atrial enlargement as expected from his pulmonary disease. Over the next couple of days he improved, able to eat well. Remained weak and shortness of air was still noted but this was relayed his baseline. This morning he was eating, doing his self-care activities well with the assistance of his and still dyspneic but more towards his baseline. Plan okay to discharge home. We will continue on p.o. diltiazem and metoprolol. Add Eliquis 2.5 mg twice daily. I will see him in 1 week in my office for short-term hospital follow-up. Patient will need home health evaluation for PT/OT/nursing care given his weakness, dyspnea and his homebound status. I performed a sofa-[id number]-[id number] exam on him today to make this determination. Exam Data for Last 24 hours Vital signs and Labs for Last 24 Hours: Temp Pulse Resp BP Pulse Ox FiO2 98.1 F 84 19 134/90 97 36 12/31/21 04:00 12/31/21 04:00 12/31/21 04:00 12/31/21 04:00 12/31/21 04:00 12/29/21 18:55 Laboratory Results - last 24 hr 12/31/21 05:44: WBC 7.0, RBC 4.40 L, Hgb 9.1 L, Hct 28.5 L, MCV 64.9 L, MCH 20.8 L, MCHC 32.0, RDW 17.8 H, Plt Count 191, MPV 8.6, Neut % (Auto) 75.0, Lymph % (Auto) 13.9, [place] % (Auto) 10.7 H, Eos % (Auto) 0.2, Baso % (Auto) 0.2, Neut # (Auto) 5.2, Lymph # (Auto) 1.0, [place] # (Auto) 0.7, Eos # (Auto) 0.0, Baso # (Auto) 0.0 12/31/21 05:44: Sodium 141, Potassium 3.7, Chloride 105, Carbon Dioxide 31 H, Anion Gap 8.7, BUN 36 H, Creatinine 1.20, Estimated Creat Clear 52, Estimated GFR 58 L, Est GFR ( Amer) 70, Glucose 99, Calcium 7.9 L I & O for Last 24 hours: Intake & Output 12/28/21 12/29/21 12/30/21 12/31/21 11:59 11:59 11:59 11:59 Intake Total 873 / 873 480 / 480 960 / 960 1680 / 1680 Output Total 795 / 795 525 / 525 400 / 400 200 / 200 Balance 78 / 78 -45 / -45 560 / 560 1480 / 1480 Weight 176 lb 14.4 oz 171 lb 5 oz 170 lb 5 oz 173 lb 4 oz Constitutional Constitutional: no acute distress *Routine HEENT Exam Head: Present normocephalic Eye: Present EOMI and PERRL ENT: Present mucous membranes moist *Routine Neck Exam Neck: Present supple; Absent lymphadenopathy *Routine Respiratory Exam Respiratory: Present accessory musc
--- NOTE | 2021-12-31 10:17 | SW/DCPLANNER ---
Patient information/order has been faxed to [facility]. Per Intake (Gena) juan antonio/ King patient information/order has been reviewed and services will begin tomorrow. Patient will discharge home later today.
--- NOTE | 2022-01-01 11:41 | CARE MANAGER ---
Spoke with patient for post discharge phone interview, states that patient is doing well and has no complaints. Patient is aware of follow-up appointments and has medications.
== END 2021-12-31 10:20 | disposition home health service (06) | DRG 641 ==
LOC: ER 15:53 → 2ND 16:09
PROVIDERS: Family Medicine; Nurse Practitioner Family; Admitting Provider Internal Medicine Adolescent Medicine; Emergency Provider Emergency Medicine; PCP Internal Medicine Adolescent Medicine; Visit Provider Internal Medicine Adolescent Medicine
DX: E86.0 Dehydration (principal); N17.9 Acute kidney failure, unspecified; I48.91 Unspecified atrial fibrillation; E88.01 Alpha-1-antitrypsin deficiency; N40.0 Benign prostatic hyperplasia without lower urinary tract symptoms; Z85.51 Personal history of malignant neoplasm of bladder; I10 Essential (primary) hypertension; J43.9 Emphysema, unspecified; Z99.81 Dependence on supplemental oxygen; I95.9 Hypotension, unspecified; R00.1 Bradycardia, unspecified; E87.6 Hypokalemia; E83.42 Hypomagnesemia
CPT/HCPCS: 36415; 71045; 74021; 80048; 80053; 81001; 82150; 82962; 83605; 83880; 84436; 84443; 84479; 84484; 85025; 87040; 87086; 93005; 93306; 94640; 94760; 94761; 96360; 96361; 96365; 99291; C9803; J0256; U0003; U0005

== ENCOUNTER 2022-01-04 12:36 | Outpatient (CLI) | payer MEDICARE, BC, SELFPAY ==
[2022-01-04 12:55] VITALS: BP 144/87; PULSE 105; RESP 20; O2SAT 94
[2022-01-04 13:45] VITALS: BP 133/74; PULSE 110; RESP 18; O2SAT 96
[2022-01-04 14:10] VITALS: BP 136/72; PULSE 113; RESP 18
== END 2022-01-04 14:50 | disposition home or self-care (01) ==
LOC: INF 12:38
PROVIDERS: PCP Internal Medicine Adolescent Medicine; Visit Provider Internal Medicine Adolescent Medicine
DX: E88.01 Alpha-1-antitrypsin deficiency (principal)
CPT/HCPCS: 96365; J0256

== ENCOUNTER 2022-01-11 13:10 | Outpatient (CLI) | payer MEDICARE, BC, SELFPAY ==
[2022-01-11 12:35] VITALS: BP 145/81; PULSE 101; RESP 20; TEMP 36.9; O2SAT 95
[2022-01-11 13:35] VITALS: BP 124/74; PULSE 68; RESP 20; TEMP 36.9; O2SAT 95
[2022-01-11 15:15] VITALS: BP 148/78; PULSE 68; RESP 20; TEMP 36.9; O2SAT 95
== END 2022-01-11 15:32 | disposition home or self-care (01) ==
PROVIDERS: PCP Internal Medicine Adolescent Medicine; Visit Provider Internal Medicine Adolescent Medicine
DX: E88.01 Alpha-1-antitrypsin deficiency (principal)
CPT/HCPCS: 96365; 96366; J0256

== ENCOUNTER 2022-01-18 13:18 | Outpatient (CLI) | payer MEDICARE, BC, SELFPAY ==
[2022-01-18 13:25] VITALS: BMI 23.0
[2022-01-18 13:30] VITALS: BP 150/92; PULSE 68; RESP 20; TEMP 36.9; O2SAT 95
[2022-01-18 14:45] VITALS: BP 126/71; PULSE 100; RESP 18; O2SAT 92
[2022-01-18 15:11] LABS: Ferritin 52.8 ng/ml (17.9-464)
== END 2022-01-18 15:35 | disposition home or self-care (01) ==
PROVIDERS: PCP Internal Medicine Adolescent Medicine; Visit Provider Internal Medicine Adolescent Medicine
DX: E88.01 Alpha-1-antitrypsin deficiency (principal); R79.89 Other specified abnormal findings of blood chemistry
CPT/HCPCS: 82728; 96365; J0256

== ENCOUNTER 2022-01-25 12:18 | Outpatient (CLI) | payer MEDICARE, BC, SELFPAY ==
[2022-01-25 12:50] VITALS: BP 126/72; PULSE 96; RESP 21; O2SAT 96
[2022-01-25 14:50] VITALS: BP 131/82; PULSE 95; RESP 21
== END 2022-01-25 14:50 | disposition home or self-care (01) ==
PROVIDERS: PCP Internal Medicine Adolescent Medicine; Visit Provider Internal Medicine Adolescent Medicine
DX: E88.01 Alpha-1-antitrypsin deficiency (principal)
CPT/HCPCS: 96365; J0256

== ENCOUNTER → 2022-01-28 12:37 | Outpatient (CLI) | payer MEDICARE, BC, SELFPAY ==
[2022-01-28 14:45] VITALS: PULSE 107; PULSE 95
--- NOTE | 2022-01-28 15:12 | CT_ITS ---
FINAL REPORT TECHNIQUE: Axial imaging of the chest was obtained without contrast. Reformatted images were also obtained and reviewed.This study was performed with techniques to keep radiation doses as low as reasonably achievable, (ALARA). Individualized dose reduction technique using automated exposure control or adjustment of mA and/or kV according to the patient's size were employed. CLINICAL HISTORY: Alpha1 anti COMPARISON: 03/13/2017 FINDINGS: There is no axillary adenopathy. There is mild, stable mediastinal adenopathy which is likely reactive. Heart size is normal. There are new, moderate bilateral pleural effusions which partially obscure previously seen basilar emphysema. There is no pericardial effusion. There are extensive coarse linear densities bilaterally likely due to fibrosis. More linear opacities at the lung bases are favored represent scarring. IMPRESSION: New, moderate pleural effusions. Fibrosis and basilar scarring. Reviewed, Interpreted and Dictated by Jose Rodriguez MD Transcribed by Araceli Brambila Authenticated and [facility]
--- NOTE | 2022-01-28 16:43 | RESP.PFTSS ---
Walking pulse oximetry was not performed. Patient refused. Patients SpO2 dropped from 92% to 82% (with oxygen at 4LPM) while moving from the wheel chair, two feet to the chair in the PFT room.
== END ==
PROVIDERS: PCP Internal Medicine Adolescent Medicine; Visit Provider Internal Medicine Pulmonary Disease
DX: E88.01 Alpha-1-antitrypsin deficiency (principal); R06.02 Shortness of breath
CPT/HCPCS: 71250; 94060; 94640; 94727; 94729

== ENCOUNTER 2022-01-31 14:35 | Outpatient (CLI) | payer MEDICARE, BC, SELFPAY ==
[2022-01-31 14:43] VITALS: BMI 23.0
--- NOTE | 2022-01-31 15:02 | XR_ITS ---
FINAL REPORT TECHNIQUE: Chest PA & Lateral CLINICAL HISTORY: Effusion COMPARISON: December 26, 2021 FINDINGS: 2 views of the chest were performed. The heart size is normal. The mediastinum is within normal limits. The lungs are hyperinflated. There are small bilateral pleural effusions. There is abnormal scarring in the lung bases, more evident than on prior. There is no pneumothorax. The bony thorax appears intact. IMPRESSION: Small bilateral pleural effusions. Scarring in the lung bases more evident than on the prior exam. Reviewed, Interpreted and Dictated by Jose Rodriguez MD Transcribed by Matias Ramos Authenticated and [facility]
[2022-01-31 15:09] LABS: Chloride 95 mmol/L (98-107)
[2022-01-31 15:10] LABS: Potassium 3.3 mmoL/L (3.5-5.1); Sodium 140 mmol/L (136-145)
[2022-01-31 15:12] LABS: Alanine Aminotransferase 21 U/L (12-78); Aspartate Amino Transferase 38 U/L (17-59); Basophils # 0.1 K/mm3 (0-0.2); Basophils % 0.6 % (0.1-2.0); Blood Urea Nitrogen 19 mg/dl (9-20); Creatinine Clearance Estimated 51 mL/min (50-200); Eosinophils # 0.2 K/mm3 (0.0-0.4); Eosinophils % 1.9 % (0.1-12.0); Estimated Glomerular Filt Rate 64 ml/min (>60); GFR (African American) 77 ML/MIN (>60); Hemoglobin 12.4 g/dL (14.1-18.0); Lymphocytes # 1.3 K/mm3 (0.7-4.5); Mean Corpuscular HGB Conc 30.3 g/dL (31.8-35.4); Mean Corpuscular Hemoglobin 20.9 pg (27.0-31.2); Mean Corpuscular Volume 68.9 fl (80-94); Mean Platelet Volume 8.1 fl (7.4-10.4); Monocytes # 0.7 K/mm3 (0.1-1.0); Monocytes % 6.2 % (1.7-9.3); Neutrophils # 8.8 K/mm3 (1.8-7.8); Neutrophils % 79.2 % (37.0-80.0); Platelet Count 244 K/mm3 (142-424); Red Blood Count 5.95 M/mm3 (4.60-6.20); Red Cell Distribution Width 17.9 % (11.5-17.5); White Blood Count 11.1 K/mm3 (4.8-10.8)
[2022-01-31 15:13] LABS: Albumin Level 3.9 g/dl (3.5-5.0); Albumin/Globulin Ratio 1.2 (1.1-1.8); Alkaline Phosphatase 171 U/L (38-126); Anion Gap 11.3 mEq/L (5-15); Bilirubin,Total 1.2 mg/dl (0.2-1.3); Calcium 8.9 mg/dl (8.4-10.2); Carbon Dioxide 37 mmol/L (22.0-30.0); Globulin 3.3 g/dL (1.3-3.2); Glucose 109 mg/dl (74-100); Total Protein,Serum 7.2 g/dl (6.3-8.2)
[2022-01-31 15:22] LABS: NT Pro Brain Natriuretic Pep. 3210 pg/mL (0-450)
--- NOTE | 2022-01-31 15:43 | PC.NURSE ---
1450-BLOOD DRAWN FROM LEFT AC USING BUTTERFLY NEEDLE TO CHECK LABS PER DR LAMBERT.
== END 2022-01-31 15:00 | disposition home or self-care (01) ==
LOC: INF 14:36
PROVIDERS: PCP Internal Medicine Adolescent Medicine; Visit Provider Internal Medicine Pulmonary Disease
DX: R06.02 Shortness of breath (principal); I50.9 Heart failure, unspecified; J45.909 Unspecified asthma, uncomplicated; J84.9 Interstitial pulmonary disease, unspecified
CPT/HCPCS: 36415; 71046; 80053; 83880; 85025

== ENCOUNTER 2022-02-01 13:14 | Outpatient (CLI) | payer MEDICARE, BC, SELFPAY ==
[2022-02-01 13:45] VITALS: BP 166/98; PULSE 86; RESP 21; O2SAT 95
[2022-02-01 15:45] VITALS: BP 144/82; PULSE 92; RESP 21; O2SAT 95
== END 2022-02-01 15:45 | disposition home or self-care (01) ==
PROVIDERS: PCP Internal Medicine Adolescent Medicine; Visit Provider Internal Medicine Adolescent Medicine
DX: E88.01 Alpha-1-antitrypsin deficiency (principal)
CPT/HCPCS: 96365; J0256

== ENCOUNTER 2022-02-08 10:53 | Outpatient (CLI) | payer MEDICARE, BC, SELFPAY ==
[2022-02-08 11:49] VITALS: BP 108/65; PULSE 86; RESP 18; TEMP 36.4; O2SAT 93
[2022-02-08 12:15] VITALS: BP 112/69; PULSE 84; RESP 16; O2SAT 94
[2022-02-08 12:45] VITALS: BP 122/65; PULSE 79; RESP 20; O2SAT 94
[2022-02-08 13:15] VITALS: BP 129/74; PULSE 82; RESP 18; O2SAT 93
[2022-02-08 13:30] VITALS: BP 130/81; PULSE 85; RESP 20; TEMP 36.6; O2SAT 94
== END 2022-02-08 13:30 | disposition home or self-care (01) ==
LOC: INF 10:54
PROVIDERS: PCP Internal Medicine Adolescent Medicine; Visit Provider Internal Medicine Adolescent Medicine
DX: E88.01 Alpha-1-antitrypsin deficiency (principal)
CPT/HCPCS: 96365; J0256

== ENCOUNTER 2022-02-13 11:00 | Outpatient (CLI) | payer MEDICARE, BC, SELFPAY ==
[2022-02-13 11:35] VITALS: BP 155/94; PULSE 89; RESP 18; O2SAT 91
[2022-02-13 13:45] VITALS: BP 157/89; PULSE 88; RESP 22; O2SAT 96
== END 2022-02-13 13:45 | disposition home or self-care (01) ==
LOC: INF 11:01
PROVIDERS: PCP Internal Medicine Adolescent Medicine; Visit Provider Internal Medicine Adolescent Medicine
DX: E88.01 Alpha-1-antitrypsin deficiency (principal)
CPT/HCPCS: 96365; J0256

== ENCOUNTER → 2022-02-21 10:03 | Outpatient (CLI) | payer MEDICARE, BC, SELFPAY ==
--- NOTE | 2022-02-21 10:03 | US_ITS ---
FINAL REPORT CLINICAL HISTORY: Liver and renal, pt stated dr wanted to see if he had fluid in chest, FINDINGS: Sonographic images of the abdomen were obtained. The liver has an unremarkable appearance with normal echogenicity. There is sludge and gallstones within the gallbladder, predominantly sludge. There is no evidence of biliary ductal dilatation. The common hepatic duct measures 3 mm, which is within normal limits. Limited images of the pancreas are unremarkable. The spleen size is normal. The right kidney measures 9.8 cm in length. The left kidney measures 8.4 cm in length. Cysts are noted on the left kidney. There is no evidence of hydronephrosis. The aorta has an unremarkable appearance. Limited images of the inferior vena cava are unremarkable. IMPRESSION: Sludge and stones within the gallbladder. Left renal cysts. Reviewed, Interpreted and Dictated by Jose Rodriguez MD Transcribed by Ninoska Ulrich Authenticated and [facility]
== END ==
PROVIDERS: PCP Internal Medicine Adolescent Medicine; Visit Provider Internal Medicine Pulmonary Disease
DX: E88.01 Alpha-1-antitrypsin deficiency (principal); J90 Pleural effusion, not elsewhere classified
CPT/HCPCS: 76700

== ENCOUNTER 2022-02-22 12:21 | Outpatient (CLI) | payer MEDICARE, BC, SELFPAY ==
[2022-02-22 12:45] VITALS: BP 153/89; PULSE 116; RESP 20; TEMP 36.9; O2SAT 92
[2022-02-22 14:00] VITALS: BP 138/82; PULSE 98; RESP 20; O2SAT 92
== END 2022-02-22 14:00 | disposition home or self-care (01) ==
PROVIDERS: PCP Internal Medicine Adolescent Medicine; Visit Provider Internal Medicine Adolescent Medicine
DX: E88.01 Alpha-1-antitrypsin deficiency (principal)
CPT/HCPCS: 96365; J0256

== ENCOUNTER → 2022-02-28 14:57 | Outpatient (CLI) | payer MEDICARE, BC, SELFPAY ==
--- NOTE | 2022-02-28 15:00 | XR_ITS ---
FINAL REPORT CLINICAL HISTORY: COPD COMPARISON: 01/31/2022 FINDINGS: Two views of the chest were obtained. The heart size and pulmonary vascularity are within normal limits. The mediastinum is normal. There are bibasilar pulmonary opacities, worse. There are small pleural effusions. There is no pneumothorax. The bony thorax is intact. IMPRESSION: Findings consistent with worsening bibasilar atelectasis or pneumonia. Small pleural effusions. Reviewed, Interpreted and Dictated by Hal Pastor III, MD Transcribed by Ninoska Ulrich Authenticated and [facility]
== END ==
PROVIDERS: PCP Internal Medicine Adolescent Medicine; Visit Provider Internal Medicine Pulmonary Disease
DX: R06.02 Shortness of breath (principal)
CPT/HCPCS: 71046

== ENCOUNTER → 2022-03-01 13:02 | Outpatient (CLI) | payer MEDICARE, BC, SELFPAY ==
[2022-03-01 13:09] VITALS: BMI 23.0
[2022-03-01 14:05] VITALS: BP 140/81; PULSE 95; RESP 20; O2SAT 93
[2022-03-01 14:35] LABS: Ferritin 47.6 ng/ml (17.9-464)
[2022-03-01 15:05] VITALS: BP 141/84; PULSE 85; RESP 18
== END ==
PROVIDERS: PCP Internal Medicine Adolescent Medicine; Visit Provider Internal Medicine Adolescent Medicine
DX: E88.01 Alpha-1-antitrypsin deficiency (principal); R79.89 Other specified abnormal findings of blood chemistry
CPT/HCPCS: 82728; 96365; J0256

== ENCOUNTER 2022-03-08 12:14 | Outpatient (CLI) | payer MEDICARE, BC, SELFPAY ==
[2022-03-08 12:55] VITALS: BP 162/99; PULSE 103; RESP 20; O2SAT 95
[2022-03-08 14:30] VITALS: BP 155/87; PULSE 93; RESP 20; O2SAT 92
== END 2022-03-08 14:55 | disposition home or self-care (01) ==
LOC: INF 12:14
PROVIDERS: PCP Internal Medicine Adolescent Medicine; Visit Provider Internal Medicine Adolescent Medicine
DX: E88.01 Alpha-1-antitrypsin deficiency (principal)
CPT/HCPCS: 96365; J0256

== ENCOUNTER 2022-03-14 10:57 | Outpatient (CLI) | payer MEDICARE, BC, SELFPAY ==
[2022-03-14 10:59] VITALS: BMI 23.0
[2022-03-14 11:35] VITALS: BP 159/97; PULSE 88; RESP 22; O2SAT 94
[2022-03-14 11:39] LABS: Chloride 91 mmol/L (98-107); Sodium 138 mmol/L (136-145)
[2022-03-14 11:40] LABS: Potassium 3.4 mmoL/L (3.5-5.1)
[2022-03-14 11:43] LABS: Blood Urea Nitrogen 21 mg/dl (9-20); Creatinine Clearance Estimated 56 mL/min (50-200); Estimated Glomerular Filt Rate 71 ml/min (>60); GFR (African American) 86 ML/MIN (>60); Glucose 104 mg/dl (74-100)
[2022-03-14 11:50] LABS: Anion Gap 11.4 mEq/L (5-15); Carbon Dioxide 39 mmol/L (22.0-30.0)
[2022-03-14 13:55] VITALS: BP 159/73; PULSE 96; RESP 22; O2SAT 93
== END 2022-03-14 13:55 | disposition home or self-care (01) ==
PROVIDERS: PCP Internal Medicine Adolescent Medicine; Visit Provider Internal Medicine Adolescent Medicine
DX: E88.01 Alpha-1-antitrypsin deficiency (principal)
CPT/HCPCS: 80048; 96365; 96366; J0256

== ENCOUNTER 2022-03-22 12:26 | Outpatient (CLI) | payer MEDICARE, BC, SELFPAY ==
[2022-03-22 13:05] VITALS: BP 146/92; PULSE 92; RESP 20; O2SAT 92
[2022-03-22 13:50] VITALS: BP 144/87; PULSE 92; RESP 20
[2022-03-22 14:35] VITALS: BP 148/90; PULSE 90; RESP 20
== END 2022-03-22 15:10 | disposition home or self-care (01) ==
LOC: INF 12:27
PROVIDERS: PCP Internal Medicine Adolescent Medicine; Visit Provider Internal Medicine Adolescent Medicine
DX: E88.01 Alpha-1-antitrypsin deficiency (principal)
CPT/HCPCS: 96365; J0256

== ENCOUNTER → 2022-03-29 12:44 | Outpatient (CLI) | payer MEDICARE, BC, SELFPAY ==
[2022-03-29 12:55] VITALS: BMI 23.0
[2022-03-29 13:20] VITALS: BP 157/110; PULSE 94; RESP 22; O2SAT 91
[2022-03-29 14:00] LABS: Ferritin 168 ng/ml (17.9-464)
== END ==
PROVIDERS: PCP Internal Medicine Adolescent Medicine; Visit Provider Internal Medicine Adolescent Medicine
DX: E88.01 Alpha-1-antitrypsin deficiency (principal); R79.89 Other specified abnormal findings of blood chemistry
CPT/HCPCS: 82728; 96365; J0256

== ENCOUNTER → 2022-04-01 15:25 | Outpatient (CLI) | payer MEDICARE, BC, SELFPAY ==
[2022-04-01 16:07] LABS: ABG Base Excess 15.5 mmol/L (-2.4-2.3); ABG HCO3 38.6 mmhg (22.0-26.0); ABG Oxygen Saturation 94 % (90-100); ABG PO2 70.6 mmhg (80-100); ABG TCO2 40.2 mmhg (23-27)
[2022-04-01 16:12] LABS: ABG PCO2 50.2 mmhg (35.0-45.0)
[2022-04-01 16:14] LABS: Allen's Test Acceptable; Oxygen 4 LPM NC %
[2022-04-01 16:15] LABS: Source Right Radial
[2022-04-01 16:28] LABS: Basophils # 0.1 K/mm3 (0-0.2); Basophils % 0.4 % (0.1-2.0); Eosinophils # 0.1 K/mm3 (0.0-0.4); Eosinophils % 0.4 % (0.1-12.0); Hematocrit 38.2 % (42.0-52.0); Hemoglobin 11.9 g/dL (14.1-18.0); Lymphocytes # 1.6 K/mm3 (0.7-4.5); Lymphocytes % 12.6 % (10-50); Mean Corpuscular HGB Conc 31.1 g/dL (31.8-35.4); Mean Corpuscular Hemoglobin 20.4 pg (27.0-31.2); Mean Corpuscular Volume 65.5 fl (80-94); Mean Platelet Volume 7.5 fl (7.4-10.4); Monocytes # 0.7 K/mm3 (0.1-1.0); Monocytes % 5.9 % (1.7-9.3); Neutrophils % 80.7 % (37.0-80.0); Platelet Count 319 K/mm3 (142-424); Red Blood Count 5.83 M/mm3 (4.60-6.20); Red Cell Distribution Width 16.2 % (11.5-17.5); White Blood Count 12.4 K/mm3 (4.8-10.8)
[2022-04-01 17:12] LABS: Alanine Aminotransferase 22 U/L (12-78); Albumin Level 3.2 g/dl (3.5-5.0); Alkaline Phosphatase 190 U/L (38-126); Aspartate Amino Transferase 40 U/L (17-59); Bilirubin,Total 1.1 mg/dl (0.2-1.3); Blood Urea Nitrogen 20 mg/dl (9-20); Calcium 8.2 mg/dl (8.4-10.2); Chloride 83 mmol/L (98-107); Estimated Glomerular Filt Rate 71 ml/min (>60); GFR (African American) 86 ML/MIN (>60); Globulin 3.3 g/dL (1.3-3.2); Glucose 100 mg/dl (74-100); Potassium 3.1 mmoL/L (3.5-5.1); Sodium 132 mmol/L (136-145); Total Protein,Serum 6.5 g/dl (6.3-8.2)
[2022-04-01 17:19] LABS: Anion Gap 9.1 mEq/L (5-15); Carbon Dioxide 43 mmol/L (22.0-30.0)
[2022-04-01 17:41] LABS: Thyroid Stimulating Hormone 0.58 uIU/mL (0.465-4.68)
== END ==
PROVIDERS: PCP Internal Medicine Adolescent Medicine; Visit Provider Internal Medicine Adolescent Medicine
DX: I48.91 Unspecified atrial fibrillation (principal); E88.01 Alpha-1-antitrypsin deficiency
CPT/HCPCS: 36415; 80053; 82803; 84443; 85025

== ENCOUNTER 2022-06-28 05:22 | Emergency (ER) | payer OTHER, MEDICARE, BC, SELFPAY ==
--- NOTE | 2022-06-28 05:34 | ECG_ITS ---
APPROVED REPORT Exam: Resting ECG HR:98 bpm ECG Measurements Heart Rate 98 AXES QRSd 102 QRS 112 QT 313 T 37 QTc 369 Conclusion ATRIAL FIBRILLATION RIGHT AXIS DEVIATION [QRS AXIS > 100] PATTERN CONSISTENT WITH PULMONARY DISEASE NONSPECIFIC ST & T-WAVE ABNORMALITY ABNORMAL ECG UNCONFIRMED REPORT Electronically signed by : Ricky Shaver MD 06/28/2022 17:01:35
[2022-06-28 05:48] VITALS: BP 193/120; PULSE 111; RESP 16; TEMP 36.6; O2SAT 98; BMI 22.8
--- NOTE | 2022-06-28 05:53 | XR_ITS ---
PROCEDURE INFORMATION: Exam: XR Pelvis Exam date and time: 06/28/2022 6:20 AM Age: 81 years old Clinical indication: Injury or trauma; Fall; Blunt trauma (contusions or hematomas); Does not apply; Pelvic region TECHNIQUE: Imaging protocol: Radiologic exam of the pelvis. Views: 1 or 2 view. COMPARISON: CR XR ACUTE ABDOMEN SERIES 12/26/2021 6:28 PM FINDINGS: Bones/joints: There is no acute fracture demonstrated. There are symmetric degenerative changes of the hips with mild articular cartilage loss and marginal osteophyte formation. Soft tissues: Unremarkable. IMPRESSION: There is no acute pelvic fracture demonstrated.
--- NOTE | 2022-06-28 05:53 | CT_ITS ---
PROCEDURE INFORMATION: Exam: CT Head Without Contrast Exam date and time: 06/28/2022 6:01 AM Age: 81 years old Clinical indication: Injury or trauma; Fall; Blunt trauma (contusions or hematomas) TECHNIQUE: Imaging protocol: Computed tomography of the head without contrast. Radiation optimization: All CT scans at this facility use at least one of these dose optimization techniques: automated exposure control; mA and/or kV adjustment per patient size (includes targeted exams where dose is matched to clinical indication); or iterative reconstruction. REPORTING DATA: Count of CT and Cardiac NM exams in prior 12 months: This patient has received 3 known CTs and 0 known cardiac nuclear medicine studies in the 12 months prior to the current study. COMPARISON: CT SOFT TISSUE NECK WO CON 08/28/2019 6:13 PM FINDINGS: Brain: The brain demonstrates diffuse volume loss. There is white matter hypodensity most consistent with chronic small vessel ischemic change. There is a focal region of encephalomalacia in the left parietal lobe most consistent with a chronic infarct. There are small foci of low attenuation in the basal ganglia bilaterally related to chronic lacunar infarctions. Cerebral ventricles: The ventricles and CSF spaces are proportionately enlarged. Paranasal sinuses: Visualized sinuses are unremarkable. No fluid levels. Mastoid air cells: Visualized mastoid air cells are well aerated. Bones/joints: No acute fracture. Soft tissues: There is a left periorbital soft tissue contusion. IMPRESSION: 1. Atrophy and the sequela of chronic ischemia. 2. No sequela of acute intracranial trauma.
--- NOTE | 2022-06-28 05:53 | XR_ITS ---
PROCEDURE INFORMATION: Exam: XR Chest Exam date and time: 06/28/2022 6:20 AM Age: 81 years old Clinical indication: Injury or trauma; Fall; Blunt trauma (contusions or hematomas) TECHNIQUE: Imaging protocol: Radiologic exam of the chest. Views: 1 view. COMPARISON: CR XR CHEST 2V 02/28/2022 3:02 PM FINDINGS: Lungs: There is hyperinflation consistent with COPD. There are bilateral perihilar infiltrates which may be secondary to multifocal pneumonia. Pleural spaces: There is a small left pleural effusion. Heart/Mediastinum: No cardiomegaly. Bones/joints: There are degenerative changes of the spine. Over penetration somewhat limits assessment for nondisplaced rib fractures. IMPRESSION: 1. COPD. 2. Bilateral perihilar infiltrates most consistent with pneumonia. Follow-up to clearing on radiographs recommended.
--- NOTE | 2022-06-28 05:53 | CT_ITS ---
PROCEDURE INFORMATION: Exam: CT Cervical Spine Without Contrast Exam date and time: 06/28/2022 6:01 AM Age: 81 years old Clinical indication: Injury or trauma; Fall TECHNIQUE: Imaging protocol: Computed tomography of the cervical spine without contrast. Radiation optimization: All CT scans at this facility use at least one of these dose optimization techniques: automated exposure control; mA and/or kV adjustment per patient size (includes targeted exams where dose is matched to clinical indication); or iterative reconstruction. REPORTING DATA: Count of CT and Cardiac NM exams in prior 12 months: This patient has received 3 known CTs and 0 known cardiac nuclear medicine studies in the 12 months prior to the current study. COMPARISON: CT SOFT TISSUE NECK WO CON 08/28/2019 6:13 PM FINDINGS: Bones/joints: There is 2 mm of anterolisthesis of C4 upon C5. There is loss of disc space height throughout related to degenerative disc disease. There are facet joint degenerative changes throughout. There is no acute cervical spine fracture. Lungs: There are centrilobular emphysematous changes in the lung apices consistent with COPD. Soft tissues: Unremarkable. IMPRESSION: 1. Degenerative changes throughout. 2. There is no acute cervical spine fracture.
--- NOTE | 2022-06-28 05:53 | CT_ITS ---
PROCEDURE INFORMATION: Exam: CT Maxillofacial Without Contrast Exam date and time: 06/28/2022 6:04 AM Age: 81 years old Clinical indication: Injury or trauma; Fall; Blunt trauma (contusions or hematomas); Forehead TECHNIQUE: Imaging protocol: Computed tomography of the face without contrast. Radiation optimization: All CT scans at this facility use at least one of these dose optimization techniques: automated exposure control; mA and/or kV adjustment per patient size (includes targeted exams where dose is matched to clinical indication); or iterative reconstruction. REPORTING DATA: Count of CT and Cardiac NM exams in prior 12 months: This patient has received 2 known CTs and 0 known cardiac nuclear medicine studies in the 12 months prior to the current study. COMPARISON: CT HEAD/BRAIN WO CON 06/28/2022 6:01 AM FINDINGS: Orbital cavities: Orbits are normal. Globes are unremarkable. Bones/joints: No acute fracture. Paranasal sinuses: Normal. No air-fluid levels. Soft tissues: There is a left periorbital superficial soft tissue contusion. IMPRESSION: No acute facial bone fracture.
[2022-06-28 06:05] LABS: Microscopic, Urine URINE MICROSCOPIC (MICROSCOPIC)
[2022-06-28 06:09] LABS: Chloride 84 mmol/L (98-107); Sodium 134 mmol/L (136-145)
[2022-06-28 06:10] LABS: Basophils % 0.2 % (0.1-2.0); Eosinophils # 0.1 K/mm3 (0.0-0.4); Eosinophils % 1.1 % (0.1-12.0); Hemoglobin 12.1 g/dL (14.1-18.0); Lymphocytes # 1.3 K/mm3 (0.7-4.5); Lymphocytes % 12.2 % (10-50); Mean Corpuscular HGB Conc 31.9 g/dL (31.8-35.4); Mean Corpuscular Hemoglobin 21.2 pg (27.0-31.2); Mean Corpuscular Volume 66.3 fl (80-94); Mean Platelet Volume 8.2 fl (7.4-10.4); Monocytes # 0.9 K/mm3 (0.1-1.0); Monocytes % 8.4 % (1.7-9.3); Neutrophils # 8.5 K/mm3 (1.8-7.8); Neutrophils % 78.1 % (37.0-80.0); Platelet Count 237 K/mm3 (142-424); Red Blood Count 5.72 M/mm3 (4.60-6.20); Red Cell Distribution Width 16.8 % (11.5-17.5); White Blood Count 10.9 K/mm3 (4.8-10.8)
[2022-06-28 06:12] LABS: Alanine Aminotransferase 24 U/L (12-78); Albumin Level 3.8 g/dl (3.5-5.0); Albumin/Globulin Ratio 1.1 (1.1-1.8); Alkaline Phosphatase 184 U/L (38-126); Aspartate Amino Transferase 52 U/L (17-59); Bilirubin,Total 1.6 mg/dl (0.2-1.3); Blood Urea Nitrogen 14 mg/dl (9-20); Creatinine Clearance Estimated 59 mL/min (50-200); Estimated Glomerular Filt Rate 92 ml/min (>60); GFR (African American) 112 ML/MIN (>60); Globulin 3.4 g/dL (1.3-3.2); Total Protein,Serum 7.2 g/dl (6.3-8.2)
[2022-06-28 06:13] LABS: Calcium 8.2 mg/dl (8.4-10.2); Glucose 107 mg/dl (74-100)
[2022-06-28 06:14] LABS: Appearance,Urine SL CLOUDY (Clear); Bilirubin,Urine Negative (Negative); Blood, Urine Negative (Negative); Color,Urine YELLOW (Yellow); Glucose,Urine (UA) Negative (Negative); Ketones,Urine Negative (Negative); Leukocyte Esterase,Urine Negative (Negative); Nitrate,Urine Negative (Negative); Protein,Urine TRACE (Negative)
[2022-06-28 06:19] LABS: Anion Gap 12.5 mEq/L (5-15); Carbon Dioxide 40 mmol/L (22.0-30.0)
--- NOTE | 2022-06-28 06:31 | HMH.EDFALL ---
Discharge Plan Disposition Patient Disposition: Home, Self-Care Prescriptions Prescriptions: No Action furosemide 20 mg tablet 40 mg PO DAILY Katherineacidjose, paracasei,B. lactis 1 EACH capsule 1 each PO DAILY diltiazem HCl 120 mg capsule,extended release 24hr 120 mg PO DAILY Eliquis 2.5 mg tablet 2.5 mg PO BID metoprolol tartrate 25 mg tablet 50 mg PO BID ipratropium-albuterol 0.5 mg-3 mg(2.5 mg base)/3 mL Solution For Nebulization 3 ml INHALATION Q6H PRN (Reason: Shortness Of Breath) fluticasone propion-salmeterol [Advair Diskus] 500-50 mcg/dose Blister With Device 1 inh INHALATION BID Prolastin 1,000 mg Recon Soln 1,000 mg IV WEEKLY albuterol sulfate [ProAir HFA] 8.5 GM HFA aerosol inhaler 2 puffs inhalation NEEDED PRN (Reason: Shortness Of Breath) tamsulosin 0.4 MG capsule 0.4 mg PO DAILY Referrals Follow up/Referrals: Ricky Shaver MD [Primary Care Provider] - See instructions Clinical Impressions Clinical Impression: Fall, Concussion without loss of consciousness, Acute hypokalemia, Facial laceration, Atrial fibrillation, COPD (chronic obstructive pulmonary disease) Instructions Patient Instructions: DI for Concussion, DI for Hypokalemia, DI for Laceration Repair -- Simple Discharge ED Provider: Raul (ED)Robel HPI General Chief Complaint: Fall Stated Complaint: fall Time Seen by Provider: 06/28/22 05:30 Mode of Arrival: EMS Source of Information: Patient and EMS Limitations: No Limitations Description of Symptoms (Recalled from ER Triage Doc. by RN): Patient arrives via ems. C/O fall at home. States he went to stand up and got dizzy and passed out hitting his head on an oxygen tank beside his fireplace. States he lost consciousness for a couple of seconds. Patients biggest concern is a laceration above his left eyebrow. Patient is alert and oriented. History of Present Illness HPI Narrative: hospice pt who fell at home as he stood up and has lac lt eyebrow - no loc - hx of a fib and copd - on lam CHEN complaint: fall Onset (ago): minute(s) Fall from: standing Fall witnessed: yes, by family Place fall occurred: home Loss of consciousness: none Prolonged down time: no Symptoms prior to fall: lightheadedness Location of injury: head and face Severity: moderate Associated symptoms (after fall): denies Related Data Home Medications Medication Instructions Recorded Confirmed albuterol sulfate 90 mcg/actuation 2 puffs inhalation NEEDED PRN 03/28/17 06/28/22 aerosol inhaler (ProAir HFA) Shortness Of Breath tamsulosin 0.4 mg capsule 0.4 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 lactis 10 1 each PO DAILY Supplement 11/04/19 06/28/22 billion cell capsule apixaban 2.5 mg tablet (Eliquis) 2.5 mg PO BID AFIB 01/04/22 06/28/22 diltiazem HCl 120 mg 120 mg PO DAILY AFIB 01/04/22 06/28/22 capsule,extended release 24 hr furosemide 20 mg tablet 40 mg PO DAILY Fluid 01/31/22 06/28/22 metoprolol tartrate 25 mg tablet 50 mg PO BID AFIB 01/31/22 06/28/22 alpha-1 proteinase inhib.(hum) 1,000 mg IV WEEKLY lung cancer 06/28/22 06/28/22 1,000 mg intravenous solution fluticasone 500 mcg-salmeterol 50 1 inh inhalation BID Breathing 06/28/22 06/28/22 mcg/dose blistr powdr for problems inhalation (Advair Diskus) ipratropium 0.5 mg-albuterol 3 mg 3 ml inhalation Q6H PRN Shortness 06/28/22 06/28/22 (2.5 mg base)/3 mL nebulization Of Breath soln Allergies Allergy/AdvReac Type Severity Reaction Status Date / Time No Known Allergies Allergy Verified 02/28/22 15:29 [facility] Disclaimer: The information contained in this section may have been updated after the patient was seen, as this information can be updated by other users. Medical History (Updated 06/28/22 @ 06:45 by Robel Carter (ED)MD) AAT ([id number]) deficiency Pxpwu-4-[id number] deficiency Atrial fi
[2022-06-28 06:35] LABS: Troponin I < 0.01 ng/ml (0.00-0.034)
[2022-06-28 06:36] LABS: Potassium 2.5 mmoL/L (3.5-5.1)
--- NOTE | 2022-06-28 06:36 | PC.NURSE ---
critical potassium of 2.5 called by lab. notified.
--- NOTE | 2022-06-28 06:41 | PC.NURSE ---
Pt states it has been 6 years since his last tetanus shot but he does not want another one. States at this point Im trying to take in less medicine than more . notified.
[2022-06-28 06:48] LABS: Amorphous Sediment,Urine 1+ /lpf; Bacteria,Urine 1+ /lpf; Squamous Epithelial Cell,Urine Occasional #/hpf (0-5)
[2022-06-28 06:52] VITALS: BP 189/110; PULSE 109; RESP 18; TEMP 36.6; O2SAT 99
== END 2022-06-28 07:12 | disposition home or self-care (01) ==
PROVIDERS: Emergency Provider Emergency Medicine; PCP Internal Medicine Adolescent Medicine
DX: S06.0X1A Concussion with loss of consciousness of 30 minutes or less, initial encounter (principal); E87.6 Hypokalemia; S01.112A Laceration without foreign body of left eyelid and periocular area, initial encounter; W19.XXXA Unspecified fall, initial encounter
CPT/HCPCS: 12011; 70450; 70486; 71045; 72125; 72170; 80053; 81001; 84484; 85025; 93005; 99284; 99285

== ENCOUNTER → 2022-07-08 15:17 | Outpatient (CLI) | payer OTHER, SELFPAY ==
[2022-07-08 17:12] LABS: Chloride 88 mmol/L (98-107); Sodium 134 mmol/L (136-145)
[2022-07-08 17:13] LABS: Potassium 3.5 mmoL/L (3.5-5.1)
[2022-07-08 17:15] LABS: Blood Urea Nitrogen 19 mg/dl (9-20); Estimated Glomerular Filt Rate 81 ml/min (>60); GFR (African American) 98 ML/MIN (>60)
[2022-07-08 17:16] LABS: Anion Gap 10.5 mEq/L (5-15); Carbon Dioxide 39 mmol/L (22.0-30.0); Glucose 106 mg/dl (74-100)
== END ==
PROVIDERS: PCP Internal Medicine Adolescent Medicine; Visit Provider Internal Medicine Adolescent Medicine
DX: E87.6 Hypokalemia (principal); E88.01 Alpha-1-antitrypsin deficiency
CPT/HCPCS: 80048

== ENCOUNTER → 2022-09-02 13:06 | Outpatient (CLI) | payer OTHER, SELFPAY ==
[2022-09-02 13:14] LABS: Microscopic, Urine URINE MICROSCOPIC (MICROSCOPIC)
[2022-09-02 14:15] LABS: Appearance,Urine CLEAR (Clear); Blood, Urine 3+ (Negative); Color,Urine YELLOW (Yellow); Glucose,Urine (UA) Negative (Negative); Ketones,Urine TRACE (Negative); Leukocyte Esterase,Urine 2+ (Negative); Nitrate,Urine POSITIVE (Negative); PH,Urine 6.5 (5.0-8.5); Protein,Urine 3+ (Negative); Specific Gravity, Urine 1.025 (1.005-1.030); Urobilinogen,Urine >=8.0 EU/dl (0.2)
[2022-09-02 15:04] LABS: Bilirubin,Urine 2+ (Negative)
[2022-09-02 15:07] LABS: Bacteria,Urine Trace /lpf; RBC,Urine TNTC #/hpf (0-3); Squamous Epithelial Cell,Urine Occasional #/hpf (0-5); WBC,Urine 20-50 #/hpf (0-3)
== END ==
PROVIDERS: PCP Internal Medicine Adolescent Medicine; Visit Provider Internal Medicine Adolescent Medicine
DX: R31.9 Hematuria, unspecified (principal); R41.0 Disorientation, unspecified; R82.90 Unspecified abnormal findings in urine; B95.1 Streptococcus, group B, as the cause of diseases classified elsewhere
CPT/HCPCS: 81001; 87086; 87186